=== PATIENT | female | born 1970 | race Caucasian/White ===

== ENCOUNTER 2020-04-02 12:42 | Outpatient (REF) | payer OTHER, SELFPAY ==
[2020-04-02 13:39] LABS: MANUAL DIFF FLAG NO
[2020-04-02 13:41] LABS: Basophils Absolute Auto 0.1 X10*3/uL (0.0-0.2); Basophils Percent Auto 0.6 % (0-2); Eosinophils Absolute Auto 0.1 X10*3/uL (0.0-0.4); Hematocrit 46.5 % (37-47); Hemoglobin 16.2 g/dl (12.0-16.0); Imm Gran Abs Auto 0.03 X10*3/uL (0.00-0.03); Imm Gran Pct Auto 0.3 % (0.0-0.4); Lymphocytes Absolute Auto 2.5 X10*3/uL (1.2-4.9); Lymphocytes Percent Auto 25.1 % (20-40); Mean Corpuscular HGB Conc 34.8 g/dl (31.0-35.0); Mean Corpuscular Hemoglobin 32.1 pg (27.0-33.0); Mean Corpuscular Volume 92.3 fL (80-98); Mean Platelet Volume 9.4 fL (9.4-12.3); Monocytes Absolute Auto 0.7 X10*3/uL (0.1-1.2); Monocytes Percent Auto 7.4 % (2-11); Neutrophils Absolute Auto 6.4 X10*3/uL (2.0-8.3); Neutrophils Percent Auto 65.6 % (45-73); Platelet Count 369 X10*3/uL (160-400); Red Blood Count 5.04 X10*6/uL (4.20-5.50); Red Cell Distribution Width 13.6 % (11.0-16.0); White Blood Count 9.8 X10*3/uL (4.8-10.8)
[2020-04-02 14:10] LABS: Alanine Aminotransferase 18 U/L (0-31); Albumin Level 4.6 g/dL (3.5-5.0); Alkaline Phosphatase 73 U/L (39-117); Anion Gap 14 (12-20); Aspartate Amino Transferase 17 U/L (5-31); Bilirubin Total 0.8 mg/dL (0.0-1.0); Blood Urea Nitrogen 8 mg/dL (9-16); C Reactive Protein 1.83 mg/dL (< or = 0.50); Calcium 9.1 mg/dL (8.4-10.2); Carbon Dioxide 25 mmol/L (22-29); Chloride 105 mmol/L (96-108); Estimated Glomerular Filt Rate > 60; Potassium 4.3 mmol/l (3.3-5.1); Sodium 140 mmol/L (135-145); Total Protein 7.2 g/dL (6.5-8.0)
[2020-04-02 14:22] LABS: Glucose Random 78 mg/dL (60-115)
== END 2020-04-02 12:43 | disposition home or self-care (01) ==
LOC: HO.10HDL 12:42
PROVIDERS: Visit Provider Internal Medicine
DX: M79.10 Myalgia, unspecified site (principal); E55.9 Vitamin D deficiency, unspecified; R53.1 Weakness
CPT/HCPCS: 36415; 80053; 82550; 85025; 86140

== ENCOUNTER 2020-04-18 15:38 | Outpatient (REF) | payer OTHER, SELFPAY ==
[2020-04-18 16:41] LABS: Glucose Urine UA NEG (NEG); Leukocyte Esterase Urine NEG (NEG); Nitrite Urine NEG (NEG); PH 5.5 (5.0-8.0); Specific Gravity - Urine <= 1.005 (1.005-1.025); Urine Blood TRACE (NEG); Urine Ketones NEG (NEG); Urine Protein NEG (NEG-TRACE)
[2020-04-18 16:43] LABS: Appearance Urine CLEAR; Color Urine STRAW
[2020-04-18 16:51] LABS: Bacteria Urine TRACE /LPF; RBC Urine 0 /HPF (0); Squamous Epithelial Cell Urine 1+ /LPF; WBC Urine 0 /HPF (0-4)
== END 2020-04-18 15:39 | disposition home or self-care (01) ==
LOC: HO.LAB 15:38
PROVIDERS: PCP Internal Medicine; Visit Provider Internal Medicine
DX: R30.0 Dysuria (principal)
CPT/HCPCS: 81001; 87086

== ENCOUNTER → 2020-06-28 12:52 | Outpatient (BNV) | payer BC, OTHER, SELFPAY | PROVIDERS: PCP Internal Medicine; Visit Provider Internal Medicine | DX: Z85.3 Personal history of malignant neoplasm of breast (principal); Z92.3 Personal history of irradiation | CPT/HCPCS: 99213 ==

== ENCOUNTER 2020-07-20 09:31 | Outpatient (REF) | payer OTHER, SELFPAY ==
[2020-07-20 10:10] LABS: MANUAL DIFF FLAG NO
[2020-07-20 10:13] LABS: Basophils Absolute Auto 0.1 X10*3/uL (0.0-0.2); Basophils Percent Auto 0.7 % (0-2); Eosinophils Absolute Auto 0.2 X10*3/uL (0.0-0.4); Eosinophils Percent Auto 2.2 % (0-4); Hematocrit 45.3 % (37-47); Hemoglobin 15.8 g/dl (12.0-16.0); Imm Gran Abs Auto 0.02 X10*3/uL (0.00-0.03); Imm Gran Pct Auto 0.3 % (0.0-0.4); Lymphocytes Absolute Auto 1.2 X10*3/uL (1.2-4.9); Lymphocytes Percent Auto 18.1 % (20-40); Mean Corpuscular HGB Conc 34.9 g/dl (31.0-35.0); Mean Corpuscular Hemoglobin 32.4 pg (27.0-33.0); Mean Platelet Volume 9.7 fL (9.4-12.3); Monocytes Absolute Auto 0.9 X10*3/uL (0.1-1.2); Monocytes Percent Auto 12.9 % (2-11); Neutrophils Absolute Auto 4.4 X10*3/uL (2.0-8.3); Neutrophils Percent Auto 65.8 % (45-73); Platelet Count 270 X10*3/uL (160-400); Red Blood Count 4.87 X10*6/uL (4.20-5.50); Red Cell Distribution Width 13.4 % (11.0-16.0); White Blood Count 6.7 X10*3/uL (4.8-10.8)
[2020-07-20 10:42] LABS: Alanine Aminotransferase 15 U/L (0-31); Albumin Level 4.3 g/dL (3.5-5.0); Alkaline Phosphatase 67 U/L (39-117); Anion Gap 15 (12-20); Aspartate Amino Transferase 15 U/L (5-31); Bilirubin Total 0.6 mg/dL (0.0-1.0); Blood Urea Nitrogen 9 mg/dL (9-16); Carbon Dioxide 25 mmol/L (22-29); Chloride 105 mmol/L (96-108); Cholesterol 182 mg/dL; Estimated Glomerular Filt Rate > 60; Glucose Fasting 98 mg/dL (60-99); HDL Cholesterol 56 mg/dL; LDL Cholesterol Calculated 115 mg/dl; Sodium 140 mmol/L (135-145); Total Protein 6.9 g/dL (6.5-8.0); Triglycerides 56 mg/dL
[2020-07-20 10:44] LABS: Glucose Urine UA NEG (NEG); Leukocyte Esterase Urine NEG (NEG); Nitrite Urine NEG (NEG); PH 6.5 (5.0-8.0); Urine Blood 1+ (NEG); Urine Ketones 5 MG/DL (NEG); Urine Protein TRACE MG/DL (NEG-TRACE)
[2020-07-20 10:45] LABS: Appearance Urine HAZY; Color Urine DARK YELLOW
[2020-07-20 10:58] LABS: Squamous Epithelial Cell Urine 2+ /LPF; WBC Urine 0-2 /HPF (0-4)
[2020-07-20 10:59] LABS: Bacteria Urine 1+ /LPF; Mucus Urine TRACE /LPF
[2020-07-20 11:03] LABS: Vitamin D 25-OH Total 29.5 ng/mL (>30)
== END 2020-07-20 09:32 | disposition home or self-care (01) ==
LOC: HO.LAB 09:31
PROVIDERS: PCP Internal Medicine; Visit Provider Internal Medicine
DX: Z00.00 Encounter for general adult medical examination without abnormal findings (principal); E55.9 Vitamin D deficiency, unspecified
CPT/HCPCS: 36415; 80053; 80061; 81001; 82306; 85025

== ENCOUNTER → 2020-08-13 15:32 | Outpatient (BNVA) | payer OTHER, SELFPAY | PROVIDERS: PCP Internal Medicine; Visit Provider Surgery ==

== ENCOUNTER 2020-11-14 11:10 | Outpatient (REF) | payer OTHER, SELFPAY ==
--- NOTE | ~2020-11-14 | MR_ITS ---
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 Bilateral benign biopsies, 2019. High-risk screening. Follow up. COMPARISON: MRI 10/26/2019 TECHNIQUE: Imaging was performed with a dedicated breast coil. Prior to the administration of contrast, bilateral axial T1 and bilateral axial T2 weighted sequences were obtained. After the uneventful administration of?6 mL of Gadavist, dynamic contrast-enhanced VIBRANT series through the breasts in the axial plane were performed. Subtracted images were performed and reviewed. A delayed sagittal sequence through both breasts was acquired. Additionally, CAD post-processing, including maximum intensity projections, 3-D reconstructions and kinetic analysis, were performed an independent workstation and reviewed by the interpreting radiologist is a portion of this exam. FINDINGS: The patient's heterogeneously dense fibroglandular tissue demonstrates moderate background enhancement, right greater than left. LEFT BREAST: There is architectural distortion in the upper outer quadrant posteriorly at the site of previous lumpectomy. No significant residual enhancement. Biopsy clip artifact with some associated enhancement is demonstrated in the 4:00 position, middle depth. Pathology results were benign. Previously described area of enhancement in the 3:00 position of the left breast, middle depth, is much less conspicuous on today's examination. No masslike lesion can be appreciated. Overall, no suspicious nonmasslike or masslike enhancement. Review of the T2-weighted images demonstrates mild hyperintensity within the anterior skin consistent with a history of radiation treatment. Review of the kinetic images demonstrates no additional suspicious findings. RIGHT BREAST: There is relatively diffuse increased enhancement throughout the right breast, asymmetric compared to the contralateral side. Finding is consistent with background parenchymal enhancement. In the 5:30 position of the right breast, 5.1 cm from the nipple, there is prominent area of nonmasslike enhancement measuring 0.8 cm size (image 81, series 105). Finding appears slightly increased enhancement relative to significant background parenchymal enhancement. Finding is considered probably benign. Review of the kinetics demonstrates type II enhancement. Recommend attention on follow-up. Right breast benign biopsies at 6:00, 9:00 and 12:00. Associated magnetic susceptibility artifact. The biopsy areas appear less prominent on the current study. Similarly prominent focus of enhancement is identified at 3:00, 1.8 cm from the nipple measuring 0.57 size (image 61, series 105). This finding is considered probably benign. Attention on follow-up recommended. Finding demonstrates type II central enhancement. No other definite suspicious nonmasslike or masslike enhancement within the right breast. Review of the T2-weighted images demonstrates no additional findings. There is no suspicious internal mammary chain or axillary adenopathy. Limited views of the chest and abdomen are unremarkable. MR/MR breast BI wo/w con IMPRESSION: Somewhat limited right breast evaluation secondary to significant background Enhancement. 1. Probably benign enhancement in the right breast at 5:30 and 3:00. Recommend follow-up MRI in 6 months. 2. Unremarkable benign bilateral biopsy sites. 3. Unremarkable left breast posttreatment changes. No MR specific evidence of new or current disease within the left breast. ASSESSMENT: LEFT BREAST: BI-RADS 2 - Benign Findings. RIGHT BREAST: BI-RADS 3 - Probably benign finding (s). Short interval followup suggested. RECOMMENDATIONS: Recommend follow-up right breast MRI in 6-12 months with attention to the probably benign areas discussed above.
== END 2020-11-14 11:11 | disposition home or self-care (01) ==
LOC: HO.MRI 11:10
PROVIDERS: PCP Internal Medicine; Visit Provider Surgery
DX: D05.10 Intraductal carcinoma in situ of unspecified breast (principal)
CPT/HCPCS: 77049; A9585

== ENCOUNTER 2020-12-11 14:55 | Outpatient (REF) | payer OTHER, SELFPAY ==
--- NOTE | ~2020-12-11 | MM_ITS ---
EXAMINATION: MM DIAGNOSTIC DIGITAL BREAST TOMOSYNTHESIS, BILATERAL CLINICAL INFORMATION: Prior left lumpectomy 2019, DCIS. Subsequent benign left stereotactic biopsy for calcifications and benign left ultrasound-guided left breast biopsy for nodule, both on 11/15/2019. Prior benign right MR biopsy x3 sites 11/28/2019. COMPARISON: Mammography: 11/28/2019, 11/15/2019, 11/08/2019, 09/29/2019, 02/13/2019, 01/23/2019. MRI breasts 11/14/2020, 10/26/2019. TECHNIQUE: Digital breast tomosynthesis is performed in both the craniocaudal and mediolateral oblique views along with computer-aided detection (CAD). Synthesized 2D images are generated from the tomosynthesis. Additional views are obtained: Left MLO, left magnification CC, left magnification ML. FINDINGS: The breasts are heterogeneously dense, which may obscure small masses (ACR BI-RADS breast composition Category c). There are postsurgical changes left breast with mild reduced breast size and stable scarring. Stereotactic biopsy clip marker again seen posterior upper outer quadrant. Right breast has 3 biopsy clip markers. There are shifting fibroglandular densities related to positioning. No significant change in parenchymal pattern. No interval mass or developing density or architectural abnormality. There are scattered coarse calcifications and some stable fine left mid calcifications outer quadrant. Results are provided to the patient at time of visit by the technologist. MM/MM tomosynthesis diagnostic BI IMPRESSION: No mammographic evidence of malignancy. ASSESSMENT: BI-RADS 2: Benign RECOMMENDATION: 1. Annual bilateral mammography. 2. Breast MRI in 6-12 months as follow-up to probable benign right breast findings noted on MR report 11/14/2020. This patient's information was entered into a reminder system with a target due date for their next mammogram.
== END 2020-12-11 14:56 | disposition home or self-care (01) ==
LOC: HO.MAMMO 14:55
PROVIDERS: Visit Provider Surgery
DX: D05.10 Intraductal carcinoma in situ of unspecified breast (principal)
CPT/HCPCS: 77062; 77066

== ENCOUNTER → 2021-03-18 15:24 | Outpatient (BNVA) | payer OTHER, SELFPAY | PROVIDERS: PCP Internal Medicine; Referring Provider Internal Medicine; Visit Provider Surgery ==

== ENCOUNTER 2021-06-17 16:38 | Outpatient (REF) | payer OTHER, SELFPAY ==
--- NOTE | ~2021-06-17 | MR_ITS ---
EXAMINATION: MR BREAST WITHOUT AND WITH CONTRAST, BILATERAL CLINICAL INFORMATION: Left periareolar erythema and mastodynia. Prior left lumpectomy and radiation therapy for breast cancer. Probably benign right breast finding 5:30. Dense breasts. COMPARISON: 11/14/2020. 11/28/2019. 10/26/2019. Mammography from 12/11/2020. TECHNIQUE: Imaging was performed with a dedicated breast coil. Prior to the administration of contrast, bilateral axial T1 and bilateral axial T2 weighted sequences were obtained. After the uneventful administration of?5.5 mL of Gadavist, dynamic contrast-enhanced VIBRANT series through the breasts in the axial plane were performed. Subtracted images were performed and reviewed. A delayed sagittal sequence through both breasts was acquired. Additionally, CAD post-processing, including maximum intensity projections, 3-D reconstructions and kinetic analysis, were performed an independent workstation and reviewed by the interpreting radiologist is a portion of this exam. FINDINGS: The breasts are comprised of heterogeneous, dense fiber glandular parenchyma. The tissue undergoes moderate background enhancement. Asymmetric right greater than left background enhancement again noted consistent with posttreatment change on the left. LEFT BREAST: There is new abnormal dermal enhancement in the medial right breast at 9:00 measuring approximately 5 x 5 cm. This regional skin thickening and enhancement is best appreciated on volume renderings. Enhancement is seen primarily along the basement membrane of the skin. Mammographically, skin thickening has improved, however an MR enhancement in the medial dermal layer is a new finding. Appearance is nonspecific and could represent cellulitis or less likely recurrence (history of high-grade DCIS). Recommend surgical consultation and punch biopsy. The left nipple areolar complex is normal in appearance. No mass or abnormal enhancement. No skin thickening or retraction. A rim-enhancing lesion previously noted in the left lower outer quadrant at 4:00, biopsy site, has resolved. No new left breast mass or dominant nonmass enhancement. RIGHT BREAST: Overall, background enhancement has decreased compared with prior. No suspicious mass or dominant nonmass enhancement. Scattered susceptibility artifacts from prior biopsies without associated enhancement. There is no suspicious internal mammary chain or axillary adenopathy. Limited views of the chest and abdomen are unremarkable. MR/MR breast BI wo/w con IMPRESSION: New abnormal nonmass enhancement within the medial skin of the right breast at 9:00. Recommend surgical consultation and consideration towards punch biopsy. ASSESSMENT: LEFT BREAST: BI-RADS 4, suspicious finding. RIGHT BREAST: BI-RADS 2, benign findings. RECOMMENDATIONS: Recommend surgical consultation for symptomatic left breast erythema, pain and skin enhancement medially. Punch biopsy is suggested.
== END 2021-06-17 16:39 | disposition home or self-care (01) ==
LOC: HO.MRI 16:38
PROVIDERS: Visit Provider Surgery
DX: D05.12 Intraductal carcinoma in situ of left breast (principal); Z91.89 Other specified personal risk factors, not elsewhere classified
CPT/HCPCS: 77049; A9585

== ENCOUNTER 2021-06-24 08:53 | Outpatient (REF) | payer OTHER, SELFPAY | END 2021-06-24 08:54 | disposition home or self-care (01) | LOC: CF 08:53 | PROVIDERS: PCP Internal Medicine; Referring Provider Internal Medicine; Visit Provider Surgery | DX: D05.12 Intraductal carcinoma in situ of left breast (principal); Z79.899 Other long term (current) drug therapy; Z87.891 Personal history of nicotine dependence | CPT/HCPCS: 88305; 88341; 88342 ==

== ENCOUNTER → 2021-07-01 09:07 | Outpatient (BNVA) | payer OTHER, SELFPAY | PROVIDERS: PCP Internal Medicine; Referring Provider Internal Medicine; Visit Provider Surgery ==

== ENCOUNTER → 2021-10-14 15:19 | Outpatient (BNVA) | payer OTHER, SELFPAY | PROVIDERS: PCP Internal Medicine; Referring Provider Internal Medicine; Visit Provider Surgery | DX: D05.10 Intraductal carcinoma in situ of unspecified breast (principal) ==

== ENCOUNTER 2021-10-17 08:25 | Outpatient (REF) | payer OTHER, SELFPAY ==
--- NOTE | ~2021-10-17 | MM_ITS ---
EXAMINATION: MM DIAGNOSTIC DIGITAL BREAST TOMOSYNTHESIS, BILATERAL US DIAGNOSTIC ULTRASOUND BREAST, RIGHT CLINICAL INFORMATION: Palpable concern noted by patient right breast. Prior left lumpectomy 2019, DCIS. Subsequent benign left stereotactic biopsy for calcifications and benign left ultrasound-guided left breast biopsy for nodule, both on 11/15/2019. Prior benign right MR biopsy x3 sites 11/28/2019. MRI 06/07/1821 demonstrated enhancement medial skin left breast, unremarkable right breast. Subsequent and skin biopsy left breast benign, 06/25/2021 (skin with superficial and deep dermal perivascular chronic inflammation and fibrosis no malignancy identified). COMPARISON: Mammography: 12/11/2020, 11/15/2019, 11/08/2019, 09/29/2019, 02/13/2019, 01/27/2019, 01/23/2019; MRI bilateral breasts 06/17/2021. TECHNIQUE: Digital breast tomosynthesis is performed in both the craniocaudal and mediolateral oblique views along with computer-aided detection (CAD). Synthesized 2D images are generated from the tomosynthesis. Additional views are obtained: Magnification left CC, magnification left ML; spot right CC, rolled right CC x2. Ultrasound right breast is targeted to the areas of clinical concern. Grayscale imaging and color Doppler are performed without and with harmonics. FINDINGS: The breasts are heterogeneously dense, which may obscure small masses (ACR BI-RADS breast composition Category c). Parenchymal pattern is similar to prior exam. There is no developing density or interval mass or architectural abnormality. Again, there are postsurgical changes left breast with mild reduced breast size and stable scarring. Biopsy clip marker again seen upper outer posterior left breast. The right breast again shows 3 biopsy clip markers. There are focal oval benign skin changes medial left breast from the punch biopsy. Targeted ultrasound right breast demonstrates no cystic or solid mass or architectural abnormality or focal duct ectasia. Results are discussed with the patient at time of visit. Patient to follow-up with Dr. Lozano. MM/MM tomosynthesis diagnostic BI IMPRESSION: -Mammography shows no changes from prior exams. -Unremarkable targeted right breast ultrasound. ASSESSMENT: BI-RADS 2: Benign RECOMMENDATION: 1. Patient should be managed based on the clinical impression. Decision to proceed with biopsy should be based on clinical grounds and degree of clinical concern. 2. Otherwise, annual bilateral mammography. This patient's information was entered into a reminder system with a target due date for their next mammogram.
== END 2021-10-17 08:26 | disposition home or self-care (01) ==
LOC: HO.MAMMO 08:25
PROVIDERS: PCP Internal Medicine; Visit Provider Surgery
DX: D05.10 Intraductal carcinoma in situ of unspecified breast (principal); Z91.89 Other specified personal risk factors, not elsewhere classified
CPT/HCPCS: 76642; 77062; 77066

== ENCOUNTER 2021-12-05 11:18 | Outpatient (REF) | payer OTHER, SELFPAY ==
--- NOTE | ~2021-12-05 | CT_ITS ---
EXAMINATION: CT ABDOMEN AND PELVIS WITHOUT CONTRAST CLINICAL INFORMATION: Right lower quadrant pain COMPARISON: None TECHNIQUE: Multidetector volumetric imaging was performed from the superior aspect of the liver through the pubic symphysis. Sagittal and coronal reformatted images were obtained on the technologist's workstation. This CT examination was performed using dose optimization techniques as appropriate, variously including the following: *Automated exposure control *Adjustment of mA and/or kV according to patient size (this includes techniques or standardized protocols for targeted exams where dose is matched to indication/reason for exam; i.e. extremities or head) *Use of iterative reconstruction technique DLP: 392 mGy-cm FINDINGS: LUNG BASES: The visualized lung bases are unremarkable. LIVER, GALLBLADDER, AND BILIARY TREE: The liver is normal in size, shape, and attenuation. No focal hepatic lesion or biliary ductal dilatation is present. The gallbladder is unremarkable with no evidence of radiopaque gallstones, gallbladder wall thickening, or obvious pericholecystic inflammatory changes. PANCREAS: Unremarkable. SPLEEN: There are calcifications in the spleen probably from old granulomatous disease. The spleen is otherwise normal. ADRENAL GLANDS: Unremarkable. KIDNEYS AND URETERS: The kidneys are normal in size, shape, and attenuation. No hydronephrosis, hydroureter, or calculi seen. No perinephric stranding. BLADDER: Unremarkable. GASTROINTESTINAL TRACT: There is question of mild wall thickening of the left colon versus changes due to underdistention. Small and large bowel is otherwise unremarkable. The appendix is normal. The stomach is normal. ABDOMINAL WALL: No significant hernia is appreciated. LYMPH NODES: Normal. VASCULAR: Unremarkable. PELVIC VISCERA: The uterus appears to have been removed. No pelvic mass is seen. OSSEOUS STRUCTURES: Unremarkable. CT/CT abdomen pelvis wo con IMPRESSION: Question mild colitis of the left colon versus changes due to underdistention. Otherwise unremarkable exam. The appendix is normal appearing. Fleischner guidelines were followed.
== END 2021-12-05 11:19 | disposition home or self-care (01) ==
LOC: HO.CT 11:18
PROVIDERS: PCP Internal Medicine; Visit Provider Surgery
DX: R10.31 Right lower quadrant pain (principal)
CPT/HCPCS: 74176

== ENCOUNTER → 2022-07-23 15:24 | Outpatient (BNVA) | payer OTHER, SELFPAY | PROVIDERS: PCP Internal Medicine; Visit Provider Surgery | DX: Z91.89 Other specified personal risk factors, not elsewhere classified (principal); D05.10 Intraductal carcinoma in situ of unspecified breast ==

== ENCOUNTER 2022-07-29 14:50 | Outpatient (REF) | payer OTHER, SELFPAY ==
--- NOTE | ~2022-07-29 | MR_ITS ---
EXAMINATION: MR BREAST WITHOUT AND WITH CONTRAST, BILATERAL CLINICAL INFORMATION: High-risk screening. History of left breast cancer treated with lumpectomy and radiation. Recent palpable area of concern, right breast, lower outer quadrant. COMPARISON: 06/17/2021, 12/14/2020. TECHNIQUE: Imaging was performed with a dedicated breast coil. Prior to the administration of contrast, bilateral axial T1 and bilateral axial T2 weighted sequences were obtained. After the uneventful administration of?6 mL of Gadavist, dynamic contrast-enhanced VIBRANT series through the breasts in the axial plane were performed. Subtracted images were performed and reviewed. A delayed sagittal sequence through both breasts was acquired. Additionally, CAD post-processing, including maximum intensity projections, 3-D reconstructions and kinetic analysis, were performed an independent workstation and reviewed by the interpreting radiologist is a portion of this exam. FINDINGS: The patient's fibroglandular tissue demonstrates moderate background enhancement. LEFT BREAST: Postsurgical changes related to previous lumpectomy are redemonstrated. No new suspicious non-mass or mass enhancement. Review of the T2-weighted images demonstrates no additional findings. Review of the kinetic images demonstrates no additional suspicious findings. RIGHT BREAST: In the lower outer quadrant of the right breast, 7 o'clock position, 2.4 cm from the nipple, there is a T1 hypointense mass-like area of enhancement measuring 1.0 x 1.3 cm (image 73, series 100). No T2 correlate. This finding is stable compared to 2020. In the 8 o'clock position, 3.4 cm from the nipple, there is a second mass-like area of enhancement measuring 1.7 x 1.3 cm (image 68, series 100). This finding demonstrates type I and type II enhancement. Finding appears increased in size versus new compared with the 2020 study. Recommend further evaluation with targeted ultrasound. Consider further evaluation with second-look ultrasound. In the 4 o'clock position, 4.8 cm from the nipple, there is a band of linear non-mass enhancement measuring 2.5 cm anterior to posterior (image 66, series 100). This finding is overall decreased in size and degree compared with the 2020 examination, favoring a benign process. No other suspicious non-mass or mass enhancement within the right breast compared to prior studies. Review of the T2-weighted images demonstrates no additional findings. There is no suspicious internal mammary chain or axillary adenopathy. Limited views of the chest and abdomen are unremarkable. MR/MR breast BI wo/w con IMPRESSION: 1. Indeterminate mass-like area of enhancement, right breast, 8 o'clock. Targeted second-look ultrasound is recommended. If this area cannot be further clarified with ultrasound, consider MRI-guided core biopsy. 2. Stable left breast posttreatment changes. ASSESSMENT: LEFT BREAST: BI-RADS 2 - Benign Findings. RIGHT BREAST: BI-RADS 4 - Suspicious abnormality - Biopsy should be considered. RECOMMENDATIONS: Right breast diagnostic ultrasound. Recommendation called to referring office.
== END 2022-07-29 14:51 | disposition home or self-care (01) ==
LOC: HO.MRI 14:50
PROVIDERS: PCP Internal Medicine; Visit Provider Surgery
DX: D05.10 Intraductal carcinoma in situ of unspecified breast (principal); N63.13 Unspecified lump in the right breast, lower outer quadrant; Z91.89 Other specified personal risk factors, not elsewhere classified
CPT/HCPCS: 77049; A9585

== ENCOUNTER 2022-08-14 09:26 | Outpatient (REF) | payer OTHER, SELFPAY ==
--- NOTE | ~2022-08-14 | US_ITS ---
EXAMINATION: US DIAGNOSTIC ULTRASOUND BREAST, RIGHT CLINICAL INFORMATION: Suspicious MRI findings.. COMPARISON: MRI of 07/29/2022 and studies dating back to 01/23/2019. TECHNIQUE: Ultrasound of the breast is performed with real-time jameson scale imaging and color Doppler. FINDINGS: About the 8 o'clock position of the right breast, 4 cm from the nipple, demonstrates an irregularly marginated hypoechoic region measuring 1.5 x 0.6 x 1.3 cm in size without distal sound shadowing and with a question of minimal distal sound enhancement. No internal vascularity was appreciated. This corresponds in size and shape to the MRI finding. Right breast ultrasound-guided core biopsy will be performed. Results are discussed with the patient at time of visit. US/US breast RT limited IMPRESSION: Ultrasound findings right breast 8 o'clock position, 4 cm from the nipple, for which ultrasound-guided core biopsy is recommended. ASSESSMENT: BI-RADS 4: Suspicious RECOMMENDATION: Ultrasound-guided core biopsy right breast.
--- NOTE | ~2022-08-14 | MM_ITS ---
PROCEDURE: US GUIDED BREAST BIOPSY, RIGHT CLINICAL INFORMATION: Hypoechoic lesion corresponding in size and location to MRI finding. COMPARISON: MRI of July 29, 2022 and studies dating back to January 23, 2019 PROCEDURAL DETAILS: The details of the procedure, as well as the risks, benefits, and alternatives to the procedure were explained to the patient in detail and all of her questions were answered, after which written informed consent was obtained. Site and side were confirmed. Prior to the procedure, sonography revealed a hypoechoic poorly circumscribed lesion 8:00 position 4 cm from the nipple. A time-out was performed, the lesion intended for biopsy was targeted, and the skin of the right breast was then prepped and draped in the usual sterile fashion. Using sonographic guidance, sterile technique, and 1% lidocaine without epinephrine for local anesthesia, multiple automated core biopsies were obtained through the targeted area with a 14G spring loaded Achieve core biopsy device. There was real-time confirmation of appropriate needle passage. Sampling was documented. At the completion of tissue sampling, a single butterfly-shaped metallic clip was deposited at the biopsy site. There was no evidence of immediate complication. SPECIMEN: An appropriate sample was obtained. DIGITAL POST-PROCEDURE MAMMOGRAPHY: Breast density: The tissue is heterogeneously dense which may obscure small masses. BI-RADS version 5, category C. There are no new mammographic findings demonstrated. The postprocedure 2-view direct digital mammogram reveals satisfactory positioning of the biopsy clip. The patient tolerated the procedure well and, after assuring adequate hemostasis, was discharged in good condition after reviewing postbiopsy breast care instructions. Final pathology results are pending. MM/MM diagnostic mammo unilat RT IMPRESSION: 1. No immediate complication from ultrasound-guided percutaneous biopsy right breast. 2. Ultrasound was used to localize and guide marker clip placement. 3. The 2-view direct digital postprocedure mammogram reveals satisfactory positioning of the biopsy clip. 4. Final pathology results are pending. A separate report with final recommendations will be issued once these results are made available.
== END 2022-08-14 09:27 | disposition home or self-care (01) ==
LOC: HO.MAMMO 09:26
PROVIDERS: PCP Internal Medicine; Visit Provider Surgery
DX: D05.11 Intraductal carcinoma in situ of right breast (principal); Z91.89 Other specified personal risk factors, not elsewhere classified
CPT/HCPCS: 19083; 76642; 77062; 77065; 88305

== ENCOUNTER 2022-12-29 15:08 | Outpatient (AMB) | payer OTHER, SELFPAY ==
--- NOTE | 2022-12-29 15:09 | A.OFFVIS_ITS ---
Intake Vital Signs 12/29/22 15:15 Height 5 ft 2 in Weight 127 lb BMI 23.2 BP 147/83 H Blood Pressure Location Lt brachial Position Sitting Pulse 78 Intake Visit Reasons: hard lump under nipple rt breast Intake Note: Patient is seen in office for hard lump under nipple in the right breast. 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 She noticed this approximately 3 weeks ago with no signifi cant change since then. 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 She subsequent underwent radiation therapy at [facility] (Dr. Garcia) completed on 05/10/2019. She was evaluated at Dr. Villafana and no further treatment recommended. She continues on high risk protocol with yearly mammogram and breast MRIs. An ultrasound-guided and stereotactic guided core biopsy performed on 11/09/2019 as well as a MR guided biopsy on 11/28/2019 revealed benign breast tissue with no evidence of malignancy. She is due for her annual bilateral screening mammogram. [facility] Medical History Anxiety Depression Partial obstruction of small intestine Surgical History History of colonoscopy (05/2019) History of left breast biopsy (02/02/19) Hx of hysterectomy (2005) Hx of lumpectomy (02/13/19) Family History Father Mesothelioma Emphysema lung Maternal Grandmother Heart attack Paternal Aunt Aneurysm Social History Household Members: Significant Other Housing: House Alcohol intake: former Patient Tobacco Use Status: Current someday Tobacco user Tobacco use type: Cigarette and Cigar Cigarette Packs Per Day: 1 Use of substances other than those prescribed or required for medical reasons: Yes Substance Use Type: Marijuana Have you been hit, kicked, punched, or otherwise hurt by someone within the past year? If so, by whom?: No Do you feel safe in your current relationship?: Yes Is there a partner from a previous relationship who is making you feel unsafe now?: No Do you have thoughts of harming others: None Do you have a plan to hurt others: No Plan Do you have the means to hurt others: No Recently lost weight without trying: No Current occupational status: employed Review of Systems Const All systems reviewed & are unremarkable except as noted in HPI and below Card Reports no additional complaints Resp Reports no additional complaints Denies nipple discharge Skin/Breast Denies breast skin changes, Denies breast pain, Reports breast mass, Denies change in breast shape, Denies change in pigmentation and Denies nipple discharge Neuro Reports no additional complaints Physical Exam Vital Signs: Last Vital Signs Pulse 78 12/29/22 15:15 BP 147/83 H 12/29/22 15:15 BMI result Body Mass Index 23.2 Const General: no acute distress and well developed Nutritional Appearance: well nourished Orientation/consciousness: patient oriented x3 Chest Other: Right breast with no skin change, nipple discharge, nipple retraction, or enlarged lymph nodes. A palpable soft nodule is noted in the 07:00 o'clock location in a subareolar position, no overlying skin changes, mobile within the breast tissue. Left breast revealed postoperative changes and post therapy changes. No new palpable mass, skin change, nipple discharge, or enlarged lymph node is appreciated. Chest/axillae images: 1. Soft mobile mass in the 7 o'clock position subareolar, possible cyst. Resp Effort & Inspection: normal respiratory effort GI Inspection: Yes normal to inspection Skin General skin exam: no rashes or lesions noted Neuro General: patient oriented x3 Extrem General: Yes no clubbing, cyanosis or edema Assessment & Plan Assessment & Plan (1) At high risk for breast cancer: Code(s): Z91.89 - Other specified personal risk factors, not elsewhere classified (2) DCIS (ductal carcinoma in situ) of breast: Code(s): D05.10 - Intraductal carcinoma in situ of unspecified breast (3) Breast mass, right: Comment: 07:00 o'clock subareolar Code(s): N63.10 - Unspecified lump in the right breast, unspecified quadrant Plan 52-year-old female patient with a prior history of left breast DCIS with a new palpable lump noted on self examination in the right breast as noted above. On examination the lesion is soft and mobile, suggestive of a small cyst. I recommended a diagnostic bilateral mammogram and ultrasound of the right breast. I will call her with the results once they are completed. Orders: Orders MM diagnostic mammo BI 12/29/22 D05.10 - Intraductal carcinoma in situ of unspecified breast, N63.10 - Unspecified lump in the right breast, unspecified quadrant, Z91.89 - Other specified personal risk factors, not elsewhere classified US breast needle loc RT 12/29/22 D05.10 - Intraductal carcinoma in situ of unspecified breast, N63.10 - Unspecified lump in the right breast, unspecified quadrant, Z91.89 - Other specified personal risk factors, not elsewhere classified Coding Level of Care Code Est Pt Level 3 (32797) Diagnoses At high risk for breast cancer Z91.89 DCIS (ductal carcinoma in situ) of breast D05.10 Breast mass, right N63.10
[2022-12-29 15:15] VITALS: BP 147/83; PULSE 78; BMI 23.2
== END 2022-12-29 15:22 | disposition home or self-care (01) ==
PROVIDERS: PCP Internal Medicine; Visit Provider Surgery
DX: D05.12 Intraductal carcinoma in situ of left breast (principal); N63.10 Unspecified lump in the right breast, unspecified quadrant; Z91.89 Other specified personal risk factors, not elsewhere classified
CPT/HCPCS: 99213

== ENCOUNTER → 2022-12-29 15:08 | Outpatient (BNVA) | payer OTHER, SELFPAY | PROVIDERS: PCP Internal Medicine; Visit Provider Surgery ==

== ENCOUNTER 2023-01-09 08:11 | Outpatient (REF) | payer OTHER, SELFPAY ==
[2023-01-09 08:30] LABS: MANUAL DIFF FLAG NO
[2023-01-09 09:03] LABS: Basophils Absolute Auto 0.1 X10*3/uL (0.0-0.2); Basophils Percent Auto 0.8 % (0-2); Eosinophils Absolute Auto 0.2 X10*3/uL (0.0-0.4); Eosinophils Percent Auto 2.2 % (0-4); Hematocrit 41.8 % (37.0-47.0); Hemoglobin 14.2 g/dl (12.0-16.0); Imm Gran Abs Auto 0.03 X10*3/uL (0.00-0.03); Imm Gran Pct Auto 0.3 % (0.0-0.4); Lymphocytes Absolute Auto 2.2 X10*3/uL (1.2-4.9); Lymphocytes Percent Auto 21.7 % (20-40); Mean Corpuscular Hemoglobin 31.8 pg (27.0-33.0); Mean Corpuscular Volume 93.7 fL (80.0-98.0); Mean Platelet Volume 9.6 fL (9.4-12.3); Monocytes Absolute Auto 0.7 X10*3/uL (0.1-1.2); Monocytes Percent Auto 6.9 % (2-11); Neutrophils Absolute Auto 6.8 x10*3/uL (2.0-8.3); Neutrophils Percent Auto 68.1 % (45-73); Platelet Count 321 X10*3/uL (160-400); Red Blood Count 4.46 X10*6/uL (4.20-5.50); White Blood Count 9.9 X10*3/uL (4.8-10.8)
[2023-01-09 09:26] LABS: Alanine Aminotransferase 15 U/L (0-31); Albumin Level 4.1 g/dL (3.5-5.0); Alkaline Phosphatase 63 U/L (39-117); Anion Gap 10 (12-20); Aspartate Amino Transferase 13 U/L (5-31); Bilirubin Total 0.2 mg/dL (0.0-1.0); Blood Urea Nitrogen 16 mg/dL (9-16); Calcium 9.1 mg/dL (8.4-10.2); Carbon Dioxide 25 mmol/L (22-29); Chloride 112 mmol/L (96-108); Cholesterol 132 mg/dL; Estimated Glomerular Filt Rate > 60; Glucose Random 93 mg/dL (60-115); HDL Cholesterol 50 mg/dL; LDL Cholesterol Calculated 77 mg/dl; Lipase 27 U/L (8-78); Potassium 4.3 mmol/L (3.3-5.1); Sodium 143 mmol/L (135-145); Total Protein 6.6 g/dL (6.5-8.0); Triglycerides 27 mg/dL
== END 2023-01-09 08:12 | disposition home or self-care (01) ==
LOC: HO.LAB 08:11
PROVIDERS: Absent Provider Internal Medicine; PCP Internal Medicine; Visit Provider Internal Medicine
DX: R10.9 Unspecified abdominal pain (principal); E55.9 Vitamin D deficiency, unspecified; Z72.0 Tobacco use
CPT/HCPCS: 36415; 80053; 80061; 83690; 85025

== ENCOUNTER 2023-01-11 13:49 | Outpatient (REF) | payer OTHER, SELFPAY ==
--- NOTE | ~2023-01-11 | US_ITS ---
EXAMINATION: MM DIAGNOSTIC DIGITAL BREAST TOMOSYNTHESIS, RIGHT US BREAST LIMITED, RIGHT MAMMOGRAPHY: CLINICAL INFORMATION: 52-year-old female presenting because patient's physician felt small palpable abnormality in the right breast 7:00 subareolar region, slightly mobile, possibly a cyst. Patient is high-risk with history of left breast DCIS with lumpectomy in 2019. COMPARISON: Mammography: 08/14/2022, 07/29/2022 MRI breast, 10/17/2021, 12/11/2020, and numerous additional priors. TECHNIQUE: Digital right breast tomosynthesis is performed in both the craniocaudal and mediolateral oblique views along with computer-aided detection (CAD). Synthesized 2D images are generated from the tomosynthesis. In addition, 3-D spot compression small David right MLO and CC views were performed. FINDINGS: The breasts are heterogeneously dense, which may obscure small masses (ACR BI-RADS breast composition Category c). The region of palpable concern in the 7:00 axis of the anterior right breast has been marked by the technologist. There is no underlying mass, area of architectural distortion, or other abnormality to account for the palpable focus. Only normal-appearing heterogeneously dense breast parenchyma is identified. There are 4 separate post benign biopsy clips within the right breast. No suspicious grouped calcifications, masses, or areas of architectural distortion are identified. There are no skin changes. Results were discussed with the patient at time of visit. ULTRASOUND: CLINICAL INFORMATION: Palpable abnormality 7:00 periareolar region. COMPARISON: Right breast ultrasound 08/14/2022. TECHNIQUE: Targeted sonographic evaluation right breast was performed using a high frequency linear transducer, in the region as indicated by the patient. Selected archived documentation. FINDINGS: RIGHT BREAST: There is heterogeneously dense fibroglandular tissue present. No cystic abnormality or solid mass is identified. There is no pathologic acoustic shadowing. No ultrasonographic correlate to the region of palpable concern. US/US breast RT limited mamm only IMPRESSION: There is no mammographic or sonographic correlate to the focus of palpable concern anterior right breast. There are no imaging findings suspicious for malignancy. Recommend clinical management in regard to the focus of palpable concern. OVERALL ASSESSMENT: Mammography: BI-RADS 2 - Benign Findings Ultrasound: BI-RADS 2 - Benign Findings RECOMMENDATION: 1 year F/U Clinical management. This patient's information was entered into a reminder system with a target due date for their next mammogram.
== END 2023-01-11 13:50 | disposition home or self-care (01) ==
LOC: HO.MAMMO 13:49
PROVIDERS: PCP Internal Medicine; Visit Provider Surgery
DX: N63.13 Unspecified lump in the right breast, lower outer quadrant (principal)
CPT/HCPCS: 76642; 77061; 77065

== ENCOUNTER → 2023-01-11 14:00 | Outpatient (BNV) | payer OTHER, SELFPAY | PROVIDERS: PCP Internal Medicine; Visit Provider Radiology Diagnostic Radiology | DX: N63.10 Unspecified lump in the right breast, unspecified quadrant (principal) | CPT/HCPCS: 76642; 77061; 77065 ==

== ENCOUNTER 2023-01-15 10:27 | Outpatient (AMB) | payer OTHER, SELFPAY ==
--- NOTE | 2023-01-15 10:34 | A.OFFVIS_ITS ---
Intake Vital Signs 01/15/23 10:39 Height 5 ft 2 in Weight 128 lb 8 oz BMI 23.5 BP 124/80 Blood Pressure Location Lt brachial Position Sitting Pulse 75 Intake Visit Reasons: breast pain Intake Note: Patient is seen in office for breast pain, discuss possible lumpectomy. 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 She noticed this in mid November with no significant change since then. 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 She subsequent underwent radiation therapy at [facility] (Dr. Garcia) completed on 05/10/2019. She was evaluated at Dr. Villafana and no further treatment recommended. She continues on high risk protocol with yearly mammogram and breast MRIs. An ultrasound-guided and stereotactic guided core biopsy performed on 11/09/2019 as well as a MR guided biopsy on 11/28/2019 revealed benign breast tissue with no evidence of malignancy. Diagnostic mammogram and ultrasound on 01/11/2023 revealed no mammographic or ultrasound evidence of malignancy and no changes to explain the palpable abnormality (BI-RADS 2). The patient continues to feel the palpable nodule with associated pain pain and is requesting excision. COUNT INCLUDES [facility] Medical History Anxiety Depression Partial obstruction of small intestine Surgical History History of colonoscopy (05/2019) History of left breast biopsy (02/02/19) Hx of hysterectomy (2005) Hx of lumpectomy (02/13/19) Family History Father Mesothelioma Emphysema lung Maternal Grandmother Heart attack Paternal Aunt Aneurysm Social History Household Members: Significant Other Housing: House Alcohol intake: former Patient Tobacco Use Status: Current someday Tobacco user Tobacco use type: Cigarette and Cigar Cigarette Packs Per Day: 1 Substance Use Type: Marijuana Current occupational status: employed Review of Systems Const All systems reviewed & are unremarkable except as noted in HPI and below Card Reports no additional complaints Resp Reports no additional complaints Denies nipple discharge Skin/Breast Denies breast skin changes, Denies breast pain, Reports breast mass, Denies change in breast shape, Denies change in pigmentation and Denies nipple discharge Neuro Reports no additional complaints Physical Exam Vital Signs: Last Vital Signs Pulse 75 01/15/23 10:39 BP 124/80 01/15/23 10:39 BMI result Body Mass Index 23.5 Const General: no acute distress and well developed Nutritional Appearance: well nourished Orientation/consciousness: patient oriented x3 Chest Other: Right breast with no skin change, nipple discharge, nipple retraction, or enlarged lymph nodes. A palpable soft nodule is noted in the 07:00 o'clock location in a subareolar position, no overlying skin changes, mobile within the breast tissue. Left breast revealed postoperative changes and post therapy changes. No new palpable mass, skin change, nipple discharge, or enlarged lymph node is appreciated. Chest/axillae images: 1. Site of palpable nodule, subareolar at approximately the 7 o'clock position. Resp Effort & Inspection: normal respiratory effort GI Inspection: Yes normal to inspection Skin General skin exam: no rashes or lesions noted Neuro General: patient oriented x3 Extrem General: Yes no clubbing, cyanosis or edema Assessment & Plan Assessment & Plan (1) Breast mass, right: Comment: 07:00 o'clock subareolar Code(s): N63.10 - Unspecified lump in the right breast, unspecified quadrant (2) DCIS (ductal carcinoma in situ) of breast: Code(s): D05.10 - Intraductal carcinoma in situ of unspecified breast Plan 52-year-old female patient with a prior history of left DCIS now with a new palpable mass in the right breast. Workup with mammogram and ultrasound was negative however the patient continue just to have symptoms at this location. Examination there is a palpable nodule located just below the nipple-areolar complex in the 7 o'clock position. We discussed observation verses excision. Patient wishes to have the lesion removed. After discussion of the procedure, risks, and alternatives, she consents to the right breast lumpectomy. Coding Level of Care Code Global (11939) Diagnoses Breast mass, right N63.10 DCIS (ductal carcinoma in situ) of breast D05.10
[2023-01-15 10:39] VITALS: BP 124/80; PULSE 75; BMI 23.5
== END 2023-01-15 10:47 | disposition home or self-care (01) ==
PROVIDERS: PCP Internal Medicine; Visit Provider Surgery
DX: N63.10 Unspecified lump in the right breast, unspecified quadrant (principal); D05.10 Intraductal carcinoma in situ of unspecified breast
CPT/HCPCS: 99214

== ENCOUNTER → 2023-01-15 10:27 | Outpatient (BNVA) | payer OTHER, SELFPAY | PROVIDERS: PCP Internal Medicine; Visit Provider Surgery ==

== ENCOUNTER 2023-01-25 07:54 | Day surgery (SDC) | payer OTHER, SELFPAY ==
--- NOTE | 2023-01-22 08:31 | HO.ANESPROP2 ---
Documented by User: Beatriz Mtz NP 01/22/23 08:35 HPI - Anesthesia Eval Consult details Narrative: 52yo F for Right Breast Lumpectomy Hx of L breast lumpectomy 2019 for DCIS Imaging of current mass not suggestive of malignancy. [facility] Active Problems Active Problems: All Active Problems (Updated 12/29/22 @ 15:51 by Gisele Villafana MD) Breast mass, right (Acute) Right lower quadrant abdominal pain (Acute) At high risk for breast cancer (Acute) DCIS (ductal carcinoma in situ) of breast (Chronic) Past Medical History Medical History Anxiety Depression Partial obstruction of small intestine Family History Family History Father Mesothelioma Emphysema lung Maternal Grandmother Heart attack Paternal Aunt Aneurysm Surgical History Surgical History History of colonoscopy (05/2019) History of left breast biopsy (02/02/19) Hx of hysterectomy (2005) Hx of lumpectomy (02/13/19) Social History Social History Household Members: Significant Other Housing: House Alcohol intake: former Patient Tobacco Use Status: Current everyday Tobacco user Tobacco use type: Cigarette and Cigar Cigarette Packs Per Day: 1 Use of substances other than those prescribed or required for medical reasons: Yes Substance Use Type: Marijuana Substance Use Frequency: Daily Are you DNR?: No Advance Directives: No Advance Directives Information Provided: Yes Advance Directives on File: No Current occupational status: employed Meds Allergies Allergy/AdvReac Type Severity Reaction Status Date / Time No Known Allergies Allergy Unverified 01/15/23 10:39 Home Medications Medication Instructions Recorded Confirmed Last Taken Type cholecalciferol (vitamin D3) 25 1 cap PO DAILY 06/28/20 01/15/23 Unknown History mcg (1,000 unit) capsule (Vitamin D3) fluvoxamine 50 mg tablet 3 tab PO DAILY 06/28/20 01/15/23 Unknown History Exam Exam Date and Time: January 22, 2023 0831 Pertinent Lab Results Pertinent Lab Results: Laboratory Tests 01/09/23 01/09/23 08:28 08:28 WBC 9.9 Hgb 14.2 Hct 41.8 Plt Count 321 Sodium 143 Potassium 4.3 Chloride 112 H Carbon Dioxide 25 BUN 16 Creatinine 0.73 Assessment and Plan Assessment Anesthesia Assessment: Chart Reviewed Documented by User: More Healy MD 01/25/23 08:16 PMFSH Past Medical History Medical History Anxiety Depression Partial obstruction of small intestine Family History Family History Father Mesothelioma Emphysema lung Maternal Grandmother Heart attack Paternal Aunt Aneurysm Family history of problems with anesthesia: No Surgical History Surgical History History of colonoscopy (05/2019) History of left breast biopsy (02/02/19) Hx of hysterectomy (2005) Hx of lumpectomy (02/13/19) History of Problems with Anesthesia: No Social History Social History Household Members: Significant Other Housing: House Alcohol intake: former Patient Tobacco Use Status: Current everyday Tobacco user Tobacco use type: Cigarette and Cigar Cigarette Packs Per Day: 1 Use of substances other than those prescribed or required for medical reasons: Yes Substance Use Type: Marijuana Substance Use Frequency: Daily Are you DNR?: No Advance Directives: No Advance Directives Information Provided: Yes Advance Directives on File: No Current occupational status: employed Meds Allergies Allergy/AdvReac Type Severity Reaction Status Date / Time No Known Allergies Allergy Unverified 01/15/23 10:39 Home Medications Medication Instructions Recorded Confirmed Last Taken Type cholecalciferol (vitamin D3) 25 1 cap PO DAILY 06/28/20 01/15/23 Unknown History mcg (1,000 unit) capsule (Vitamin D3) fluvoxamine 50 mg tablet 3 tab PO DAILY 06/28/20 01/15/23 Unknown History Exam Airway Mallampati Class: II TM Dist: >3cm Neck ROM: Full Heart: rrr Lungs: cta Assessment and Plan Assessment Anesthesia Assessment: Anesthesia Plan Discussed Final Anesthetic Review Family History of Problems with Anesthesia: No History of Problems with Anesthesia: No NPO: Yes ASA Class: III Final Preanesthetic Review: No Changes in Pt Med Stat, Meds/Allgs Chart Reviewed, Consent Obtained/Reviewed and Anes Risks/Benef Reviewed Patient Risk: Intermediate (smoked cigars and marihuanathis AM ) Procedure Risk: Low Anesthetic Plan Anesthetic Plan: GA Disposition: Standard PACU
[2023-01-25] VITALS (7 sets, daily range): BP systolic 93–123; BP diastolic 61–76; PULSE 43–56; RESP 16–18; TEMP 36.3–36.9; O2SAT 95–97; BMI 23.4
--- NOTE | 2023-01-25 08:47 | MHC.SHP ---
Pre-Procedural Eval Section A Date of Service: 01/25/23 The patient is an INPATIENT: No Changes since office visit: Yes Patient answered all questions; No Cold of Flu in the past 2 weeks, No New Medical Problems and No Changes in Medication The History & Physical has been completed within 30 days and I have reviewed it.: Yes Section B Chief Complaint: Unspecified lump in the right breast, unspecified Allergies: Allergies Allergy/AdvReac Type Severity Reaction Status Date / Time No Known Allergies Allergy Unverified 01/15/23 10:39 Plan Diagnosis/Plan: Unchanged I have reviewed the history and physical and performed a pertinent physical examination on my patient. No changes have occurred unless specified. Time Spent With Patient Time: Total time managing care of this patient today ____ minutes.
--- NOTE | 2023-01-25 09:54 | P.OP_ITS ---
Operative Note Operative Note Date of Service: 01/25/23 Narrative: Preoperative diagnosis: palpable mass right breast subareolar 07:00 o'clock Postoperative diagnosis: same Procedure: right breast lumpectomy Surgeon: Jong Lozano MD Surgical Instrument Technician: Destiny Osuna PA-C, JEOVANNY Guzman Anesthesia: general LMP Indications for procedure: 52-year-old female patient with a previous history of left breast DCIS now presenting with a palpable mass in the right breast as note d above. She presents for a right breast lumpectomy. Operative findings: Firm area the breast at the 7 o'clock position suggestive of a area of fibrocystic change Specimen: right breast lumpectomy Estimated blood loss: 2 mL Complications: none Procedure details: patient was brought the OR placed in a supine position. After administering general anesthesia patient's right breast was prepped with ChloraPrep and draped in a sterile fashion. A surgical time-out was called and consent confirmed. Patient received preoperative antibiotics and Venodyne boots were in place. Local anesthesia was infiltrated in curvilinear fashion at the inferior margin of the areola. Incision was then made in the same location carried out through subcutaneous tissue. Superior inferior skin flaps were then created with electrocautery. The cord tissue to include the palpable mass was then included in the specimen. The specimen was marked with a long suture on the lateral margin, short suture on the superior margin, and loop suture on the inferior margin. Lesion was sent to pathology for further examination. After assuring adequate hemostasis the wounds were irrigated with saline solution and suctioned dry. The breast tissue was then reapproximated using interrupted 3-0 Polysorb sutures. Dermis was reapproximated using interrupted 3-0 Polysorb sutures. Skin was then closed using a running subcuticular 4-0 Polysorb suture. Steri-Strips 2 x 2 gauze and Tegaderm were then applied. The patient tolerated the procedure well. Sponge, instrument, and needle counts reported as correct. The patient was transferred to PACU in stable condition.
== END 2023-01-25 11:26 | disposition home or self-care (01) ==
PROVIDERS: PCP Internal Medicine; Visit Provider Surgery
PROC: (CPT 19301; principal; 2023-01-25 09:40)
DX: N63.41 Unspecified lump in right breast, subareolar (principal); Z85.3 Personal history of malignant neoplasm of breast; N60.41 Mammary duct ectasia of right breast; N60.31 Fibrosclerosis of right breast; F32.A Depression, unspecified; F41.1 Generalized anxiety disorder; F12.90 Cannabis use, unspecified, uncomplicated; Z87.19 Personal history of other diseases of the digestive system; Z79.899 Other long term (current) drug therapy
CPT/HCPCS: 19301; 88307; J0690; J1100; J2250; J2405; J3010

== ENCOUNTER → 2023-01-25 07:54 | Outpatient (BNV) | payer OTHER, SELFPAY | PROVIDERS: PCP Internal Medicine; Visit Provider Surgery | DX: N63.10 Unspecified lump in the right breast, unspecified quadrant (principal) | CPT/HCPCS: 19301 ==

== ENCOUNTER 2023-02-04 09:35 | Outpatient (AMB) | payer OTHER, SELFPAY ==
--- NOTE | 2023-02-04 09:47 | A.OFFVIS_ITS ---
Intake Vital Signs 02/04/23 09:51 Weight 123 lb BP 115/76 Blood Pressure Location Rt brachial Position Sitting Pulse 91 Intake Visit Reasons: S/P Rt breast lumpectomy Intake Note: Patient here s/p Rt breast lumpectomy. Reports site healing well. Denies pain, discomfort, oozing. No longer taking rx pain meds. Taxation Inspector Required: No Accompanied by: Self / Same As Patient Allergies No Known Allergies Allergy (Unverified 02/04/23 09:52) Medication List - Last Reconciled 02/04/23 by Jong Lozano MD cholecalciferol (vitamin D3) (Vitamin D3) 1 cap PO DAILY fluvoxamine 3 tabs PO DAILY HPI HPI Comments History of Present Illness Details 52-year-old female patient with a prior history of DCIS of the left breast presenting today for re-evaluation of a palpable right breast mass noted on self examination. She noticed this in mid November with no significant change since then. 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 She subsequent underwent radiation therapy at [facility] (Dr. Garcia) completed on 05/10/2019. She was evaluated at Dr. Villafana and no further treatment recommended. She continues on high risk protocol with yearly mammogram and breast MRIs. An ultrasound-guided and stereotactic guided core biopsy performed on 11/09/2019 as well as a MR guided biopsy on 11/28/2019 revealed benign breast tissue with no evidence of malignancy. Diagnostic mammogram and ultrasound on 01/11/2023 revealed no mammographic or ultrasound evidence of malignancy and no changes to explain the palpable abnormality (BI-RADS 2). She underwent excision of the palpable right breast nodule located in the lower outer quadrant. This was performed on 01/25/2023. Pathology revealed benign breast tissue suggestive of gynecomastia. No malignancy or atypia was identified. She tolerated the procedure well and her wounds are healing nicely. She does report some itchiness in the skin. [facility]LY [facility] Medical History Partial obstruction of small intestine Depression Anxiety Surgical History Status post right breast lumpectomy (01/25/23) History of colonoscopy (05/2019) History of left breast biopsy (02/02/19) Hx of hysterectomy (2005) Hx of lumpectomy (02/13/19) Family History Father Mesothelioma Emphysema lung Maternal Grandmother Heart attack Paternal Aunt Aneurysm Social History Household Members: Significant Other Housing: House Alcohol intake: former Patient Tobacco Use Status: Current everyday Tobacco user Tobacco use type: Cigarette and Cigar Cigarette Packs Per Day: 1 Substance Use Type: Marijuana Current occupational status: employed Physical Exam Vital Signs: Last Vital Signs Pulse 91 02/04/23 09:51 BP 115/76 02/04/23 09:51 Const General: cooperative and no acute distress Chest Other: Incision in the right breast is clean, dry, and intact without redness or discharge. No palpable masses appreciated. No hematoma or seroma. Skin Other: Warm, dry, no rash Assessment & Plan Assessment & Plan (1) DCIS (ductal carcinoma in situ) of breast: Code(s): D05.10 - Intraductal carcinoma in situ of unspecified breast (2) Breast mass, right: Comment: 07:00 o'clock subareolar Code(s): N63.10 - Unspecified lump in the right breast, unspecified quadrant Plan Patient returns 1 week following right breast lumpectomy. She tolerated the procedure well and the pathology revealed benign breast tissue. She Was provide d a copy of the report. Six-month follow-up examination is recommended. Coding Level of Care Code Global (35671) Diagnoses DCIS (ductal carcinoma in situ) of breast D05.10 Breast mass, right N63.10
[2023-02-04 09:51] VITALS: BP 115/76; PULSE 91
== END 2023-02-04 10:17 | disposition home or self-care (01) ==
PROVIDERS: PCP Internal Medicine; Visit Provider Surgery
DX: D05.10 Intraductal carcinoma in situ of unspecified breast (principal); N63.10 Unspecified lump in the right breast, unspecified quadrant
CPT/HCPCS: 99024

== ENCOUNTER → 2023-02-04 09:35 | Outpatient (BNVA) | payer OTHER, SELFPAY | PROVIDERS: PCP Internal Medicine; Visit Provider Surgery ==

== ENCOUNTER 2023-03-04 15:30 | Outpatient (AMB) | payer OTHER, SELFPAY ==
--- NOTE | 2023-03-04 15:32 | A.OFFVIS_ITS ---
Intake Vital Signs 03/04/23 15:40 Height 5 ft 2 in Weight 121 lb BMI 22.1 BP 127/83 Blood Pressure Location Lt brachial Position Sitting Pulse 79 Intake Visit Reasons: 1 mth follow up Rt breast lumpectomy Intake Note: Patient is seen in office for one month follow up visit, post breast lumpecotmy. Patient c/o: denies any concerns at the time of visit Emanations Analysis Technician Required: No Accompanied by: Self / Same As Patient Allergies No Known Allergies Allergy (Unverified 03/04/23 15:39) Medication List - Last Reconciled 03/05/23 by Jong Lozano MD cholecalciferol (vitamin D3) (Vitamin D3) 1 cap PO DAILY fluvoxamine 3 tabs PO DAILY HPI HPI Comments History of Present Illness Details 53-year-old female patient returning 1 m ont following right breast lumpectomy for follow-up examination. She denies any ongoing breast symptoms. 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 Pathology confirmed DCIS with microinvasion, negative sentinel nodes, ER/KS negative. She underwent radiation therapy at [facility] which completed on 05/10/2019. No further medical treatment was recommended by Dr. Villafana. She continued on high risk protocol with yearly mammograms and breast MRIs. Ultrasound-guided stereotactic guided core biopsies performed on 11/09/2019 as well as an MR guided core biopsy on 11/28/2019 revealed benign breast tissue with no evidence of malignancy. Diagnostic mammogram and ultrasound on 01/11/2023 revealed no mammographic evidence of malignancy and no change to explain the palpable abnormality (BI-RADS 2). She subsequently underwent a right breast lumpectomy on 01/25/2023. Pathology revealed benign breast tissue suggestive of gynecomastia. No malignancy or atypia was identified. She does report continued episodes of abdominal pain with associated nausea and vomiting. She has limited which she is eating and feels she is losing weight. The pain is episodic with the nausea has been persistent. CT abdomen pelvis performed on 12/05/2021 revealed a question of mild colitis of left colon verses changes due to under distension. She has never been evaluated by Gastroenterology. [facility] Medical History Partial obstruction of small intestine Depression Anxiety Surgical History Status post right breast lumpectomy (01/25/23) History of colonoscopy (05/2019) History of left breast biopsy (02/02/19) Hx of hysterectomy (2005) Hx of lumpectomy (02/13/19) Family History Father Mesothelioma Emphysema lung Maternal Grandmother Heart attack Paternal Aunt Aneurysm Social History Household Members: Significant Other Housing: House Alcohol intake: former Patient Tobacco Use Status: Current everyday Tobacco user Tobacco use type: Cigarette and Cigar Cigarette Packs Per Day: 1 Substance Use Type: Marijuana Current occupational status: employed Review of Systems Const All systems reviewed & are unremarkable except as noted in HPI and below Card Reports no additional complaints Resp Reports no additional complaints GI Reports as per HPI Denies nipple discharge Skin/Breast Denies breast skin changes, Denies breast pain, Reports breast mass, Denies change in breast shape, Denies change in pigmentation and Denies nipple discharge Neuro Reports no additional complaints Physical Exam Vital Signs: Last Vital Signs Pulse 79 03/04/23 15:40 BP 127/83 03/04/23 15:40 BMI result Body Mass Index 22.1 Const General: cooperative and no acute distress Chest Other: Right breast: Well-healed incision with no redness or discharge. No new palpable mass, skin change, nipple discharge or enlarged lymph nodes. Left breast with no new palpable mass, skin change, nipple discharge, or enlarged lymph nodes. 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 ER/KS negative. She subsequently underwent radiation therapy. A recent palpable mass in the right breast revealed benign breast tissue. Examination today revealed no new suspicious findings in either breast. She is now due for her annual screening mammogram and this will be ordered in approximately 2 months. I suggested gastroenterology consultation for the persistent abdominal pain and nausea/vomiting. She will return in 6 months.. Orders: Orders MM diagnostic mammo BI 2 Months D05.10 - Intraductal carcinoma in situ of unspecified breast, Z91.89 - Other specified personal risk factors, not elsewhere classified Referrals Gastroenterology Referral R11.0 - Nausea Coding Level of Care Code Global (53214) Diagnoses Ductal carcinoma in situ (DCIS) of left breast D05.12 Laterality: left At high risk for breast cancer Z91.89
[2023-03-04 15:40] VITALS: BP 127/83; PULSE 79; BMI 22.1
== END 2023-03-04 15:47 | disposition home or self-care (01) ==
PROVIDERS: PCP Internal Medicine; Visit Provider Surgery
DX: D05.12 Intraductal carcinoma in situ of left breast (principal); Z91.89 Other specified personal risk factors, not elsewhere classified
CPT/HCPCS: 99024

== ENCOUNTER → 2023-03-04 15:30 | Outpatient (BNVA) | payer OTHER, SELFPAY | PROVIDERS: PCP Internal Medicine; Visit Provider Surgery ==

== ENCOUNTER 2023-03-24 15:29 | Outpatient (REF) | payer OTHER, SELFPAY ==
--- NOTE | ~2023-03-24 | MM_ITS ---
EXAMINATION: MM SCREENING DIGITAL BREAST TOMOSYNTHESIS, RIGHT CLINICAL INFORMATION: Screening. Asymptomatic. History of treated DCIS in 2019. COMPARISON: Mammography: This study is compared with prior exams dating back to 2019. TECHNIQUE: Digital breast tomosynthesis is performed in both the craniocaudal and mediolateral oblique views along with computer-aided detection (CAD). Synthesized 2D images are generated from the tomosynthesis. FINDINGS: There are scattered areas of fibroglandular density (ACR BI-RADS breast composition Category b). There are no significant masses, abnormal calcifications, or other abnormalities. Postsurgical, posttreatment and postbiopsy changes are present in the upper outer quadrant of the left breast. MM/MM tomosynthesis screening LT IMPRESSION: No mammographic evidence of malignancy. ASSESSMENT: BI-RADS BI-RADS 2 - Benign Findings RECOMMENDATION: Routine annual mammography screening. 1 year F/U This examination should not preclude the clinical evaluation of a suspicious palpable abnormality. This patient's information was entered into a reminder system with a target due date for their next mammogram.
== END 2023-03-24 15:30 | disposition home or self-care (01) ==
LOC: HO.MAMMO 15:29
PROVIDERS: Visit Provider Internal Medicine
DX: Z12.31 Encounter for screening mammogram for malignant neoplasm of breast (principal)
CPT/HCPCS: 77063; 77067

== ENCOUNTER → 2023-03-24 15:30 | Outpatient (BNV) | payer OTHER, SELFPAY | PROVIDERS: Visit Provider Radiology Diagnostic Radiology | DX: Z12.31 Encounter for screening mammogram for malignant neoplasm of breast (principal) | CPT/HCPCS: 77063; 77067 ==

== ENCOUNTER 2023-03-30 14:57 | Outpatient (AMB) | payer OTHER, SELFPAY ==
--- NOTE | 2023-03-30 12:04 | MHC.OFFVIS ---
Intake Vital Signs 03/30/23 15:02 Height 5 ft 2 in Weight 120 lb BMI 21.9 BP 105/71 Pulse 68 Intake Visit Reasons: Abdominal pain/nausea Intake Note: Yisel presents in the office as a new patient for abdominal pains and nausea. CC: Allergies No Known Allergies Allergy (Unverified 03/04/23 15:39) HPI HPI Comments History of Present Illness Details A 53 y/o female - partial blockage small intestine-for several years- nausea and vomiting- intermittently- - every couple weeks- last a couple days-resolves itself- Smokes marijuana daily Admitted to [facility] just over a year ago which time had a CT.-details unclear Appetite fluctuating BM- normal no issues No fever, chills, hematemesis, hematochezia Admitted 09/2021-[facility]- Dr. Lozano note-CT abdomen pelvis performed on 12/05/2021 revealed a question of mild colitis of left colon verses changes due to under distension. She has never been evaluated by Gastroenterology. [facility] Medical History (Updated 04/01/23 @ 14:30 by Mey Lara PA-C) Partial obstruction of small intestine Depression Anxiety Surgical History Status post right breast lumpectomy (01/25/23) History of colonoscopy (05/2019) History of left breast biopsy (02/02/19) Hx of hysterectomy (2005) Hx of lumpectomy (02/13/19) Family History Father Mesothelioma Emphysema lung Maternal Grandmother Heart attack Paternal Aunt Aneurysm Social History Household Members: Significant Other Housing: House Alcohol intake: former Patient Tobacco Use Status: Current everyday Tobacco user Tobacco use type: Cigarette and Cigar Cigarette Packs Per Day: 1 Substance Use Type: Marijuana Current occupational status: employed Review of Systems Const All systems reviewed & are unremarkable except as noted in HPI and below Card Denies chest pain and Denies dyspnea Resp Denies dyspnea GI Reports abdominal pain (epigastric - vague), Denies bloating, Denies hematochezia, Reports change in bowel habits, Denies dyspepsia, Denies heartburn, Reports nausea and Reports vomiting Psych Reports anxiety, Reports depression, Denies homicidal ideation and Denies suicidal ideation Physical Exam Vital Signs: Last Vital Signs Pulse 68 03/30/23 15:02 BP 105/71 03/30/23 15:02 BMI result Body Mass Index 21.9 Const General: comfortable, no acute distress, intoxicated appearing (?) and tired appearing Orientation/consciousness: patient oriented x3 Eyes Sclerae: sclerae normal Resp Effort & Inspection: normal respiratory effort and able to speak in complete sentences Auscultation: clear to auscultation bilaterally, no rales, no rhonchi and no wheezes Cardio Rate: regular rate Rhythm: regular rhythm Heart sounds: S1 normal heart sound present and S2 normal heart sound present GI Palpation (GI): Soft to palpation and nontender Auscultation: normal bowel sounds Skin General skin exam: no rashes or lesions noted Neuro General: patient oriented x3 Extrem General: Yes full ROM Psych Speech and movement: Clear speech present Affect: Labile affect present Attitude: cooperative Thought content: Normal thought content present Results Reviewed Results Reviewed: CT/CT abdomen pelvis wo con IMPRESSION: Question mild colitis of the left colon versus changes due to underdistention. Otherwise unremarkable exam. The appendix is normal appearing. Fleischner guidelines were followed. 05/2019- Hernandez- colon- hyperplastic Assessment & Plan Assessment & Plan (1) Nausea: Comment: Intermittent Code(s): R11.0 - Nausea (2) Hx of small bowel obstruction: Comment: Reviewed CT from 2021 Lab rates on history, not focus Code(s): Z87.19 - Personal history of other diseases of the digestive system Plan: Asymptomatic today Medications: New pantoprazole 20 mg PO QAM 30 tabs 6RF Patient Instructions: 53-year-old female referred for 2nd opinion for his history of SBO intermittent nausea vomiting abdominal pain Somewhat difficult to assess symptoms/overlap x 2 years= hold off on labs Will begin pantoprazole 20 mg Will follow-up with MD available for consult She agrees with the plan Major barriers to understanding identify Encouraged to call questions or concerns Coding Level of Care Code Est Pt Level 4 (96525) Diagnoses Nausea R11.0 Hx of small bowel obstruction Z87.19 Time Spent (min) 30
[2023-03-30 15:02] VITALS: BP 105/71; PULSE 68; BMI 21.9
== END 2023-03-30 15:37 | disposition home or self-care (01) ==
PROVIDERS: PCP Internal Medicine; Visit Provider Physician Assistant
DX: R11.0 Nausea (principal); Z87.19 Personal history of other diseases of the digestive system
CPT/HCPCS: 99214

== ENCOUNTER → 2023-03-30 14:57 | Outpatient (BNVA) | payer OTHER, SELFPAY | PROVIDERS: PCP Internal Medicine; Visit Provider Physician Assistant ==

== ENCOUNTER 2023-05-07 08:49 | Outpatient (AMB) | payer OTHER, SELFPAY ==
--- NOTE | 2023-05-07 08:54 | A.OFFVIS_ITS ---
Intake Vital Signs 05/07/23 08:55 Height 5 ft 2 in Weight 125 lb BMI 22.9 BP 124/77 Blood Pressure Location Lt brachial Position Sitting Pulse 82 Intake Visit Reasons: reanna pt, r/s from 04/19 Intake Note: Yisel presents in the office today as a second opinion from Reanna. CC: She states that today she is okay but she is still having ongoing N/V with diarrhea. Data Integration Analyst Required: No Allergies No Known Allergies Allergy (Unverified 05/07/23 08:55) HPI reanna pt, r/s from 04/19 HPI Details 53 yr old f ex alcoholic with hx of SBO who I am seeing for symptoms She has issues with nausea, vomiting pain like a band upper abdomen episodes can last 2-4 days and going on for 10 years or so she waits it out, doesn;t take any meds when gets these attacks no worsening or obvious exacerbating factors no bloating or distention wants to make her stay still she has been alcohol free for 11 yrs now smokes THC daily, few hits daily, using for 7 years or so denies palpitations has been taking PPI unsure if works CT: --no acute findings, ?lef tsided colitis last colo 2019-- tortuous colon, hyperplastic polyp EXAM: GENERAL: The patient is well developed and nontoxic. VITAL SIGNS:see workflow HEENT: Nonicteric sclerae, PERRLA, EOMI. Oropharynx clear. Moist mucous membranes. Conjunctivae appear well perfused. No thyroid mass. CHEST: Chest wall is nontender. HEART: Regular rate and rhythm without murmurs. LUNGS: Clear to auscultation bilaterally. ABDOMEN: Soft, positive bowel sounds, tender epigastrium, no organomegaly.no flank tenderness SKIN: No rash, no excessive bruising, petechiae, or purpura. NEUROLOGIC: Cranial nerves II-XII intact without motor/sensory deficit. a/P: 1/ Nausea, vomiting, episodic pain ddx: cannabis Hyperemsis vomiting syndrome, CVS, gastroparesis, hormonal e.g phaeo, IBD, enteropathy, food allergies, PLAN: 1/ EGD for assessment, maybe GES if neg 2/ see if can stop THC for [address] [facility] 3/ trial of levsin for pain prn 4/ might consider rast testing, phaeo w/ u pending above [facility] Medical History Partial obstruction of small intestine Depression Anxiety Surgical History Status post right breast lumpectomy (01/25/23) History of colonoscopy (05/2019) History of left breast biopsy (02/02/19) Hx of hysterectomy (2005) Hx of lumpectomy (02/13/19) Family History Father Mesothelioma Emphysema lung Maternal Grandmother Heart attack Paternal Aunt Aneurysm Social History Household Members: Significant Other Housing: House Alcohol intake: former Patient Tobacco Use Status: Current everyday Tobacco user Tobacco use type: Cigarette and Cigar Cigarette Packs Per Day: 1 Substance Use Type: Marijuana Current occupational status: employed Physical Exam Vital Signs: Last Vital Signs Pulse 82 05/07/23 08:55 BP 124/77 05/07/23 08:55 BMI result Body Mass Index 22.9 Assessment & Plan Assessment & Plan (1) Epigastric abdominal pain: Code(s): R10.13 - Epigastric pain Plan: PLAN: 1/ EGD for assessment, maybe GES if neg 2/ see if can stop THC for 3 months at least 3/ trial of levsin for pain prn 4/ might consider rast testing, phaeo w/u pending above Medications: New hyoscyamine sulfate 0.125 mg PO QID 30 tabs 0RF Coding Level of Care Code Est Pt Level 4 (92033) Diagnoses Epigastric abdominal pain R10.13
[2023-05-07 08:55] VITALS: BP 124/77; PULSE 82; BMI 22.9
== END 2023-05-07 09:31 | disposition home or self-care (01) ==
PROVIDERS: PCP Internal Medicine; Visit Provider Internal Medicine Gastroenterology
DX: R10.13 Epigastric pain (principal)
CPT/HCPCS: 99214

== ENCOUNTER → 2023-05-07 08:49 | Outpatient (BNVA) | payer OTHER, SELFPAY | PROVIDERS: PCP Internal Medicine; Visit Provider Internal Medicine Gastroenterology ==

== ENCOUNTER 2023-08-12 10:37 | Day surgery (SDC) | payer BC, SELFPAY ==
--- NOTE | 2023-08-12 10:17 | MHC.SHP ---
Pre-Procedural Eval Section A - 24 Hr Update-Section A only Date of Service: 08/12/23 Section B - Complete if H&P > 30 days Chief Complaint: Epigastric pain Relevant Family History (Specify if Yes): No Relevant Social History: Tobacco Use Present Medications: see Short Stay Collaborative assessment Medical History: Significant History ( Partial obstruction of small intestine Depression Anxiety) History of Previous Operations: Relevant previous surgery/procedure and date(s) (Status post right breast lumpectomy (01/25/23) History of colonoscopy (05/2019) History of left breast biopsy (02/02/19) Hx of hysterectomy (2005) Hx of lumpectomy (02/13/19)) Allergies: Allergies Allergy/AdvReac Type Severity Reaction Status Date / Time No Known Allergies Allergy Unverified 05/07/23 08:55 Review of Systems Sugical H&P ROS: Negative: Constitution, Cardiovascular, Respiratory, Neurological, Psychiatric, Hem-Onc, Allergic/Immunologic, Gastrointestinal, Genitourinary, Musculoskeletal, Integumentary, Endocrine and Eyes/Ears/Nose/Throat Exam Surgical H&P Exam: Normal: HEENT, Normal: Heart, Normal: Lungs, Normal: Extremities, Normal: Abdomen, Normal: Skin and Normal: Neurological Plan Diagnosis/Plan: Unchanged I have reviewed the history and physical and performed a pertinent physical examination on my patient. No changes have occurred unless specified. Time Spent With Patient Time: Total time managing care of this patient today ____ minutes.
--- NOTE | 2023-08-12 10:46 | HO.ANESPROP2 ---
HPI - Anesthesia Eval Consult details Narrative: 53 yo female patient for EGD PMFSH Active Problems Active Problems: All Active Problems (Updated 08/12/23 @ 11:03 by Estephania Pagan MD) Epigastric abdominal pain (Acute) Hx of small bowel obstruction (Acute) Nausea (Acute) Breast mass, right (Acute) Right lower quadrant abdominal pain (Acute) At high risk for breast cancer (Acute) DCIS (ductal carcinoma in situ) of breast (Chronic) Marijuana use- alst yesterday Smoker-cigars. Last this morning Past Medical History Medical History Partial obstruction of small intestine Depression Anxiety Family History Family History Father Mesothelioma Emphysema lung Maternal Grandmother Heart attack Paternal Aunt Aneurysm Family history of problems with anesthesia: No Surgical History Surgical History Status post right breast lumpectomy (01/25/23) History of colonoscopy (05/2019) History of left breast biopsy (02/02/19) Hx of hysterectomy (2005) Hx of lumpectomy (02/13/19) History of Problems with Anesthesia: No Social History Social History Household Members: Significant Other Housing: House Alcohol intake: former Patient Tobacco Use Status: Current everyday Tobacco user Tobacco use type: Cigar Cigarette Packs Per Day: 1 Cigarettes Per Day: 2 Substance Use Type: Marijuana Current occupational status: employed Meds Allergies Allergy/AdvReac Type Severity Reaction Status Date / Time No Known Allergies Allergy Unverified 05/07/23 08:55 Home Medications Medication Instructions Recorded Confirmed Last Taken Type cholecalciferol (vitamin D3) 25 1 cap PO DAILY 06/28/20 08/12/23 Unknown History mcg (1,000 unit) capsule (Vitamin D3) fluvoxamine 50 mg tablet 3 tab PO DAILY 06/28/20 08/12/23 Unknown History Exam Height,Weight and Vital Signs: Height 5 ft 2 in Weight 57.969 kg Vital Signs Temp Pulse Resp BP Pulse Ox O2 Del Method 08/12/23 10:58 98.6 F 86 18 109/78 95 Room Air Airway Mallampati Class: III (Small mouth. Protruding top tooth) TM Dist: >3cm Neck ROM: Full Partial: Upper Loose/Missing/Broken Teeth: Yes (Partial top. Some missing teeth bottom. Denies loose teeth) Heart: RRR Lungs: CTAB. Diminished Assessment and Plan Assessment Anesthesia Assessment: Anesthesia Plan Discussed and Chart Reviewed Final Anesthetic Review Family History of Problems with Anesthesia: No History of Problems with Anesthesia: No NPO: Yes ASA Class: II Final Preanesthetic Review: No Changes in Pt Med Stat, Meds/Allgs Chart Reviewed, Consent Obtained/Reviewed and Anes Risks/Benef Reviewed Patient Risk: Low Procedure Risk: Low Assessment/Block/Sedation in SS: Assess/Block/Sedation-SS Anesthetic Plan Anesthetic Plan: MAC: and TIVA Disposition: Standard PACU
[2023-08-12 10:58] VITALS: BP 109/78; PULSE 86; RESP 18; TEMP 37; O2SAT 95; BMI 23.4
[2023-08-12] MEDS: Lactated Ringers 1,000 ML 100 ML IVCONT (11:18)
--- NOTE | 2023-08-12 11:38 | W.PM.OPN ---
Operative Note Operative Note Date of Service: 08/12/23 Narrative: Procedure Description: EGD Indication: epigastric pain Anesthesia: MAC FLEXIBLE TRANSORAL UPPER GASTROINTESTINAL ENDOSCOPY UPPER ENDOSCOPY Consent: Indications for the procedure and potential complications of bleeding, perforation, reaction to medications and missed diagnosis were discussed with the patient and informed consent was obtained. Instrument: Olympus GIF H 190 J mid size upper endoscope Monitoring: Vital signs and clinical assessment, continuous EKG monitoring, Pulse oximetry, Carbon Dioxide monitoring and blood pressure monitoring were done throughout the procedure. Procedure: The patient was placed in the left lateral decubitis position and pre-procedure medications were administered and a bite block was placed. The endoscope was inserted into the mouth and advanced under direct vision to the third part of duodenum. A careful inspection was made as the upper endoscope was withdrawn including a retroflexed examination of the proximal stomach; Findings and interventions are described below. Findings: Larynx:normal Esophagus: GE junction at 36 cm, diaphragm hiatus at 38 cm, consistent with 2 cm sliding hiatal hernia, schatzki ring noted with esophagitis, bx taken from GEJ, distal and proximal esophagus Stomach: patchy erythema and granular mucosa . Biopsies were obtained. Grade 3 flap valve on retroflexed examination of the cardia with patulous LES Duodenum: bulbar duodenitis Intervention: Biopsies as noted above, Impression/Findings: gastritis duodenitis esophagitis patulous GEJ schatzki ring hiatal hernia PLAN: GERD precautions smoking cessation PPI if H pylori pos then treat
[2023-08-12 12:27] VITALS: BP 102/71; PULSE 68; RESP 16; TEMP 36.3; O2SAT 94
[2023-08-12 12:42] VITALS: BP 109/69; PULSE 63; RESP 16; O2SAT 96
[2023-08-12 12:57] VITALS: BP 111/72; PULSE 64; RESP 16; TEMP 36.3; O2SAT 97
== END 2023-08-12 13:45 | disposition home or self-care (01) ==
PROVIDERS: PCP Internal Medicine; Visit Provider Internal Medicine Gastroenterology
PROC: 0DJ08ZZ Inspection of Upper Intestinal Tract, Via Natural or Artificial Opening Endoscopic (ICD-10-PCS; CPT 43235; principal; 2023-08-12 13:10)
DX: K29.50 Unspecified chronic gastritis without bleeding (principal); K29.80 Duodenitis without bleeding; K20.80 Other esophagitis without bleeding; K22.2 Esophageal obstruction; K22.4 Dyskinesia of esophagus; K44.9 Diaphragmatic hernia without obstruction or gangrene; F17.290 Nicotine dependence, other tobacco product, uncomplicated; F17.210 Nicotine dependence, cigarettes, uncomplicated; F32.A Depression, unspecified; F41.9 Anxiety disorder, unspecified; Z98.890 Other specified postprocedural states
CPT/HCPCS: 43239; 88305; 88313; 88342; J1596; J2250; J2704

== ENCOUNTER → 2023-08-12 10:37 | Outpatient (BNV) | payer BC, SELFPAY | PROVIDERS: PCP Internal Medicine; Visit Provider Internal Medicine Gastroenterology | DX: K22.2 Esophageal obstruction (principal); K20.90 Esophagitis, unspecified without bleeding; K29.80 Duodenitis without bleeding; K22.89 Other specified disease of esophagus | CPT/HCPCS: 43239 ==

== ENCOUNTER 2023-09-10 09:15 | Outpatient (AMB) | payer BC, SELFPAY ==
--- NOTE | 2023-09-10 09:22 | A.OFFVIS_ITS ---
Intake Vital Signs 09/10/23 09:26 Weight 128 lb 11.999 oz BP 112/66 Blood Pressure Location Rt brachial Position Sitting Pulse 62 Intake Visit Reasons: 4 month follow up Intake Note: Patient here s/p endoscopy with Dr. Herrera on 08-12-23. Patient c/o: on and off abd pain, nausea. 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 HERRERA 05/07/2023 PLAN: 1/ EGD for assessment, maybe GES if neg 2/ see if can stop THC for 3 months at [facility] 3/ trial of levsin for pain prn 4/ might consider rast testing, phaeo w/ u pending above UPPER ENDOSCOPY 08/12/2023 Dr. Herrera Findings: Larynx:normal Esophagus: GE junction at 36 cm, diaphragm hiatus at 38 cm, consistent with 2 cm sliding hiatal hernia, schatzki ring noted with esophagitis, bx taken from GEJ, distal and proximal esophagus Stomach: patchy erythema and granular mucosa . Biopsies were obtained. Grade 3 flap valve on retroflexed examination of the cardia with patulous LES Duodenum: bulbar duodenitis Intervention: Biopsies as noted above, Impression/Findings: gastritis duodenitis esophagitis patulous GEJ schatzki ring hiatal hernia PLAN: GERD precautions smoking cessation PPI if H pylori pos then treat PATHOLOGY RESULTS Diagnosis A. Duodenum, biopsy: Chronic inactive duodenitis. B. Stomach, biopsy: Antral-type and oxyntic mucosa with mild chronic inactive inflammation; no Helicobacter organisms seen. C. 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 - No dysplasia seen. - Squamous epithelium within normal limi ts. D. Esophagus, distal, biopsy: - Active esophagitis (few neutrophils an d eosinophils). - Detached fragments of intestinalized e pithelium, consistent with Bales esophagus. E. Esophagus, proximal, biopsy: Squamous epithelium within normal limits; no inflammation seen TODAY'S VISIT Patient is here today for follow-up. Patient reports that she has been feeling better. Started taking pantoprazole every morning and her symptoms of epigastric pain and discomfort have subsided. Patient continues to smoke cig arettes. Currently is on pantoprazole 40 mg daily. Patient denies any abdominal pain or discomfort. Reports to have good appetite. No longer has symptoms of trouble swallowing. As mentioned above patient had upper endoscopy, Schatzki ring with esophagitis found. Biopsy show Barretts and crack neck inflammation as well as esophagitis. Patient denies any nausea or vomiting. 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 Patient reports that she is trying to eat better. Avoiding dietary triggers. Patient reports that she has not experienced pain like that for few weeks. Patient denies eating late at night. Denies melena, hematochezia, unintentional weight loss or ribbon like stools. [facility] Medical History (Updated 09/10/23 @ 19:31 by Sara Person [facility]) Duodenitis Hiatal hernia Schatzki's ring Gastritis Partial obstruction of small intestine Depression Anxiety Surgical History Status post right breast lumpectomy (01/25/23) History of colonoscopy (05/2019) History of left breast biopsy (02/02/19) Hx of hysterectomy (2005) Hx of lumpectomy (02/13/19) Family History Father Mesothelioma Emphysema lung Maternal Grandmother Heart attack Paternal Aunt Aneurysm Social History Household Members: Significant Other Housing: House Alcohol intake: former Patient Tobacco Use Status: Current everyday Tobacco user Tobacco use type: Cigar Cigarette Packs Per Day: 1 Cigarettes Per Day: 2 Substance Use Type: Marijuana Current occupational status: employed Review of Systems Const Denies weight gain and Denies weight loss ENT Reports no additional complaints, Denies dysphagia and Denies odynophagia Card Reports no additional complaints Resp Reports no additional complaints GI Denies abdominal pain, Denies belching, Denies melena, Denies bloating, Denies change in bowel habits, Denies dysphagia, Denies excessive flatus, Denies dyspepsia, Denies heartburn, Denies diarrhea, Denies loose stools, Denies nausea, Denies odynophagia and Denies vomiting Musc Reports no additional complaints Neuro Reports no additional complaints Psych Reports no additional complaints Endo Reports no additional complaints Physical Exam Vital Signs: Last Vital Signs Pulse 62 09/10/23 09:26 BP 112/66 09/10/23 09:26 Const General: healthy appearing, no acute distress and well developed Nutritional Appearance: well nourished Orientation/consciousness: patient oriented x3 Resp Effort & Inspection: normal respiratory effort, able to speak in complete sentences, no tracheal deviation and symmetric chest movement Auscultation: clear to auscultation bilaterally Cardio Rate: regular rate GI Inspection: Yes normal to inspection and No distended Palpation (GI): Soft to palpation, not firm, nontender and No hepatosplenomegaly present Auscultation: normal bowel sounds General: Yes no CVA tenderness Back/Spine/Pelvis Back: no CVA tenderness Skin General skin exam: elasticity normal, turgor normal and dry skin Neuro General: patient oriented x3 Psych Appearance: grossly normal Mental Status: mental status grossly normal Assessment & Plan Assessment & Plan (1) Hx of small bowel obstruction: Comment: Reviewed CT from 2021 Lab rates on history, not focus Code(s): Z87.19 - Personal history of other diseases of the digestive system (2) Epigastric abdominal pain: Code(s): R10.13 - Epigastric pain (3) Gastritis: Code(s): K29.70 - Gastritis, unspecified, without bleeding Qualifiers: Gastritis type: superficial Chronicity: chronic Gastritis bleeding: without bleeding Qualified Code(s): K29.30 - Chronic superficial gastritis without bleeding (4) Schatzki's ring: Code(s): K22.2 - Esophageal obstruction (5) Hiatal hernia: Code(s): K44.9 - Diaphragmatic hernia without obstruction or gangrene (6) Duodenitis: Code(s): K29.80 - Duodenitis without bleeding (7) Esophagitis: Code(s): K20.90 - Esophagitis, unspecified without bleeding Plan Patient will continue pantoprazole. Avoid dietary triggers and late night snacking. Avoid smoking. Patient can take famotidine on as needed basis at bedtime. Patient was encouraged to avoid dietary triggers and late night snacking. Staying upright for minimum 3 hours after meals discussed with patient. Patient will be sent for enterography. History of colitis in 2021, patient had small-bowel obstruction most likely related to adhesions. Patient has history of hysterectomy in the past. Patient reports that she is moving her bowels without any issues. Increase fluid intake and activity to promote better bowel motility. I will see her in 8 months, sooner on as needed basis. She is agreeable to this plan and verbalizes understanding of instructions. She was given the opportunity to ask questions and all questions answered. Thank you for allowing me to participate in her care Orders: Orders Creatinine Today R10.11 - Right upper quadrant pain CT enterography Today R10.13 - Epigastric pain, Z87.19 - Personal history of other diseases of the digestive system Blood Urea Nitrogen Today R10.11 - Right upper quadrant pain Medications: New famotidine (Pepcid) 20 mg PO BEDTIME 30 tabs 3RF K21.9 - Gastro-esophageal reflux disease without esophagitis Coding Level of Care Code Est Pt Level 4 (42362) Diagnoses Hx of small bowel obstruction Z87.19 Epigastric abdominal pain R10.13 Chronic superficial gastritis without bleeding K29.30 Gastritis type: superficial Chronicity: chronic Gastritis bleeding: without bleeding Schatzki's ring K22.2 Hiatal hernia K44.9 Duodenitis K29.80 Esophagitis K20.90 Time Spent (min) 40 Comment 25 minutes spent with patient and additional 15 minutes spent reviewing her records
[2023-09-10 09:26] VITALS: BP 112/66; PULSE 62
== END 2023-09-10 09:59 | disposition home or self-care (01) ==
PROVIDERS: PCP Internal Medicine; Visit Provider Nurse Practitioner Family
DX: Z87.19 Personal history of other diseases of the digestive system (principal); R10.13 Epigastric pain; K29.30 Chronic superficial gastritis without bleeding; K22.2 Esophageal obstruction; K44.9 Diaphragmatic hernia without obstruction or gangrene; K29.80 Duodenitis without bleeding; K20.90 Esophagitis, unspecified without bleeding
CPT/HCPCS: 99214

== ENCOUNTER → 2023-09-10 09:15 | Outpatient (BNVA) | payer BC, SELFPAY | PROVIDERS: PCP Internal Medicine; Visit Provider Nurse Practitioner Family ==

== ENCOUNTER 2023-10-07 15:03 | Outpatient (AMB) | payer BC, SELFPAY ==
--- NOTE | 2023-10-07 15:28 | A.OFFVIS_ITS ---
Vital Signs 10/07/23 15:33 Weight 123 lb BP 103/69 Blood Pressure Location Rt brachial Position Sitting Pulse 73 Intake Visit Reasons: 6 month breast exam Intake Note: Patient is seen in office for 6 month follow up visit, breast exam. Patient c/o: reports no breast complaints at this time. 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 She denies any ongoing breast symptoms. 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 Path ology confirmed DCIS with microinvasion, negative sentinel nodes, ER/NJ negative. She underwent radiation therapy at [facility] which completed on 05/10/2019. No further medical treatment was recommended by Dr. Villafana. She continued on high risk protocol with yearly mammograms and breast MRIs. Ultrasound-guided stereotactic guided core biopsies performed on 11/09/2019 as well as an MR guided core biopsy on 11/28/2019 revealed benign breast tissue with no evidence of malignancy. Diagnostic mammogram and ultrasound on 01/11/2023 revealed no mammographic evidence of malignancy and no change to explain the palpable abnormality (BI-RADS 2). She subsequently underwent a right breast lumpectomy on 01/25/2023. Pathology revealed benign breast tissue suggestive of gynecomastia. No malignancy or atypia was identified. [facility] Medical History Duodenitis Hiatal hernia Schatzki's ring Gastritis Partial obstruction of small intestine Depression Anxiety Surgical History Status post right breast lumpectomy (01/25/23) History of colonoscopy (05/2019) History of left breast biopsy (02/02/19) Hx of hysterectomy (2005) Hx of lumpectomy (02/13/19) Family History Father Mesothelioma Emphysema lung Maternal Grandmother Heart attack Paternal Aunt Aneurysm Social History Household Members: Significant Other Housing: House Alcohol intake: former Patient Tobacco Use Status: Current everyday Tobacco user Tobacco use type: Cigar Cigarette Packs Per Day: 1 Cigarettes Per Day: 2 Substance Use Type: Marijuana Current occupational status: employed Review of Systems Const All systems reviewed & are unremarkable except as noted in HPI and below Physical Exam Vital Signs: Last Vital Signs Pulse 73 10/07/23 15:33 BP 103/69 10/07/23 15:33 Const General: cooperative and no acute distress Chest Other: Right breast: Well-healed incision with no redness or discharge. No new palpable mass, skin change, nipple discharge or enlarged lymph nodes. Left breast with no new palpable mass, skin change, nipple discharge, or enlarged lymph nodes. GI Inspection: Yes normal to inspection Palpation (GI): Soft to palpation, nontender, no guarding and not rigid Skin Other: Warm, dry, no rash Assessment & Plan Assessment & Plan (1) DCIS (ductal carcinoma in situ) of breast: Code(s): D05.10 - Intraductal carcinoma in situ of unspecified breast Category: Medical Qualifiers: Laterality: left Qualified Code(s): D05.12 - Intraductal carcinoma in situ of left breast (2) At high risk for breast cancer: Code(s): Z91.89 - Other specified personal risk factors, not elsewhere classified Category: Medical Plan 53-year-old female patient with a prior history of ductal carcinoma in-situ with microinvasion status post lumpectomy and sentinel node biopsy. ER/NJ negative. She subsequently underwent radiation therapy. A recent palpable mass in the right breast revealed benign breast tissue. Examination today revealed no new suspicious findings in either breast. She has orders for follow-up mammogram and MRI and should follow up in 6 months for routine breast examination. She is welcome to call sooner for any new concerns. Coding Level of Care Code Est Pt Level 3 (43030) Diagnoses Ductal carcinoma in situ (DCIS) of left breast D05.12 Laterality: left At high risk for breast cancer Z91.89
[2023-10-07 15:33] VITALS: BP 103/69; PULSE 73
== END 2023-10-07 15:53 | disposition home or self-care (01) ==
PROVIDERS: PCP Internal Medicine; Visit Provider Surgery
DX: D05.12 Intraductal carcinoma in situ of left breast (principal); Z91.89 Other specified personal risk factors, not elsewhere classified
CPT/HCPCS: 99213

== ENCOUNTER → 2023-10-07 15:03 | Outpatient (BNVA) | payer BC, SELFPAY | PROVIDERS: PCP Internal Medicine; Visit Provider Surgery ==

== ENCOUNTER 2023-11-02 06:35 | Outpatient (REF) | payer BC, SELFPAY ==
[2023-11-02 08:42] LABS: Blood Urea Nitrogen 10 mg/dL (9-16); Estimated Glomerular Filt Rate > 60
== END 2023-11-02 06:36 | disposition home or self-care (01) ==
LOC: HO.LAB 06:35
PROVIDERS: PCP Internal Medicine; Visit Provider Nurse Practitioner Family
DX: R10.11 Right upper quadrant pain (principal)
CPT/HCPCS: 36415; 82565; 84520

== ENCOUNTER 2023-11-04 15:01 | Outpatient (REF) | payer BC, SELFPAY ==
--- NOTE | ~2023-11-04 | CT_ITS ---
EXAMINATION: CT ENTEROGRAPHY ABDOMEN AND PELVIS WITH CONTRAST CLINICAL INFORMATION: Epigastric pain COMPARISON: 12/05/2021 TECHNIQUE: Study performed with oral VoLumen (1350 mL) and 480 mL of water to distend the abdomen. The patient was injected with 85 mL Omnipaque 350 intravenous contrast which was administered without adverse effect. Coronal and sagittal reformatted images were obtained at the technologist's workstation. This CT examination was performed using dose optimization techniques as appropriate, variously including the following: *Automated exposure control *Adjustment of mA and/or kV according to patient size (this includes techniques or standardized protocols for targeted exams where dose is matched to indication/reason for exam; i.e. extremities or head) *Use of iterative reconstruction technique DLP: 286 mGy-cm FINDINGS: GASTROINTESTINAL FINDINGS: Stomach: Well-distended and normal in appearance. Small intestine: Satisfactorily distended and normal in appearance. Large intestine: Well-distended and normal in appearance. No perirectal changes demonstrated. The appendix is normal. Additional findings: No abnormal enhancement of the vasa recta or significant mesenteric or retroperitoneal lymphadenopathy is seen. No abdominal abscess or fistulous tract demonstrated. ABDOMINAL AND PELVIC CT FINDINGS: Liver, gallbladder, biliary tract: The liver is homogeneous without masses or ductal. The gallbladder is well distended without stones. Pancreas: Unremarkable Spleen: Not enlarged Adrenal glands and kidneys: Both adrenal glands are unremarkable without nodularity. Kidneys demonstrate symmetrical attenuation in no hydroureteronephrosis, nephrolithiasis, cysts or masses. Ureters and bladder: Ureters are normal. Urinary bladder well distended without stones or masses. Lymphovascular structures: There is no aortic aneurysmal dilatation. No lymphadenopathy is seen. Bones: Unremarkable Lung bases: Normal CT/CT enterography IMPRESSION: Unremarkable examination.
[2023-11-04] MEDS: iohexoL 350 MG/ML 100 ML INFUS..BTL 85 ML IV (16:29)
== END 2023-11-04 15:02 | disposition home or self-care (01) ==
LOC: HO.CT 15:01
PROVIDERS: PCP Internal Medicine; Visit Provider Nurse Practitioner Family
DX: R10.13 Epigastric pain (principal); Z87.19 Personal history of other diseases of the digestive system
CPT/HCPCS: 74177; Q9967

== ENCOUNTER 2024-04-06 15:27 | Outpatient (AMB) | payer BC, SELFPAY ==
--- NOTE | 2024-04-06 15:28 | A.OFFVIS_ITS ---
Vital Signs 04/06/24 15:35 Height 5 ft 2 in Weight 119 lb 8 oz BMI 21.9 BP 120/68 Blood Pressure Location Lt brachial Position Sitting Pulse 78 Intake Visit Reasons: 6 month breast exam Intake Note: Patient is seen in office for 6 month follow up visit, breast exam. 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 She noted a lump in the left breast in 01/17/2019 and mild mammography revealed suspicious coarse calcifications in the upper outer quadrant an ultrasound revealed a suspicious density measuring 1.8 x 1.3 cm corresponding to the palpable mass. Subsequent ultrasound-guided core biopsy on 02/02/2019 revealed DCIS, high nuclear grade solid type with comedonecrosis and microcalcifications. One area was suspicious for microinvasion, ER/CO negative. She subsequently underwent a left breast lumpectomy with sentinel node biopsy on 02/13/2019. Margins were negative for DCIS. Three sentinel nodes were negative for metastatic disease. (pT1 [place], pN0). HER2 was positive. She underwent radiation therapy at [facility] which was completed in 05/19/2019. She underwent several biopsies in the both the left and right breast all of which were benign. Her last mammogram of 03/24/2023 revealed no mammographic evidence of malignancy (BI-RADS 2). [facility], [facility] Medical History Duodenitis Hiatal hernia Schatzki's ring Gastritis Partial obstruction of small intestine Depression Anxiety Surgical History Status post right breast lumpectomy (01/25/23) History of colonoscopy (05/2019) History of left breast biopsy (02/02/19) Hx of hysterectomy (2005) Hx of lumpectomy (02/13/19) Family History Father Mesothelioma Emphysema lung Maternal Grandmother Heart attack Paternal Aunt Aneurysm Social History Household Members: Significant Other Housing: House Alcohol intake: former Patient Tobacco Use Status: Current everyday Tobacco user Tobacco use type: Cigar Cigarette Packs Per Day: 1 Substance Use Type: Marijuana Current occupational status: employed Review of Systems Const All systems reviewed & are unremarkable except as noted in HPI and below Physical Exam Vital Signs: Last Vital Signs Pulse 78 04/06/24 15:35 BP 120/68 04/06/24 15:35 BMI result Body Mass Index 21.9 Const General: cooperative and no acute distress Chest Other: Right breast: Well-healed incision with no redness or discharge. No new palpable mass, skin change, nipple discharge or enlarged lymph nodes. Left breast with no new palpable mass, skin change, nipple discharge, or enlarged lymph nodes. GI Inspection: Yes normal to inspection Palpation (GI): Soft to palpation, nontender, no guarding and not rigid Skin Other: Warm, dry, no rash Assessment & Plan Assessment & Plan (1) DCIS (ductal carcinoma in situ) of breast: Code(s): D05.10 - Intraductal carcinoma in situ of unspecified breast Category: Medical Qualifiers: Laterality: left Qualified Code(s): D05.12 - Intraductal carcinoma in situ of left breast (2) At high risk for breast cancer: Code(s): Z91.89 - Other specified personal risk factors, not elsewhere classified Category: Medical Plan 54-year-old female patient with a prior history of ductal carcinoma in-situ with microinvasion status post lumpectomy and sentinel node biopsy. ER/CO negative. She subsequently underwent radiation therapy. Exam today reveals no suspicious findings in either breast. There is some scar tissue in the upper outer quadrant of the left breast but no other suspicious findings. She is due for her annual mammogram which will be ordered today. I recommended follow-up examination in 6 months. Orders: Orders MM diagnostic mammo BI Today D05.12 - Intraductal carcinoma in situ of left breast Coding Level of Care Code Est Pt Level 3 (87862) Complex EM visit Add On G2211 Diagnoses Ductal carcinoma in situ (DCIS) of left breast D05.12 Laterality: left At high risk for breast cancer Z91.89
[2024-04-06 15:35] VITALS: BP 120/68; PULSE 78; BMI 21.9
== END 2024-04-06 15:46 | disposition home or self-care (01) ==
LOC: HO.HGS 15:28
PROVIDERS: PCP Internal Medicine; Visit Provider Surgery
DX: D05.12 Intraductal carcinoma in situ of left breast (principal); Z91.89 Other specified personal risk factors, not elsewhere classified
CPT/HCPCS: 99213

== ENCOUNTER → 2024-04-06 15:27 | Outpatient (BNVA) | payer BC, SELFPAY | PROVIDERS: PCP Internal Medicine; Visit Provider Surgery ==

== ENCOUNTER 2024-05-05 15:31 | Outpatient (AMB) | payer BC, SELFPAY ==
[2024-05-05 15:40] VITALS: BP 142/80; PULSE 74; O2SAT 100; BMI 22.3
--- NOTE | 2024-05-05 15:40 | MHC.OFFVIS ---
Vital Signs 05/05/24 15:40 Height 5 ft 2 in Weight 121 lb 11.123 oz BMI 22.3 BP 142/80 H Blood Pressure Location Rt brachial Position Sitting Pulse 74 Pulse Source Pulse Oximeter Pulse Oximetry (%) 100 Oxygen Delivery Method Room Air Intake Visit Reasons: 8 month follow up Intake Note: Yisel presents in office today for a scheduled 8 mos FUV. CC; Any changes or new sx since last visit? No significant changes or new concerns. Still following FODMAP. Any labs or diagnostics since last visit? ?Imaging done as of October, Labs done as of December. Pharmacy; [facility] Rossana CAAL Allergies No Known Allergies Allergy (Verified 05/05/24 15:41) HPI HPI 8 month follow up: Details: LAST VISIT Hx of small bowel obstruction Epigastric abdominal pain Gastritis Schatzki's ring Hiatal hernia Duodenitis Esophagitis Plan Patient will continue pantoprazole. Avoid dietary triggers and late night snacking. Avoid smoking. Patient can take famotidine on as needed basis at bedtime. Patient was encouraged to avoid dietary triggers and late night snacking. Staying upright for minimum 3 hours after meals discussed with patient. Patient will be sent for enterography. History of colitis in 2021, patient had small-bowel obstruction most likely related to adhesions. Patient has history of hysterectomy in the past. Patient reports that she is moving her bowels without any issues. Increase fluid intake and activity to promote better bowel motility. I will see her in 8 months, sooner on as needed basis. She is agreeable to this plan and verbalizes understanding of instructions. She was given the opportunity to ask questions and all questions answered. ? Thank you for allowing me to participate in her care Orders Orders Creatinine Today R10.11 CT enterography Today R10.13, Z87.19 Blood Urea Nitrogen Today R10.11 Medications New famotidine (Pepcid) 20 mg PO BEDTIME 30 tabs 3RF K21.9 TODAY'S VISIT Patient is here today for follow-up and to discuss CT enterography results. Patient had normal study. Reports to be doing better. Taking pantoprazole every morning and famotidine at bedtime as needed. Patient reports that her symptoms have been suppressed. She is trying to eat better. Drinking plenty fluids. As mentioned above she had if history of colitis in 2021. Patient does report occasional loose stools then occasional constipation. Denies melena, hematochezia, unintentional weight loss or ribbon like stools. Will discuss going for colonoscopy and bowel prep today. [facility] Medical History (Updated 05/29/24 @ 20:49 by Sara Person, [facility]) History of colitis Duodenitis Hiatal hernia Schatzki's ring Gastritis Partial obstruction of small intestine Depression Anxiety Surgical History Status post right breast lumpectomy (01/25/23) History of colonoscopy (05/2019) History of left breast biopsy (02/02/19) Hx of hysterectomy (2005) Hx of lumpectomy (02/13/19) Family History Father Mesothelioma Emphysema lung Maternal Grandmother Heart attack Paternal Aunt Aneurysm Social History Household Members: Significant Other Housing: House Alcohol intake: former Patient Tobacco Use Status: Current everyday Tobacco user Tobacco use type: Cigar Cigarette Packs Per Day: 1 Substance Use Type: Marijuana Current occupational status: employed Review of Systems Const Denies weight gain and Denies weight loss ENT Reports no additional complaints, Denies dysphagia and Denies odynophagia Card Reports no additional complaints Resp Reports no additional complaints GI Denies abdominal pain, Denies belching, Denies melena, Denies bloating, Denies change in bowel habits, Denies dysphagia, Denies excessive flatus, Denies dyspepsia, Denies heartburn, Denies diarrhea, Denies loose stools, Denies nausea, Denies odynophagia and Denies vomiting Reports no additional complaints Musc Reports no additional complaints Neuro Reports no additional complaints Psych Reports no additional complaints Endo Reports no additional complaints Physical Exam Vital Signs: Last Vital Signs Pulse 74 05/05/24 15:40 BP 142/80 H 05/05/24 15:40 Pulse Ox 100 05/05/24 15:40 Oxygen Delivery Method Room Air 05/05/24 15:40 BMI result Body Mass Index 22.3 Const General: healthy appearing, no acute distress and well developed Nutritional Appearance: well nourished Orientation/consciousness: patient oriented x3 Resp Effort & Inspection: normal respiratory effort, able to speak in complete sentences, no tracheal deviation and symmetric chest movement Auscultation: clear to auscultation bilaterally Cardio Rate: regular rate GI Inspection: Yes normal to inspection and No distended Palpation (GI): Soft to palpation, not firm, nontender and No hepatosplenomegaly present Auscultation: normal bowel sounds General: Yes no CVA tenderness Back/Spine/Pelvis Back: no CVA tenderness Skin General skin exam: elasticity normal, turgor normal and dry skin Neuro General: patient oriented x3 Psych Appearance: grossly normal Mental Status: mental status grossly normal Results Reviewed Results Reviewed: CT ENTEROGRAPHY FINDINGS: GASTROINTESTINAL FINDINGS: Stomach: Well-distended and normal in appearance. Small intestine: Satisfactorily distended and normal in appearance. Large intestine: Well-distended and normal in appearance. No perirectal changes demonstrated. The appendix is normal. Additional findings: No abnormal enhancement of the vasa recta or significant mesenteric or retroperitoneal lymphadenopathy is seen. No abdominal abscess or fistulous tract demonstrated. ABDOMINAL AND PELVIC CT FINDINGS: Liver, gallbladder, biliary tract: The liver is homogeneous without masses or ductal. The gallbladder is well distended without stones. Pancreas: Unremarkable Spleen: Not enlarged Adrenal glands and kidneys: Both adrenal glands are unremarkable without nodularity. Kidneys demonstrate symmetrical attenuation in no hydroureteronephrosis, nephrolithiasis, cysts or masses. Ureters and bladder: Ureters are normal. Urinary bladder well distended without stones or masses. Lymphovascular structures: There is no aortic aneurysmal dilatation. No lymphadenopathy is seen. Bones: Unremarkable Lung bases: Normal CT/CT enterography IMPRESSION: Unremarkable examination. Assessment & Plan Assessment & Plan (1) Duodenitis: Code(s): K29.80 - Duodenitis without bleeding Category: Medical (2) Hx of small bowel obstruction: Code(s): Z87.19 - Personal history of other diseases of the digestive system Category: Medical (3) History of colitis: Code(s): Z87.19 - Personal history of other diseases of the digestive system Category: Medical Plan Patient will go for colonoscopy. What to expect before during and after procedure discussed with patient. Split MiraLax prep and Dulcolax prep sent to pharmacy. Continue avoiding dietary triggers. Increase fluid intake and activity to promote better bowel motility. Patient may take fiber supplements to help her bulk stools. May take [id number] probiotics. Continue taking pantoprazole in the morning and famotidine as needed at bedtime. Avoid dietary triggers and late night snacking. Staying upright for minimum 3 hours after meals discussed with patient. Message sent to surgical schedulers to book procedure for patient. Patient denies any cardiac or respiratory symptoms. No issues with anesthesia in the past. No history of sleep apnea. Not on any anticoagulation medication. Patient is agreeable to current plan of care and verbalizes understanding of instructions. She was given the opportunity to ask questions and all questions answered. Thank you for allowing me to participate in her care Medications: New polyethylene glycol 3350 (Miralax) As directed by gastroenterology department at [facility] 238 grams PO ONCE 238 grams 0RF Z12.11 - Encounter for screening for malignant neoplasm of colon bisacodyl (Dulcolax (bisacodyl)) take 4 tabs at noon the day before your colonoscopy 20 mg (4 x 5 mg) PO ONCE 4 tabs 0RF 1 day Z12.11 - Encounter for screening for malignant neoplasm of colon Coding Level of Care Code Est Pt Level 3 (29506) Diagnoses Duodenitis K29.80 Hx of small bowel obstruction Z87.19 History of colitis Z87.19 Time Spent (min) 30 Comment 20 minutes spent with patient and additional 15 minutes spent reviewing her records
--- OUTSIDE RECORDS SUMMARY | 2024-05-10 10:51 | XMS_ITS ---
Author Organization [facility] abilio [place] Address [address] [place] [address] Care Team Providers Care Child Daycare Worker Name Role Phone Samuel Patel MD Primary Care Provider Jerry Yan Unavailable [phone] REASON FOR VISIT Wart(s) Medications Medication SIG (Take, Route, Frequency, Duration) Notes Start Date End Date Status Vitamin D3 Active fluvoxaMINE Maleate 100 MG 1 tablet at b edtime Orally Once a day for 30 day(s) Active Social History Tobacco Use: Social History Observation Description Date Details (start date - stop date) Current Smoker NA - NA Tobacco Use/Smoking Question Answer Notes Are you a: current smoker How often do you smoke cigarettes? every day Alcohol Screen Question Answer Notes Did you have a drink containing alcohol in the p ast year? No Points 0 Interpretation Negative Tobacco use other than smoking: Question Answer Notes Are you an other tobacco user? No Vital Signs Height 5ft 2 in in 03/27/2024 Weight 120 lbs 03/27/2024 BMI 21.95 kg/m2 03/27/2024 Procedures Procedure Date Ordered Date Performed Result Body Sit e 97980-Dxtn Destruction, 1-14 03/27/2024 N/A Encounters Encounter Location Date Provider Diagnosis [facility] [address] [facility] [address] [place] [address] 03/27/2024 Jerry Terrazas Right foot pain M79.671 ; Plantar wart B07.0 and Left foot pain M79.672 Assessments Encounter Date Diagnosis (ICD Code) Assessment Notes Treatment Notes Treatment Clinical Notes Section Notes 03/27/2024 Right foot pain (ICD-10 - M79.671) 03/27/2024 Plantar wart (ICD-10 - B07.0) Chronic 03/27/2024 Left foot pain (ICD-10 - M79.672) Plan Of Treatment Pending Test Test Name Order Date 89801-Birl Destruction, 1-14 03/27/2024 Next Appt Details Follow Up: prn, Reason: Provider Name:Jerry Terrazas , 05/29/2024 03:30:00 PM, [address] [facility], [address], [place], [address], Procedure Notes * Category Sub-Category Detail Notes Wart Treatment Procedure Verrucae were de brided to pin-point bleeding margins with sterile 15 surgical blade, silver nitrate chemocautery applied, recomm. immune-boosting meds such as zinc, recomm. follow up with topical chemosurgical agents, recomm. CONT, Wartstick 40 percent Salicylic acid application under occlusion as directed, Pt defers any other forms of tx - 83158 Progress Notes * Yisel RUSSELLDOB:[birth year] (54 yo F)Acc No.[id number]:03/27/2024 Progress Notes Patient:?Yisel Russell Provider:?Jerry Terrazas DPM :1970???Age:54 Y???Sex:Female D ate:03/27/2024 Address:[address] [place], [place] [id number] Pcp:Samuel Patel MD Subjective: * Chief Complaints: * ???Wart(s) * HPI: ???Skin problems:?Pt States PCP Visit: ?DATE?11/08/2023 * ROS:?General/Constitutional:?Nausea?denies.?Vomiting?denies.?Hunger Thirst?denies.?Loss appetite?denies.?Chills?denies.?Fatigue?denies.?Fever?denies.?Night Sweats?denies.?Unexplained weight loss?denies.?Unexplained weight gain?denies.?HEENTM:?Dentures?denies.?Dizziness?denies.?Glasses/contacts?admits.?Retinopathy?de nies.?Blurred/double vision?denies.?TMJ?denies.?Discharge/drainage?denies.?Implants?denies.?Sore throat?denies.?Dental implants?denies.?Hard of hearing ?denies.?Difficulty chewing/swallowing/speaking?denies.?Nose bleeds?denies.?Sore mouth?denies.?Respiratory:?On Oxygen?denies.?Pneumonia/pleurisy?denies.?Bronchitis?denies.?Emphysema?denies.?C oughing?denies.?Cough blood?denies.?Shortness of breath?denies.?Wheezing?denies.?Cardiovascular:?Pacemaker?denies.?MVP?denies.?WPW?denies.?CHF?denies.?Heart attack?denies.?Septal defect?denies.?Rapid beat?denies.?Chest pain ?denies.?Atrial Fib.?denies.?Murmur/Palpitations?denies.?Gastrointestinal:?Hemorrhoids?denies.?Stomach/Abdominal pain?denies.?Dark blood stool?denies.?Irritable bowel ?denies.?Constipation?denies.?Diarrhea?denies.?Hematology:?Swelling?denies.?Clots?denies.?Varicose Veins?denies.?Bruising?denies.?Bleeding problem?denies.?Genitourinary:?Blood urine?denies.?Frequent/Painfu/urination/bladder control?denies.?Kidney stones?denies.?Infection (UTI)?denies.?Nephropathy?denies.?sex trans dis (STD)?denies.?Prostate?denies.?Musculoskeletal:?Hammertoes?denies.?Bunions?admits.?Back Pain?denies.?Muscle Cramps/ Resting?denies.?Muscle cramps / walking?denies.?Generalized aches and pains?denies.?Weakness?denies.?Integ.:?Guerrier?denies.?Scars?denies.?Corns/calluses?denies.?Ingrown nails?denies.?Painful nails?admits.?Open Sores?denies.?Rashes?denies.?Neurologic:?Difficulty sleeping?denies.?Brain disorder?denies.?Numbness?denies.?Balance trouble?denies.?Confusion?denies.?Fainting/blackouts?denies.?Tingling?denies.?Tr emors?denies.? * Medical History:? * Surgical History:?hysterecto my 2005lumpectomy 2019lumpectomy 12/2022 * Hospitalization/Major Diagno stic Procedure:?[facility]- bowel obstruction 08/2021[facility]- small bowel obstruction 10/04-10/06/2021[facility] Endoscopy 08/12/2023 * Family History:?Mother: hodan peters.?Father: , cancer.? * Social History:?Tobacco Use:?Tobacco Use/Smoking?Are you a:?current smoker ?How often do you smoke cigarettes??every day ?Tobacco use other than smoking?Are you an other tobacco user??No ???Drugs/Alcohol:?Drugs?Have you used drugs other than those for medical reasons in the past 12 months??Yes ?Marijuana??Yes ?Alcohol Screen?Did you have a drink containing alcohol in the past year??No ?Points?0 ?Interpretation?Negative ???Miscellaneous:?Caffeine: yes, frequency:, 3-5 cups per day. ?Children: yes, 1. ?Exercise: work. ?Marital status: . ?Occupation: [employer] at [employer]. * Medications:?TakingfluvoxaMI NE Maleate 100 MG Tablet 1 tablet at bedtime Orally Once a dayVitamin D3 Medication List reviewed and reconciled with the patientTaking fluvoxaMINE Maleate 100 MG Tablet 1 tablet at bedtime Orally Once a dayTaking Vitamin D3 Medication List reviewed and reconciled with the patient * Allergies:?yes[Allergies Ruth ified] Objective: * Vitals:?Ht:5ft 2 in, Wt:120, BMI:21.95, Shoe size:7, Ht-cm: 157.48 cm, Wt-k.43 kg. * Examination: ???Dermatologic: ?VERRUCA:?STILL, Reveals Multiple ( 4), multi-loculated , mosaic, round, raised, flat-topped, petechial bleeding papulae(s), with cauliflower appearance and interrruption of skin lines, with pain to lateral compression, and size estimated at 3-7mm diameter, plantar Forefoot, plantar Heel, B/L.? Assessment: * Assessment: 1.?Plantar wart - B07.0 (Jennifer sofiya), B/L, Chronic?2.?Right foot pain - M79.671?3.?Left foot pain - M79.672? Plan: * Treatment: * Procedures:?Wart Treatment:?Procedure?Verrucae were debrided to pin-point bleeding margins with sterile 15 surgical blade, silver nitrate chemocautery applied, recomm. immune-boosting meds such as zinc, recomm. follow up with topical chemosurgical agents, recomm. CONT, Wartstick 40 percent Salicylic acid application under occlusion as directed, Pt defers any other forms of tx - 67539.? * Procedure Codes:?74295 Wart Destruction, 1-14 * Follow Up:?prn * Images: * Sign off status: Completed true * Provider:?Jerry Terrazas DPM Date:?2023 Generated for Nneka west/Swetha/Alondra on:?05/10/2024 10:50 AM EST History and Physical Notes * HPI (History of Present Illness) Category Sub-Category Detail Notes Category Not es Skin problems Pt States PCP Visit: DATE: 11/08/2023 Examination Category Sub-Category Detail Notes Category Not es Dermatologic VERRUCA: STILL, Reveals M ultiple ( 4), multi-loculated , mosaic, round, raised, flat-topped, petechial bleeding papulae(s), with cauliflower appearance and interrruption of skin lines, with pain to lateral compression, and size estimated at 3-7mm diameter, plantar Forefoot, plantar Heel, B/L
--- OUTSIDE RECORDS SUMMARY | 2024-05-10 10:51 | XMS_ITS ---
Author Organization [facility] abilio [place] Address [address] [place] [address] Care Team Providers Care Machine Brusher Name Role Phone Samuel Patel MD Primary Care Provider Jerry Yan Unavailable [phone] REASON FOR VISIT Wart(s) Medications Medication SIG [...] tobacco user? No Vital Signs Height 5ft 2in in 04/24/2024 Weight 118 lbs 04/24/2024 BMI 21.58 kg/m2 04/24/2024 Procedures Procedure Date Ordered Date Performed Result Body Sit e 02944-Nywo Destruction, 1-14 04/24/2024 N/A Encounters Encounter Location Date Provider [facility] [address] [facility] [address] [place] [address] 04/24/2024 Jerry Terrazas Right foot pain M79.671 ; Plantar wart B07.0 and Left foot pain M79.672 Assessments Encounter Date Diagnosis (ICD Code) Assessment Notes Treatment Notes Treatment Clinical Notes Section Notes 04/24/2024 Right foot pain (ICD-10 - M79.671) 04/24/2024 Plantar wart (ICD-10 - B07.0) Chronic 04/24/2024 Left foot pain (ICD-10 - M79.672) Plan Of Treatment Pending Test Test Name Order Date 61012-Upmf Destruction, 1-14 04/24/2024 Next Appt Details Follow Up: prn, Reason: Provider Name:Jerry Terrazas , 05/29/2024 03:30:00 PM, [address] [facility], [address], [place], [address], Procedure Notes * Category Sub-Category Detail Notes Wart Treatment Procedure Verruca, as desc ribed in exam, were debrided to pin- point bleeding margins with sterile 15 surgical blade, silver nitrate chemocautery applied, recomm. immune-boosting meds such as zinc, recomm. follow up with topical chemosurgical agents, Pt defers any other forms of tx - 12244 Progress Notes * Yisel RUSSLELDOB:[birth year] (54 yo F)Acc No.[id number]:04/24/2024 Progress Notes Patient:?CHIVOANATSydni KIDDissa Provider:?Jerry Terrazas DPM :1970???Age:54 Y???Sex:Female D ate:04/24/2024 Address:[address] [place], [place] [id number] Pcp:Samuel Patel MD Subjective: * Chief Complaints: [...] Procedure:?[facility]- bowel obstruction 08/2021[facility]- small bowel obstruction 10/04-10/06/2021[facility]oscopy 08/12/2023 * Family History:?Mother: hodan monroy?Father: , cancer.? * Social History:?Tobacco Use:?Tobacco Use/Smoking?Are [...] 1. ?Exercise: work. ?Marital status: . ?Occupation: [employer] at [employer]. * Medications:?TakingfluvoxaMI NE Maleate 100 MG Tablet 1 tablet at bedtime Orally Once a day Vitamin D3 Medication List reviewed and reconciled with the patientTaking fluvoxaMINE Maleate 100 MG Tablet 1 tablet at bedtime Orally Once a day Taking Vitamin D3 Medication List reviewed and reconciled with the patient * Allergies:?yes[Allergies Ruth ified] Objective: * Vitals:?Ht:5ft 2in, Wt:118, BMI:21.58, Shoe size:7, Ht-cm: 157.48 cm, Wt-k.52 kg. * Examination: ???Dermatologic: ?VERRUCA:?STILL, Reveals Multiple ( 4), multi-loculated , mosaic, round, raised, flat-topped, petechial bleeding papule(s), with cauliflower appearance and interruption of skin lines, with pain to lateral compression, and size estimated at 3-7mm diameter, plantar Forefoot, plantar Heel, B/L.? Assessment: * Assessment: 1.?Plantar wart - B07.0 (Jennifer arriaza)???Specify :B/L???Notes :Chronic???2.?Right foot pain - M79.671???3.?Left foot pain - M79.672??? Plan: * Treatment: * Procedures:?Wart Treatment:?Procedure?Verruca, as described in exam, were debrided to pin-point bleeding margins with sterile 15 surgical blade, silver nitrate chemocautery applied, recomm. immune-boosting meds such as zinc, recomm. follow up with topical chemosurgical agents, Pt defers any other forms of tx - 15796.? * Procedure Codes:?28066 Wart Destruction, 1-14 * Follow Up:?prn * Images: * Sign off status: Completed true * Provider:?Jerry Terrazas DPM Date:?2023 Generated for Nneka west/Swetha/Bryitting on:?05/10/2024 10:50 AM EST History and Physical Notes * HPI (History of Present Illness) Category Sub-Category Detail Notes Category Not es Skin problems Pt States PCP Visit: DATE: 11/08/2023 Examination Category Sub-Category Detail Notes Category Not es Dermatologic VERRUCA: STILL, Reveals M ultiple ( 4), multi-loculated , mosaic, round, raised, flat-topped, petechial bleeding papule(s), with cauliflower appearance and interruption of skin lines, with pain to lateral compression, and size estimated at 3-7mm diameter, plantar Forefoot, plantar Heel, B/L
--- OUTSIDE RECORDS SUMMARY | 2024-05-10 10:51 | XMS_ITS ---
Author Organization [facility] abilio [place] Address [address] [place] [address] Care Team Providers Care Operating Manager Name Role Phone Samuel Patel MD Primary Care Provider Jerry Yan Unavailable [phone] REASON FOR VISIT Wart(s) Medications Medication SIG (Take, Route, Frequency, Duration) Notes Start Date End Date Status fluvoxaMINE Maleate 100 MG 1 tablet at b edtime Orally Once a day for 30 day(s) Active Vitamin D3 Active Social History Tobacco Use: Social History [...] other tobacco user? No Vital Signs Height 5ft2in in 02/24/2024 Weight 120 lbs 02/24/2024 BMI 21.95 kg/m2 02/24/2024 Procedures Procedure Date Ordered Date Performed Result Body Sit e 56823-Qfle Destruction, 1-14 02/24/2024 N/A Encounters Encounter Location Date Provider Diagnosis [facility] [address] [facility] [address] [place] [address] 02/24/2024 Jerry Terrazas Right foot pain M79.671 ; Plantar wart B07.0 and Left foot pain M79.672 Assessments Encounter Date Diagnosis (ICD Code) Assessment Notes Treatment Notes Treatment Clinical Notes Section Notes 02/24/2024 Right foot pain (ICD-10 - M79.671) 02/24/2024 Plantar wart (ICD-10 - B07.0) Chronic 02/24/2024 Left foot pain (ICD-10 - M79.672) Plan Of Treatment Pending Test Test Name Order Date 73376-Bemc Destruction, 1-14 02/24/2024 Next Appt Details Follow Up: prn, Reason: Provider Name:Jerry Terrazas , 05/29/2024 03:30:00 PM, [address] [facility], [address], [place], [address], Procedure Notes * Category Sub-Category Detail Notes Wart Treatment Procedure Verrucae were de brided to pin-point bleeding margins with sterile 15 surgical blade, silver nitrate chemocautery applied, recomm. immune-boosting meds such as zinc, recomm. follow up with topical chemosurgical agents, recomm. CONT, Wartstick 40 percent Salicylic acid application under occlusion as directed, Pt defers any other forms of tx - 03854 Progress Notes * Yisel RUSSELLDOB:[birth year] (53 yo F)Acc No.[id number]:02/24/2024 Progress Notes Patient:?Yisel Russell Provider:?Jerry Terrazas DPM :1970???Age:53 Y???Sex:Female D ate:02/24/2024 Address:[address] [place], [place] [phone] Pcp:Samuel Patel MD Subjective: * Chief Complaints: [...] 1. ?Exercise: work. ?Marital status: . ?Occupation: [employer]. * Medications:?TakingfluvoxaMI NE Maleate 100 MG Tablet 1 tablet at bedtime Orally Once a dayVitamin D3 Medication List reviewed and reconciled with the patientTaking fluvoxaMINE Maleate 100 MG Tablet 1 tablet at bedtime Orally Once a dayTaking Vitamin D3 Medication List reviewed and reconciled with the patient * Allergies:?yes[Allergies Ruth ified] Objective: * Vitals:?Ht:5ft2in, Wt:120, B FL:21.95, Shoe size:7, Ht-cm: 157.48 cm, Wt-k.43 kg. [...] defers any other forms of tx - 79514.? * Procedure Codes:?47911 Wart Destruction, 1-14 * Follow Up:?prn * Images: * Sign off status: Completed true * Provider:?Jerry Terrazas DPM Date:?2023 Generated for Nneka west/Swetha/Alondra on:?05/10/2024 10:51 AM EST History and Physical Notes * [...]
--- OUTSIDE RECORDS SUMMARY | 2024-05-10 10:51 | XMS_ITS | Patient Health Record ---
[facility] Organization [facility] Address [address] [place] [address] Care Team Providers Care Guest Advisor Name Role Phone Samuel Patel MD Primary Care Provider Jerry Yan Unavailable [phone] Allergies No Known Allergies Reason For Referral No Information Medications Medication SIG (Take, Route, Frequency, Duration) Notes Start Date End Date Status Vitamin D3 Active fluvoxaMINE Maleate 100 MG 1 tablet at b edtime Orally Once a day for 30 day(s) Active Immunizations Vaccine Route Administration Date Status Comme nts COVID-19 Moderna Vaccine Unknown 06/20/2020 Administered COVID-19 Moderna Vaccine Unknown 05/21/2021 Administered 1st 06/20/20 2nd 07/18/20 Social History Tobacco Use: Social History Observation [...] Are you an other tobacco user? No Problems Problem Type SNOMED Code ICD Code Onset Dates Problem Status W/U Status Risk Notes Problem Plantar wart (35834001) Plantar wart (B07.0) Active confirmed Chronic Problem 210501570 Tinea unguium (B35.1) Active confirmed Vital Signs Height 5ft 2in in 04/24/2024 Weight 118 lbs 04/24/2024 BMI 21.58 kg/m2 04/24/2024 Procedures Procedure Date Ordered Date Performed Result Body Sit e 74844-Bvvp Destruction, 1-06/03/2023 N/A 82801-Pbfj Destruction, -07/05/2023 N/A 75936-IOGVOGX NAIL, 6 OR MORE 08/05/2023 N/A 24970-Egvw Destruction, -08/05/2023 N/A 85784-Jksm Destruction, -09/09/2023 N/A 15830-Ibwu Destruction, 06-1311/03/2023 N/A 59641-Yuqa Destruction, 06-1312/01/2023 N/A 77204-Rwfd Destruction, 06-1312/27/2023 N/A 63006-Hgou Destruction, 06-1301/26/2024 N/A 75753-Zgng Destruction, 06-1302/24/2024 N/A 93039-Cnri Destruction, 06-1303/27/2024 N/A 58363-Ymmv Destruction, 06-1304/24/2024 N/A Encounters Encounter Location Date Provider Diagnosis [address] [address] 06/03/2023 Jerry Mk Right foot pain M79.671 ; Plantar wart B07.0 and Left foot pain M79.[address] [address] 07/05/2023 Jerry Mk Right foot pain M79.671 ; Plantar wart B07.0 and Left foot pain M79.[address] [address] 08/05/2023 Jerry Mk Right foot pain M79.671 ; Plantar wart B07.0 ; Left foot pain M79.672 ; Tinea unguium B35.1 ; Pain in right toe(s) M79.674 and Pain in left toe(s) M79.[address] [address] 09/09/2023 Jerry Mk Right foot pain M79.671 ; Plantar wart B07.0 and Left foot pain M79.672 [place] [address] [address] 11/03/2023 Jerry Mk Right foot pain M79.671 ; Plantar wart B07.0 and Left foot pain M79.672 [facility] [address] [place] [address] 12/01/2023 Jerry Mk Right foot pain M79.671 ; Plantar wart B07.0 ; Left foot pain M79.672 ; Pain in left foot M79.672 ; Pain in left ankle and joints of left foot M25.572 ; Bursitis of left foot M77.52 ; Hallux valgus (acquired), left foot M20.12 and Hallux limitus of left foot M20.5X2 [address] [address] 12/27/2023 Jerry Mk Right foot pain M79.671 ; Plantar wart B07.0 and Left foot pain M79.[address] [address] 01/26/2024 Jerry Mk Right foot pain M79.671 ; Plantar wart B07.0 and Left foot pain M79.[address] [address] 02/24/2024 Jerry Mk Right foot pain M79.671 ; Plantar wart B07.0 and Left foot pain M79.[address] [address] 03/27/2024 Jerry Mk Right foot pain M79.671 ; Plantar wart B07.0 and Left foot pain M79.[address] [address] 04/24/2024 Jerry Mk Right foot pain M79.671 ; Plantar wart B07.0 and Left foot pain M79.[address] [address] 09/09/2023 Jerry Mk [address] [place] [address] 12/06/2023 Jerry Terrazas Assessments Encounter Date Diagnosis (ICD Code) Assessment Notes Treatment Notes Treatment Clinical Notes Section Notes 06/03/2023 Plantar wart (ICD-10 - B07.0) Chronic 06/03/2023 Right foot pain (ICD-10 - M79.671) 07/05/2023 Plantar wart (ICD-10 - B07.0) Chronic 07/05/2023 Right foot pain (ICD-10 - M79.671) 08/05/2023 Plantar wart (ICD-10 - B07.0) Chronic 08/05/2023 Right foot pain (ICD-10 - M79.671) 09/09/2023 Plantar wart (ICD-10 - B07.0) Chronic 09/09/2023 Right foot pain (ICD-10 - M79.671) 11/03/2023 Plantar wart (ICD-10 - B07.0) Chronic 11/03/2023 Right foot pain (ICD-10 - M79.671) 12/01/2023 Plantar wart (ICD-10 - B07.0) Chronic 12/01/2023 Right foot pain (ICD-10 - M79.671) 12/27/2023 Plantar wart (ICD-10 - B07.0) Chronic 12/27/2023 Right foot pain (ICD-10 - M79.671) 01/26/2024 Plantar wart (ICD-10 - B07.0) Chronic 01/26/2024 Right foot pain (ICD-10 - M79.671) 02/24/2024 Plantar wart (ICD-10 - B07.0) Chronic 02/24/2024 Right foot pain (ICD-10 - M79.671) 03/27/2024 Plantar wart (ICD-10 - B07.0) Chronic 03/27/2024 Right foot pain (ICD-10 - M79.671) 04/24/2024 Plantar wart (ICD-10 - B07.0) Chronic 04/24/2024 Right foot pain (ICD-10 - M79.671) 04/24/2024 Left foot pain (ICD-10 - M79.672) 03/27/2024 Left foot pain (ICD-10 - M79.672) 02/24/2024 Left foot pain (ICD-10 - M79.672) 01/26/2024 Left foot pain (ICD-10 - M79.672) 12/27/2023 Left foot pain (ICD-10 - M79.672) 12/01/2023 Left foot pain (ICD-10 - M79.672) 11/03/2023 Left foot pain (ICD-10 - M79.672) 09/09/2023 Left foot pain (ICD-10 - M79.672) 08/05/2023 Left foot pain (ICD-10 - M79.672) 07/05/2023 Left foot pain (ICD-10 - M79.672) 06/03/2023 Left foot pain (ICD-10 - M79.672) 08/05/2023 Tinea unguium (ICD-10 - B35.1) 12/01/2023 Pain in left foot (ICD-10 - M79.672) 12/01/2023 Pain in left ankle and joints of left foot (ICD-10 - M25.572) 08/05/2023 Pain in right toe(s) (ICD-10 - M79.674) 08/05/2023 Pain in left toe(s) (ICD-10 - M79.675) 12/01/2023 Bursitis of left foot (ICD-10 - M77.52) 12/01/2023 Hallux valgus (acquired), left foot (ICD-10 - M20.12) 12/01/2023 Hallux limitus of left foot (ICD-10 - M20.5X2) Plan Of Treatment Pending Test Test Name Order Date X ray : Foot, left 3V 12/01/2023 34019-VMUGNGY NAIL, 6 OR MORE 08/05/2023 49347-XPSAJUW NAIL, 6 OR MORE 04/03/2021 81556-ZUIQAUR NAIL, 6 OR MORE 07/25/2020 39263-JWNPSVY NAIL, 6 OR MORE 09/11/2021 85877-GLVXKWJ NAIL, 6 OR MORE 07/01/2022 17614-DJCQRHJ NAIL, 6 OR MORE 06/18/2021 17244-YSUBSKX NAIL, 6 OR MORE 04/01/2023 59905-Jprs Destruction, -05/03/2023 16381-Tvhg Destruction, 06-1306/03/2023 69568-Pfpk Destruction, 06-1307/05/2023 82607-Bfje Destruction, 06-1308/05/2023 91897-Ddcq Destruction, 06-1306/18/2021 98020-Tfam Destruction, 06-1308/07/2021 62148-Xoch Destruction, 06-1309/11/2021 94489-Ggqy Destruction, 06-1307/30/2022 38844-Iwtn Destruction, 06-1308/31/2022 51684-Nbwy Destruction, 06-1310/12/2022 02274-Fuwt Destruction, 06-1311/16/2022 45405-Yzfh Destruction, 06-1312/14/2022 60586-Chnk Destruction, 06-1301/21/2023 56040-Inxy Destruction, 06-1302/24/2023 80179-Vocj Destruction, 06-1304/01/2023 39828-Wkka Destruction, 06-1310/16/2021 99380-Kadc Destruction, 06-1312/17/2021 88124-Edim Destruction, 06-1301/29/2022 07100-Vnah Destruction, 06-1303/04/2022 72854-Rzig Destruction, 06-1304/09/2022 73723-Cygg Destruction, 06-1305/20/2022 83613-Xcvu Destruction, 06-1307/01/2022 22411-Usdx Destruction, 06-1307/25/2020 27683-Wcdt Destruction, 06-1308/21/2020 24938-Rdfc Destruction, 06-1309/12/2020 19248-Gmbt Destruction, 06-1310/03/2020 31098-Mbwe Destruction, 06-1310/24/2020 02519-Regp Destruction, 06-1311/25/2020 85405-Ivpg Destruction, 06-1312/19/2020 28987-Ywim Destruction, 06-1301/13/2021 91741-Tboi Destruction, 06-1302/19/2021 56267-Jekk Destruction, 06-1304/03/2021 30248-Fjaa Destruction, 06-1304/28/2021 05628-Mkng Destruction, 06-1306/27/2020 89155-Amvf Destruction, 06-1309/09/2023 03512-Kwwb Destruction, 06-1311/03/2023 41091-Zggp Destruction, 06-1312/01/2023 67465-Zxva Destruction, 06-1312/27/2023 28252-Xmqs Destruction, 06-1301/26/2024 15344-Kwtk Destruction, 06-1302/24/2024 42637-Jokw Destruction, 06-1303/27/2024 80742-Ttip Destruction, 06-1304/24/2024 Next Appt Details Provider Name:Jerry Terrazas , 05/29/2024 03:30:00 PM, [address] [facility], [facility] [address], [place], [address], Insurance Providers Payer Name Payer Address Payer Phone Subscriber Number Group Number Insured Name Patient Relationship to Insured Coverage Start Date Coverage End Date [facility] [address] [place] [address] [id number] Yisel Mejias Self - patient is the insured Medical (General) History Medical History History ICD Code Anxiety Back,Hip,and Knee pain Broken bones Chicken pox Depression Headaches Warts Surgical History Surgery Date(Month/Year) hysterectomy 2005 lumpectomy 2019 lumpectomy 12/2022 Hospitalization History Reason Date(Month/Year) [facility] Endoscopy 08/12/2023 Espitia- small bowel obstruction 10/04- 022 Espitia- bowel obstruction 08/2021
== END 2024-05-05 16:15 | disposition home or self-care (01) ==
PROVIDERS: PCP Internal Medicine; Visit Provider Nurse Practitioner Family
DX: K29.80 Duodenitis without bleeding (principal); Z87.19 Personal history of other diseases of the digestive system
CPT/HCPCS: 99213

== ENCOUNTER → 2024-05-05 15:31 | Outpatient (BNVA) | payer BC, SELFPAY | PROVIDERS: PCP Internal Medicine; Visit Provider Nurse Practitioner Family ==

== ENCOUNTER → 2024-05-22 16:00 | Outpatient (BNV) | payer BC, SELFPAY | PROVIDERS: PCP Internal Medicine; Visit Provider Internal Medicine | DX: Z12.31 Encounter for screening mammogram for malignant neoplasm of breast (principal) | CPT/HCPCS: 77063; 77067 ==

== ENCOUNTER 2024-05-22 16:02 | Outpatient (REF) | payer BC, SELFPAY ==
--- OUTSIDE RECORDS SUMMARY | 2024-05-22 16:04 | XMS_ITS ---
Author Organization [facility] Address [address] [place] [address] Care Team Providers Care Director Of Student Life Name Role Phone Samuel Patel MD Primary Care Provider Jerry Yan Unavailable [phone] REASON FOR VISIT Wart(s) Medications Medication SIG [...] Ordered Date Performed Result Body Sit e 47546-Isae Destruction, 1-14 04/24/2024 N/A Encounters Encounter Location Date Provider [facility] [address] [facility] [address] [place] [address] 04/24/2024 Jerry Terrazas Right foot pain M79.671 ; Plantar wart B07.0 and Left foot pain M79.672 Assessments Encounter Date Diagnosis (ICD Code) Assessment Notes Treatment Notes Treatment Clinical Notes Section Notes 04/24/2024 Right foot pain (ICD-10 - M79.671) 04/24/2024 Plantar wart (ICD-10 - B07.0) Chronic 04/24/2024 Left foot pain (ICD-10 - M79.672) Plan Of Treatment Pending Test Test Name Order Date 70516-Gcfe Destruction, 1-14 04/24/2024 Next Appt Details Follow Up: prn, Reason: Provider Name:Jerry Terrazas , 05/29/2024 03:30:00 PM, [address] [facility], [address], [place], [address], Procedure Notes * Category Sub-Category Detail Notes Wart Treatment Procedure Verruca, as desc ribed in exam, were debrided to pin- point bleeding margins with sterile 15 surgical blade, silver nitrate chemocautery applied, recomm. immune-boosting meds such as zinc, recomm. follow up with topical chemosurgical agents, Pt defers any other forms of tx - 09120 Progress Notes * Yisel RUSSELLDOB:[birth year] (54 yo F)Acc No.[id number]:04/24/2024 Progress Notes Patient:?CHIVOANATSydni KIDDissa Provider:?Jerry Terrazas DPM :1970???Age:54 Y???Sex:Female D ate:04/24/2024 Address:[address] [place], [place] [address] Pcp:Samuel Patel MD Subjective: * Chief Complaints: [...] 1. ?Exercise: work. ?Marital status: . 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 * Medications:?TakingfluvoxaMI NE Maleate 100 MG Tablet [...] defers any other forms of tx - 19805.? * Procedure Codes:?61709 Wart Destruction, 1-14 * Follow Up:?prn * Images: * Sign off status: Completed true * Provider:?Jerry Terrazas DPM Date:?2023 Generated for Nneka west/Swetha/Alondra on:?05/22/2024 04:04 PM EST History and Physical Notes * HPI [...]
--- OUTSIDE RECORDS SUMMARY | 2024-05-22 16:04 | XMS_ITS ---
Author Organization [facility] [place] Address [address] [place] [address] Care Team Providers Care Aeronautical Research Engineer Name Role Phone Samuel Patel MD Primary Care Provider Jerry Yan Unavailable [phone] REASON FOR VISIT Wart(s) Medications Medication SIG [...] Ordered Date Performed Result Body Sit e 26518-Azrh Destruction, 1-14 03/27/2024 N/A Encounters Encounter Location Date Provider Diagnosis [facility] [place] [address] [facility] [address] [place] [address] 03/27/2024 Jerry Terrazas Right foot pain M79.671 ; Plantar wart B07.0 and Left foot pain M79.672 Assessments Encounter Date Diagnosis (ICD Code) Assessment Notes Treatment Notes Treatment Clinical Notes Section Notes 03/27/2024 Right foot pain (ICD-10 - M79.671) 03/27/2024 Plantar wart (ICD-10 - B07.0) Chronic 03/27/2024 Left foot pain (ICD-10 - M79.672) Plan Of Treatment Pending Test Test Name Order Date 27391-Whnw Destruction, 1-14 03/27/2024 Next Appt Details Follow Up: prn, Reason: Provider Name:Jerry Terrazas , 05/29/2024 03:30:00 PM, [address] [facility], [address], [place], [address], Procedure Notes * Category Sub-Category Detail Notes Wart Treatment Procedure Verrucae were de brided to pin-point bleeding margins with sterile 15 surgical blade, silver nitrate chemocautery applied, recomm. immune-boosting meds such as zinc, recomm. follow up with topical chemosurgical agents, recomm. CONT, Wartstick 40 percent Salicylic acid application under occlusion as directed, Pt defers any other forms of tx - 79813 Progress Notes * Yisel RUSSELLDOB:[birth year] (54 yo F)Acc No.[id number]:03/27/2024 Progress Notes Patient:?Yisel Russell Provider:?Jerry Terrazas DPM :1970???Age:54 Y???Sex:Female D ate:03/27/2024 Address:[address] [place], [place] [address] Pcp:Samuel Patel MD Subjective: * Chief Complaints: [...] 1. ?Exercise: work. ?Marital status: . ?Occupation: [employer] at [employer]. * Medications:?TakingfluvoxaMI NE Maleate 100 MG Tablet [...] defers any other forms of tx - 71933.? * Procedure Codes:?15925 Wart Destruction, 1-14 * Follow Up:?prn * [...]
--- OUTSIDE RECORDS SUMMARY | 2024-05-22 16:04 | XMS_ITS ---
Author Organization [facility] ab[facility] [place] Address [address] [place] [address] Care Team Providers Care Entry Level Chemist Name Role Phone Samuel Patel MD Primary Care Provider Jerry Yan Unavailable [phone] REASON FOR VISIT Wart(s) Medications Medication SIG [...] Ordered Date Performed Result Body Sit e 71990-Zzub Destruction, 1-14 02/24/2024 N/A Encounters Encounter Location Date Provider Diagnosis [facility] [place] [address] [facility] [address] [place] [address] 02/24/2024 Jerry Terrazas Right foot pain M79.671 ; Plantar wart B07.0 and Left foot pain M79.672 Assessments Encounter Date Diagnosis (ICD Code) Assessment Notes Treatment Notes Treatment Clinical Notes Section Notes 02/24/2024 Right foot pain (ICD-10 - M79.671) 02/24/2024 Plantar wart (ICD-10 - B07.0) Chronic 02/24/2024 Left foot pain (ICD-10 - M79.672) Plan Of Treatment Pending Test Test Name Order Date 97007-Gwie Destruction, 1-14 02/24/2024 Next Appt Details Follow Up: prn, Reason: Provider Name:Jerry Terrazas , 05/29/2024 03:30:00 PM, [address] [facility], [address], [place], [address], Procedure Notes * Category Sub-Category Detail Notes Wart Treatment Procedure Verrucae were de brided to pin-point bleeding margins with sterile 15 surgical blade, silver nitrate chemocautery applied, recomm. immune-boosting meds such as zinc, recomm. follow up with topical chemosurgical agents, recomm. CONT, Wartstick 40 percent Salicylic acid application under occlusion as directed, Pt defers any other forms of tx - 55083 Progress Notes * Yisel RUSSELLDOB:[birth year] (53 yo F)Acc No.[id number]:02/24/2024 Progress Notes Patient:?Yisel Russell Provider:?Jerry Terrazas DPM :1970???Age:53 Y???Sex:Female D ate:02/24/2024 Address:[address] [place], [place] [phone] Pcp:Samuel Patel MD Subjective: * Chief Complaints: [...] 1. ?Exercise: work. ?Marital status: . 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 * Medications:?TakingfluvoxaMI NE Maleate 100 MG Tablet 1 tablet at bedtime Orally Once a dayVitamin D3 Medication List reviewed and reconciled with the patientTaking fluvoxaMINE Maleate 100 MG Tablet 1 tablet at bedtime Orally Once a dayTaking Vitamin D3 Medication List reviewed and reconciled with the patient * Allergies:?yes[Allergies Ruth ified] Objective: * Vitals:?Ht:5ft2in, Wt:120, B WI:21.95, Shoe size:7, Ht-cm: 157.48 cm, Wt-k.43 kg. [...] defers any other forms of tx - 00302.? * Procedure Codes:?32554 Wart Destruction, 1-14 * Follow Up:?prn * [...]
--- OUTSIDE RECORDS SUMMARY | 2024-05-22 16:05 | XMS_ITS | Patient Health Record ---
Author Organization [facility] Address [address] [place] [address] Care Team Providers Care Manager Data Name Role Phone Samuel Patel MD Primary Care Provider Jerry Yan Unavailable [phone] Allergies No Known Allergies Reason For Referral [...] W/U Status Risk Notes Problem Plantar wart (81577542) Plantar wart (B07.0) Active confirmed Chronic Problem 784618027 Tinea unguium (B35.1) Active confirmed Vital Signs Height 5ft 2in in 04/24/2024 Weight 118 lbs 04/24/2024 BMI 21.58 kg/m2 04/24/2024 Procedures Procedure Date Ordered Date Performed Result Body Sit e 90864-Chfb Destruction, 1-06/03/2023 N/A 78823-Qrpu Destruction, -07/05/2023 N/A 58680-NAWAZOE NAIL, 6 OR MORE 08/05/2023 N/A 87922-Gcto Destruction, -08/05/2023 N/A 18858-Quji Destruction, -09/09/2023 N/A 08608-Lptc Destruction, 06-1311/03/2023 N/A 53806-Kjir Destruction, 06-1312/01/2023 N/A 01457-Jlpf Destruction, 06-1312/27/2023 N/A 92328-Thyk Destruction, 06-1301/26/2024 N/A 13816-Kouw Destruction, 06-1302/24/2024 N/A 20965-Jtzl Destruction, 06-1303/27/2024 N/A 91048-Qwqg Destruction, 06-1304/24/2024 N/A Encounters Encounter Location Date Provider Diagnosis [address] [address] 06/03/2023 Jerry Mk Right foot pain M79.671 ; Plantar wart B07.0 and Left foot pain M79.[address] [address] 07/05/2023 Jerry Mk Right foot pain M79.671 ; Plantar wart B07.0 and Left foot pain M79.[address] [address] 08/05/2023 Jerry Mk Right foot pain M79.671 ; Plantar wart B07.0 ; Left foot pain M79.672 ; Tinea unguium B35.1 ; Pain in right toe(s) M79.674 and Pain in left toe(s) M79.[address] [address] 09/09/2023 Jerry Mk Right foot pain M79.671 ; Plantar wart B07.0 and Left foot pain M79.672 [place] [address] [address] 11/03/2023 Jerry Mk Right foot pain M79.671 ; Plantar wart B07.0 and Left foot pain M79.672 [facility] [address] [place] [address] 12/01/2023 Jerry Mk Right foot pain M79.671 ; Plantar wart B07.0 ; Left foot pain M79.672 ; Pain in left foot M79.672 ; Pain in left ankle and joints of left foot M25.572 ; Bursitis of left foot M77.52 ; Hallux valgus (acquired), left foot M20.12 and Hallux limitus of left foot M20.5X2 [address] [address] 12/27/2023 Jerry Mk Right foot pain M79.671 ; Plantar wart B07.0 and Left foot pain M79.[address] [address] 01/26/2024 Jerry Mk Right foot pain M79.671 ; Plantar wart B07.0 and Left foot pain M79.[address] [address] 02/24/2024 Jerry Mk Right foot pain M79.671 ; Plantar wart B07.0 and Left foot pain M79.[address] [address] 03/27/2024 Jerry Mk Right foot pain M79.671 ; Plantar wart B07.0 and Left foot pain M79.[address] [address] 04/24/2024 Jerry Mk Right foot pain M79.671 ; Plantar wart B07.0 and Left foot pain M79.[address] [address] 09/09/2023 Jerry Mk [address] [place] [address] 12/06/2023 Jerry Terrazas Assessments Encounter Date Diagnosis [...] X ray : Foot, left 3V 12/01/2023 82734-EIQUOUP NAIL, 6 OR MORE 08/05/2023 06203-XPFYLIB NAIL, 6 OR MORE 04/03/2021 48672-DFIOHNR NAIL, 6 OR MORE 07/25/2020 22062-XHWDDBB NAIL, 6 OR MORE 09/11/2021 59168-MILCFOB NAIL, 6 OR MORE 07/01/2022 25792-KROAZBZ NAIL, 6 OR MORE 06/18/2021 42312-LOOQZGO NAIL, 6 OR MORE 04/01/2023 75058-Zrwj Destruction, -05/03/2023 85917-Jcxt Destruction, 06-1306/03/2023 23276-Xead Destruction, 06-1307/05/2023 57977-Olrc Destruction, 06-1308/05/2023 70744-Ifil Destruction, 06-1306/18/2021 89246-Gomm Destruction, 06-1308/07/2021 73154-Zohk Destruction, 06-1309/11/2021 90989-Aduj Destruction, 06-1307/30/2022 92184-Etmb Destruction, 06-1308/31/2022 15116-Ykwn Destruction, 06-1310/12/2022 07543-Yvcy Destruction, 06-1311/16/2022 07030-Gpkh Destruction, 06-1312/14/2022 12342-Wasq Destruction, 06-1301/21/2023 96994-Acqd Destruction, 06-1302/24/2023 60436-Innn Destruction, 06-1304/01/2023 16401-Clgg Destruction, 06-1310/16/2021 30343-Krpp Destruction, 06-1312/17/2021 49650-Rtdc Destruction, 06-1301/29/2022 47957-Vuem Destruction, 06-1303/04/2022 52641-Wmru Destruction, 06-1304/09/2022 09562-Mlas Destruction, 06-1305/20/2022 00740-Xahb Destruction, 06-1307/01/2022 80194-Ideq Destruction, 06-1307/25/2020 04381-Itwz Destruction, 06-1308/21/2020 88995-Tghl Destruction, 06-1309/12/2020 90357-Uyhl Destruction, 06-1310/03/2020 53159-Nwjq Destruction, 06-1310/24/2020 04493-Mgbe Destruction, 06-1311/25/2020 88148-Zykv Destruction, 06-1312/19/2020 44239-Sjzj Destruction, 06-1301/13/2021 73068-Azgs Destruction, 06-1302/19/2021 28212-Taqv Destruction, 06-1304/03/2021 86902-Cxpt Destruction, 06-1304/28/2021 41817-Haul Destruction, 06-1306/27/2020 62021-Zdrz Destruction, 06-1309/09/2023 21329-Said Destruction, 06-1311/03/2023 88243-Zbws Destruction, 06-1312/01/2023 50563-Cyir Destruction, 06-1312/27/2023 11863-Ucau Destruction, 06-1301/26/2024 77432-Vwjk Destruction, 06-1302/24/2024 99423-Hlnn Destruction, 06-1303/27/2024 35445-Geeh Destruction, 06-1304/24/2024 Next Appt Details Provider Name:Jerry Terrazas , 05/29/2024 03:30:00 PM, [address] [facility], [facility] [address], [place], [address], Insurance Providers Payer Name Payer Address Payer Phone Subscriber Number Group Number Insured Name Patient Relationship to Insured Coverage Start Date Coverage End Date [facility] [address] [place] [address] [id number] Yisel Mejias Self - patient is the insured Medical (General) History Medical History History ICD Code Anxiety Back,Hip,and Knee pain Broken bones Chicken pox Depression Headaches Warts Surgical History Surgery Date(Month/Year) hysterectomy 2005 lumpectomy 2019 lumpectomy 12/2022 Hospitalization History Reason Date(Month/Year) [facility] [place] 08/12/2023 Espitia- small bowel obstruction 10/04- 022 Espitia- bowel obstruction 08/2021
== END 2024-05-22 16:03 | disposition home or self-care (01) ==
LOC: HO.MAMMO 16:02
PROVIDERS: PCP Internal Medicine; Visit Provider Surgery
DX: Z12.31 Encounter for screening mammogram for malignant neoplasm of breast (principal)
CPT/HCPCS: 77063; 77067

== ENCOUNTER 2024-08-23 09:47 | Day surgery (SDC) | payer BC, SELFPAY ==
--- OUTSIDE RECORDS SUMMARY | 2024-08-03 08:34 | XMS_ITS ---
Author Organization [facility] Address [address] [facility] [place] [address] Care Team Providers Care Armature Balancer Name Role Phone Samuel Patel MD Primary Care Provider Jerry Yan Unavailable [phone] Allergies No Known Allergies REASON FOR VISIT Wart(s), Skin Problem Medications Medication SIG (Take, Route, Frequency, Duration) Notes Start Date End Date Status Ciclopirox Olamine 0.77 % 1 application Externally Twice a day to skin of feet including between the toes for 30 days Active fluvoxaMINE Maleate 100 MG 1 tablet at b edtime Orally Once a day for 30 day(s) Active Vitamin D3 Active Social History Tobacco Use: Social History Observation Description Date Details (start date - stop date) Current Smoker 06/01/1989 - NA Alcohol Screen Question Answer Notes Did you have a drink containing alcohol in the p ast year? No Points 0 Interpretation Negative Tobacco use other than smoking: Question Answer Notes Are you an other tobacco user? No Tobacco Control (Standard) Question Answer Notes Tobacco use: Current smoker When did you start smoking? 06/01/1989 How often do you smoke cigarettes? Some days, bu t not every day How many cigarettes a day do you smoke? 5 or les s How soon after you wake up d o you smoke your first cigarette? 31-60 minutes Are you interested in quitting? Not ready to yared t Vital Signs Blood pressure systolic 120 mm Hg 06/28/19 25 Blood pressure diastolic 63 mm Hg 025 Height 5ft 2in in 06/28/2024 Weight 123 lbs 06/28/2024 BMI 22.49 kg/m2 06/28/2024 Procedures Procedure Date Ordered Date Performed Result Body Sit e 44269-Ljln Destruction, 1-14 06/28/2024 N/A Encounters Encounter Location Date Provider Diagnosis [facility] [place] [address] [place] [id number] 06/28/2024 Jerry Terrazas Right foot pain M79.671 ; Plantar wart B07.0 ; Left foot pain M79.672 and Tinea pedis of both feet B35.3 Assessments Encounter Date Diagnosis (ICD Code) Assessment Notes Treatment Notes Treatment Clinical Notes Section Notes 06/28/2024 Right foot pain (ICD-10 - M79.671) 06/28/2024 Plantar wart (ICD-10 - B07.0) Chronic 06/28/2024 Left foot pain (ICD-10 - M79.672) 06/28/2024 Tinea pedis of both feet (ICD-10 - B35.3) Plan Of Treatment Medication Medication Name Sig Start Date Stop Date Notes Ciclopirox Olamine 0.77 % 1 application Externally Twice a day to skin of feet including between the toes for 30 days Pending Test Test Name Order Date [id number]-Gyfs Destruction, 1-14 06/28/2024 Next Appt Details Follow Up: prn, Reason: Provider Name:Jerry Terrazas , 08/31/2024 03:30:00 PM, [facility] [address], [place], [address], Procedure Notes * Category Sub-Category Detail Notes Wart Treatment Procedure Verruca, as desc ribed in exam, were debrided to pin- point bleeding margins with sterile 15 surgical blade, silver nitrate chemocautery applied, recomm. immune-boosting meds such as zinc, recomm. follow up with topical chemosurgical agents, recomm. Wartstick 40 percent Salicylic acid application under occlusion as directed, Pt defers any other forms of tx - 61840 Progress Notes * Yisel RUSSELLDOB:[birth year] (54 yo F)Acc No.[id number]:06/28/2024 Progress Notes Patient:?Yisel RUSSELL Provider:?Jerry Terrazas DPM :1970???Age:54 Y???Sex:Female D ate:06/28/2024 Address:[address] [place] [address] [facility] [id number] Pcp:Samuel Patel MD Subjective: * Chief Complaints: * ???Wart(s)Skin Problem * HPI: ???Skin problems:?Pt States PCP Visit: ?DATE?11/08/2023 ?Nature:?scaling , redness.?Location:?B/L .?Duration:?several days.?Course:?worse.? * ROS:?General/Constitutional:?Nausea?denies.?Vomiting?denies.?Hunger Thirst?denies.?Loss appetite?denies.?Chills?denies.?Fatigue?denies.?Fever?denies.?Night Sweats?denies.?Unexplained weight loss?denies.?Unexplained [...] * Hospitalization/Major Diagno stic Procedure:?[facility]- bowel obstruction 4/2022[facility]- small bowel obstruction 10/04-10/06/2021[facility] Endoscopy 08/12/2023 * Family History:?Mother: hodan monroy?Father: , cancer.? * Social History:?Tobacco Use:?Tobacco use other than smoking?Are you an other tobacco user??No ?Tobacco Control (Standard)?Tobacco use:?Current smoker ?When did you start smoking??06/01/1989 ?How often do you smoke cigarettes??Some days, but not every day ?How many cigarettes a day do you smoke??5 or less ?How soon after you wake up do you smoke your first cigarette??31-60 minutes ?Are you interested in quitting??Not ready to quit ???Drugs/Alcohol:?Drugs?Have you used drugs other than those for medical reasons in the past 12 months??Yes ?Marijuana??Yes ?Alcohol Screen?Did you have a drink containing alcohol in the past year??No ?Points?0 ?Interpretation?Negative ???Miscellaneous:?Caffeine: yes, frequency:, 3-5 cups per day. ?Children: yes, 1. ?Exercise: work. ?Marital status: . ?Occupation: [employer] at [employer] * Medications:?TakingfluvoxaMI NE Maleate 100 MG Tablet 1 tablet at bedtime Orally Once a day Vitamin D3 Medication List reviewed and reconciled with the patientTaking fluvoxaMINE Maleate 100 MG Tablet 1 tablet at bedtime Orally Once a day Taking Vitamin D3 Medication List reviewed and reconciled with the patient * Allergies:?N.K.D.A.yes[Aller gies Verified] Objective: * Vitals:?Ht: 5ft 2in, Wt:123, BMI:22.49, Shoe size: 7, BP:120/63mm Hg, Ht-cm: 157.48 cm, Wt-k.79 kg. * Examination: ???Dermatologic: ?SKIN FINDINGS:?Skin shows sign(s) of, inflammation, interdigital maceration, vesicles, pruritus, B/L.?VERRUCA:?STILL, Reveals Multiple ( 4), multi-loculated , mosaic, round, raised, flat-topped, petechial bleeding papule(s), with cauliflower appearance and interruption of skin lines, with pain to lateral compression, and size estimated at 3-7mm diameter, plantar Forefoot, B/L.? Assessment: * Assessment: 1.?Plantar wart - B07.0 ([facility])???Specify :B/L???Notes :Chronic???2.?Right foot pain - M79.671???3.?Left foot pain - M79.672???4.?Tinea pedis of both feet - B35.3???Specify :Acute problem, Uncomplicated (3),Rx drug management (4)??? Plan: * Treatment: 2.?Tinea pedis of both feet? Start Ciclopirox Olamine Cream, 0.77 %, 1 application, Externally, Twice a day to skin of feet including between the toes, 30 days, 120, Refills 3.?? * Procedures:?Wart Treatment:?Procedure?Verruca, as described in exam, were debrided to pin-point bleeding margins with sterile 15 surgical blade, silver nitrate chemocautery applied, recomm. immune-boosting meds such as zinc, recomm. follow up with topical chemosurgical agents, recomm. Wartstick 40 percent Salicylic acid application under occlusion as directed, Pt defers any other forms of tx - 04260.? * Procedure Codes:?63967 Wart Destruction, 1-14 * Preventive Medicine:? ??Counseling:?Tobacco use:?Patient counseled on the dangers of smoking and urged to quit:?06/28/2024 ?Discussion:?-13: Office or other outpatient visit for the evaluation and management of an established patient, which required a medically appropriate history and/or examination and LOW level of DECISION MAKING for: 1 STABLE ACUTE UNCOMPLICATED PROBLEM, 2 OR MORE MINOR PROBLEMS, OR 1 STABLE CHRONIC PROBLEM, THAT POSE(S) A LOW RISK FOR MORBIDITY/MORTALITY. The visit on the day of the encounter encompassed interpreting the data and educating the patient as to the nature of their condition, treatment options available according to their individual PMH, meds, allergies, and overall health/living conditions, as well as any potential risks or complications that may occur from a failure to adhere to, and participate in, the recommended course of therapy. The discussion included a complete verbal, and/or written explanation of the examination results, any x-rays taken, the proposed diagnosis, and outline of the treatment plan. A schedule for future care needs was also explained. The patient verbalized an understanding of the instructions at this time and agreed to be an active participant in their treatment. If the patient should think of any questions or concerns after the visit, I have encouraged the patient to call the office.?Tinea Pedis:?The patient was counseled on the diagnosis, potential etiologies, and treatment options for their skin condition. We discussed the risks and benefits of each option from performing no treatment, to utilizing OTC topical skin creams, prescription topical creams, customized compounded topical medications, and, if necessary, to utilize oral antifungal therapy. We discussed the advantages and disadvantages of each possible treatment and importance for adherence to all the recommended therapies for optimum success and avoid potential complications such as open sore/infection/possible hospitalization. We discussed the potential effectiveness of each topical preparation as well as each ones possible side effects and/or patient medication interactions if oral therapy is selected. Patient questions re: the advantages and disadvantages of each treatment choice, medication use/dosage, successful outcomes, and application consistency were reviewed and the patient verbalized that all answers were clearly understood. The patient was told they can help alleviate symptoms by utilizing moisture absorbant innersoles with activated charcoal and baking soda, applying antifungal sprays daily, aerating toe web spaces at night by putting cotton or lambs wool between the toes, alternating shoe gear daily if possible so they can dry out, changing socks at least once during the day, wearing well-ventilated shoes or sandals. The patient has decided to apply antifungal skin creams to their feet as directed. Rx was sent to their pharmacy at the time of visit.? ??Screening/Special Tests:?Fall Risk?Screening:?No falls in the past year ?FALLS: Screening for Future Fall Risk?Have you had any falls with injury in the past year??No * Follow Up:?prn * Images: * Sign off status: Completed true * Provider:?Jerry Terrazas DPM Date:?2024 Generated for Nneka west/Swetha/Alondra on:?08/03/2024 08:34 AM EST History and Physical Notes * HPI (History of Present Illness) Category Sub-Category Detail Notes Category Not es Skin problems Nature: scaling , redness Location: B/L Duration: several days Course: worse Pt States PCP Visit: DATE: 11/08/2023 Examination Category Sub-Category Detail Notes Category Not es Dermatologic SKIN FINDINGS: Skin shows sign( s) of, inflammation, interdigital maceration, vesicles, pruritus, B/L VERRUCA: STILL, Reveals Multi ple ( 4), multi-loculated , mosaic, round, raised, flat-topped, petechial bleeding papule(s), with cauliflower appearance and interruption of skin lines, with pain to lateral compression, and size estimated at 3-7mm diameter, plantar Forefoot, B/L
--- OUTSIDE RECORDS SUMMARY | 2024-08-03 08:34 | XMS_ITS ---
Author Organization [facility] Address [address] [place] [address] Care Team Providers Care Tank Filler Name Role Phone Samuel Patel MD Primary Care Provider Jerry Yan Unavailable [phone] Allergies No Known Allergies REASON FOR VISIT Wart(s), Skin Problem Medications Medication SIG (Take, Route, Frequency, Duration) Notes Start Date End Date Status fluvoxaMINE Maleate 100 MG 1 tablet at b edtime Orally Once a day for 30 day(s) Active Vitamin D3 Active Ciclopirox Olamine 0.77 % 1 application Externally Twice a day to skin of feet including between the toes for 30 days Active Social History Tobacco Use: Social History [...] yared t Vital Signs Blood pressure systolic 122 mm Hg 08/01/19 25 Blood pressure diastolic 75 mm Hg 025 Height 5ft 2in in 07/31/2024 Weight 123 lbs 07/31/2024 BMI 22.49 kg/m2 07/31/2024 Procedures Procedure Date Ordered Date Performed Result Body Sit e 82509-Fvaz Destruction, 1-14 07/31/2024 N/A Encounters Encounter Location Date Provider Diagnosis [facility] [place] [address] [place] [phone] 07/31/2024 Jerry Terrazas Right foot pain M79.671 ; Plantar wart B07.0 ; Left foot pain M79.672 and Tinea pedis of both feet B35.3 Assessments Encounter Date Diagnosis (ICD Code) Assessment Notes Treatment Notes Treatment Clinical Notes Section Notes 07/31/2024 Right foot pain (ICD-10 - M79.671) 07/31/2024 Plantar wart (ICD-10 - B07.0) Chronic 07/31/2024 Left foot pain (ICD-10 - M79.672) 07/31/2024 Tinea pedis of both feet (ICD-10 - B35.3) Plan Of Treatment Pending Test Test Name Order Date 56961-Bokt Destruction, -07/31/2024 Next Appt Details Follow Up: prn, Reason: Provider Name:Jerry Terrazas , 08/31/2024 03:30:00 PM, [address] [facility], [address] [facility], [place], [address], Procedure Notes * Category Sub-Category Detail Notes [...] defers any other forms of tx - 76114 Progress Notes * Yisel RUSSELLDOB:[birth year] (54 yo F)Acc No.[id number]:07/31/2024 Progress Notes Patient:Yisel FARFAN Provider:?Jerry Terrazas DPM :1970???Age:54 Y???Sex:Female D ate:07/31/2024 Address:[address] [place] [address] Pcp:Samuel Patel MD Subjective: * Chief Complaints: * ???Wart(s)Skin Problem * HPI: ???Skin problems:?Pt States PCP Visit: ?DATE?11/08/2023 ?Treatments:?Medication (Ciclopirox Olamine 0.77 Cream), states adherence to recommended treatment application.? * ROS:?General/Constitutional:?Nausea?denies.?Vomiting?denies.?Hunger Thirst?denies.?Loss appetite?denies.?Chills?denies.?Fatigue?denies.?Fever?denies.?Night Sweats?denies.?Unexplained weight loss?denies.?Unexplained [...] Procedure:?[facility]- bowel obstruction 08/2021[facility]- small bowel obstruction 10/04-10/06/2021[facility] Endoscopy 08/12/2023 * Family History:?Mother: hodan peters.?Father: , cancer.? * Social History:?Tobacco Use:?Tobacco use [...] 1. ?Exercise: work. ?Marital status: . ?Occupation: [employer] at [employer] * Medications:?TakingfluvoxaMI NE Maleate 100 MG Tablet 1 tablet at bedtime Orally Once a day Vitamin D3 Ciclopirox Olamine 0.77 % Cream 1 application Externally Twice a day to skin of feet including between the toes Medication List reviewed and reconciled with the patientTaking fluvoxaMINE Maleate 100 MG Tablet 1 tablet at bedtime Orally Once a day Taking Vitamin D3 Taking Ciclopirox Olamine 0.77 % Cream 1 application Externally Twice a day to skin of feet including between the toes Medication List reviewed and reconciled with the patient * Allergies:?N.K.D.A.yes[Aller gies Verified] Objective: * Vitals:?Ht: 5ft 2in, Wt:123, BMI:22.49, Shoe size: 7, BP:122/75mm Hg, Ht-cm: 157.48 cm, Wt-k.79 kg. * Examination: ???Dermatologic: ?SKIN FINDINGS:?Skin shows approximately 80-85 percent LESS, sign(s) of, inflammation, interdigital maceration, vesicles, pruritus, B/L.?VERRUCA:?STILL, Reveals Multiple ( 4), multi-loculated , mosaic, round, raised, flat-topped, petechial bleeding papule(s), with cauliflower appearance and interruption of skin lines, with pain to lateral compression, and size estimated at 3-7mm diameter, plantar Forefoot, B/L.? Assessment: * Assessment: 1.?Plantar wart - B07.0 ([facility])???Specify :B/L???Notes :Chronic???2.?Right foot pain - M79.671???3.?Left foot pain - M79.672???4.?Tinea pedis of both feet - B35.3???Specify :Acute problem, Stable Response to treatment - Improvement??? Plan: * Treatment: * Procedures:?Wart Treatment:?Procedure?Verruca, as described in exam, were debrided to pin-point bleeding margins with sterile 15 surgical blade, silver nitrate chemocautery applied, recomm. immune-boosting meds such as zinc, recomm. follow up with topical chemosurgical agents, recomm. Wartstick 40 percent Salicylic acid application under occlusion as directed, Pt defers any other forms of tx - 49443.? * Procedure Codes:?70205 Wart Destruction, 1-14 * Preventive Medicine:? ??Counseling:?Tobacco use:?Patient counseled on the dangers of smoking and urged to quit:?06/28/2024 ?Discussion:?-12: Office or other outpatient visit for the evaluation and management of an established patient, which required a medically appropriate history and/or examination and STRAIGHTFORWARD level of MEDICAL DECISION MAKING, 1 SELF-LIMITED OR MINOR PROBLEM, MINIMAL- NO AMOUNT/COMPLEXITY OF DATA TO BE REVIEWED/ANALYZED, AND MINIMAL RISK OF COMPLICATION/MORBIDITY. The visit on the day of the [...] encouraged the patient to call the office.?Tinea Pedis:?Given recent successful results to treatment, The patient is to cont the rx cream as directed.? ??Screening/Special Tests:?Fall Risk?Screening:?No falls in the past [...] Detail Notes Category Not es Skin problems Treatments: Medication (Cicl opirox Olamine 0.77 Cream), states adherence to recommended treatment application Pt States PCP Visit: DATE: 11/08/2023 Examination Category Sub-Category Detail Notes Category Not es Dermatologic SKIN FINDINGS: Skin shows appro ximately 80-85 percent LESS, sign(s) of, inflammation, interdigital maceration, vesicles, pruritus, B/L VERRUCA: STILL, Reveals Multi ple ( 4), multi-loculated , mosaic, round, raised, flat-topped, petechial bleeding papule(s), with cauliflower appearance and interruption of skin lines, with pain to lateral compression, and size estimated at 3-7mm diameter, plantar Forefoot, B/L
--- OUTSIDE RECORDS SUMMARY | 2024-08-03 08:35 | XMS_ITS | Patient Health Record ---
Author Organization [place] [facility] Address [address] [place] [address] Care Team Providers Care Budget Manager Name Role Phone Samuel Patel MD Primary Care Provider Jerry Yan Unavailable [phone] Allergies No Known Allergies Reason For Referral [...] between the toes for 30 days Active Immunizations Vaccine Route Administration Date Status [...] in quitting? Not ready to yared t Problems Problem Type SNOMED Code ICD Code Onset Dates Problem Status W/U Status Risk Notes Problem Plantar wart (49103543) Plantar wart (B07.0) Active confirmed Chronic Problem 783356554 Tinea unguium (B35.1) Active confirmed Vital Signs Blood pressure diastolic 75 mm Hg 07/31/2024 Height 5ft 2in in 07/31/2024 Blood pressure systolic 122 mm Hg 07/31/2024 Weight 123 lbs 07/31/2024 BMI 22.49 kg/m2 07/31/2024 Procedures Procedure Date Ordered Date Performed Result Body Sit e 50997-EMVCMZY NAIL, 6 OR MORE 08/05/2023 N/A 33676-Jfhy Destruction, -14 08/05/2023 N/A 07839-Mkjd Destruction, -14 09/09/2023 N/A 79418-Yvbr Destruction, -14 11/03/2023 N/A 37316-Rejl Destruction, -14 12/01/2023 N/A 95664-Bpwy Destruction, -14 12/27/2023 N/A 62578-Sgmj Destruction, -14 01/26/2024 N/A 10013-Dtql Destruction, -14 02/24/2024 N/A 56463-Vfxs Destruction, -14 03/27/2024 N/A 09069-Dned Destruction, -14 04/24/2024 N/A 50660-Uqko Destruction, -14 05/29/2024 N/A 31971-Lzvs Destruction, -14 06/28/2024 N/A 30014-Vkfy Destruction, -14 07/31/2024 N/A Encounters Encounter Location Date Provider Diagnosis [facility] [address] 08/05/2023 Jerry Mk Right foot pain M79.671 ; Plantar wart B07.0 ; Left foot pain M79.672 ; Tinea unguium B35.1 ; Pain in right toe(s) M79.674 and Pain in left toe(s) M79.675 [facility] [address] 09/09/2023 Jerry Mk Right foot pain M79.671 ; Plantar wart B07.0 and Left foot pain M79.672 [facility] [address] [address] 11/03/2023 Jerry Mk Right foot pain M79.671 ; Plantar wart B07.0 and Left foot pain M79.672 [facility] [address] [address] 12/01/2023 Jerry Mk Right foot pain M79.671 ; Plantar wart B07.0 ; Left foot pain M79.672 ; Pain in left foot M79.672 ; Pain in left ankle and joints of left foot M25.572 ; Bursitis of left foot M77.52 ; Hallux valgus (acquired), left foot M20.12 and Hallux limitus of left foot M20.5X2 [address] [address] 12/27/2023 Jerry Mk Right foot pain M79.671 ; Plantar wart B07.0 and Left foot pain M79.672 [facility] [address] [place] [address] 01/26/2024 Jerry Mk Right foot pain M79.671 ; Plantar wart B07.0 and Left foot pain M79.[address] [address] 02/24/2024 Jerry Mk Right foot pain M79.671 ; Plantar wart B07.0 and Left foot pain M79.672 [facility] [address] [address] 03/27/2024 Jerry Mk Right foot pain M79.671 ; Plantar wart B07.0 and Left foot pain M79.[address] [address] 04/24/2024 Jerry Mk Right foot pain M79.671 ; Plantar wart B07.0 and Left foot pain M79.[address] [address] 05/29/2024 Jerry Terrazas Right foot pain M79.671 ; Plantar wart B07.0 and Left foot pain M79.672 [facility] [address] [place] [address] 06/28/2024 Jerryrosalind MauricioMk Right foot pain M79.671 ; Plantar wart B07.0 ; Left foot pain M79.672 and Tinea pedis of both feet B35.3 [place] [facility] [address] [place] [address] 07/31/2024 Jerry Terrazas Right foot pain M79.671 ; Plantar wart B07.0 ; Left foot pain M79.672 and Tinea pedis of both feet B35.[address] [address] 09/09/2023 Jerry Terrazas [address] [address] 12/06/2023 Jerry Mk [address] [address] 05/29/2024 Jerry Mk [address] [address] 05/30/2024 Jerry Mk Assessments Encounter Date Diagnosis (ICD Code) Assessment Notes Treatment Notes Treatment Clinical Notes Section Notes 08/05/2023 Plantar wart (ICD-10 - B07.0) Chronic [...] 04/24/2024 Right foot pain (ICD-10 - M79.671) 05/29/2024 Plantar wart (ICD-10 - B07.0) Chronic 05/29/2024 Right foot pain (ICD-10 - M79.671) 06/28/2024 Plantar wart (ICD-10 - B07.0) Chronic 06/28/2024 Right foot pain (ICD-10 - M79.671) 07/31/2024 Plantar wart (ICD-10 - B07.0) Chronic 07/31/2024 Right foot pain (ICD-10 - M79.671) 07/31/2024 Left foot pain (ICD-10 - M79.672) 06/28/2024 Left foot pain (ICD-10 - M79.672) 05/29/2024 Left foot pain (ICD-10 - M79.672) 04/24/2024 Left foot pain (ICD-10 - M79.672) 03/27/2024 Left foot pain (ICD-10 - M79.672) 02/24/2024 Left foot pain (ICD-10 - M79.672) 01/26/2024 Left foot pain (ICD-10 - M79.672) 12/27/2023 Left foot pain (ICD-10 - M79.672) 12/01/2023 Left foot pain (ICD-10 - M79.672) 11/03/2023 Left foot pain (ICD-10 - M79.672) 09/09/2023 Left foot pain (ICD-10 - M79.672) 08/05/2023 Left foot pain (ICD-10 - M79.672) 08/05/2023 Tinea unguium (ICD-10 - B35.1) 12/01/2023 Pain in left foot (ICD-10 - M79.672) 07/31/2024 Tinea pedis of both feet (ICD-10 - B35.3) 06/28/2024 Tinea pedis of both feet (ICD-10 - B35.3) 12/01/2023 Pain in left ankle and joints [...] X ray : Foot, left 3V 12/01/2023 06402-DRGURYP NAIL, 6 OR MORE 08/05/2023 65463-EBPQISP NAIL, 6 OR MORE 04/03/2021 52556-JWYTVXP NAIL, 6 OR MORE 07/25/2020 59794-HDBTUZK NAIL, 6 OR MORE 09/11/2021 63039-FDDFMSB NAIL, 6 OR MORE 07/01/2022 52245-UVDQXKV NAIL, 6 OR MORE 06/18/2021 22251-DSBQQET NAIL, 6 OR MORE 04/01/2023 59476-Jdax Destruction, 1-14 05/03/2023 41995-Rxlm Destruction, 1-14 06/03/2023 10861-Hawc Destruction, 1-14 07/05/2023 19830-Qjga Destruction, 1-14 08/05/2023 72516-Efzb Destruction, 1-14 06/18/2021 31311-Vmzt Destruction, 1-14 08/07/2021 59084-Fyyr Destruction, 06-1309/11/2021 06486-Lrin Destruction, 06-1307/30/2022 53078-Jobc Destruction, 06-1308/31/2022 38149-Egnc Destruction, 06-1310/12/2022 10402-Shfa Destruction, 06-1311/16/2022 76515-Jrcg Destruction, 06-1312/14/2022 32247-Enat Destruction, 06-1301/21/2023 65961-Sxle Destruction, 06-1302/24/2023 11312-Kyyu Destruction, 06-1304/01/2023 42687-Nqog Destruction, 06-1310/16/2021 48521-Rqav Destruction, 06-1312/17/2021 31969-Gnbz Destruction, 06-1301/29/2022 27263-Unyh Destruction, 06-1303/04/2022 79292-Mwli Destruction, 06-1304/09/2022 24335-Zcyj Destruction, 06-1305/20/2022 21842-Msdc Destruction, 06-1307/01/2022 92821-Ynhf Destruction, 06-1307/25/2020 28149-Hiee Destruction, 06-1308/21/2020 24545-Odhf Destruction, 06-1309/12/2020 61461-Lsvm Destruction, 06-1310/03/2020 07916-Rukm Destruction, 06-1310/24/2020 66254-Hqdr Destruction, 06-1311/25/2020 75243-Acpw Destruction, 06-1312/19/2020 95989-Tyaq Destruction, 06-1301/13/2021 53932-Dfhw Destruction, 06-1302/19/2021 62608-Cipn Destruction, 06-1304/03/2021 84900-Sbjq Destruction, 06-1304/28/2021 07408-Kpcu Destruction, 06-1306/27/2020 03907-Syxj Destruction, 06-1309/09/2023 34979-Wxay Destruction, 06-1311/03/2023 19101-Fzkf Destruction, 06-1312/01/2023 62351-Mgjj Destruction, 06-1312/27/2023 34503-Sbvq Destruction, 06-1301/26/2024 79608-Ycxf Destruction, 06-1302/24/2024 44776-Ubdf Destruction, 14 03/27/2024 33167-Yppv Destruction, 14 04/24/2024 86733-Prfn Destruction, 14 05/29/2024 70364-Ynzi Destruction, 14 06/28/2024 50106-Tgof Destruction, 14 07/31/2024 Next Appt Details Provider Name:Jerry Hoffier , 08/31/2024 03:30:00 PM, [address] [facility], [facility] [address], [place], [address], Insurance Providers Payer Name Payer Address Payer Phone Subscriber Number Group Number Insured Name Patient Relationship to Insured Coverage Start Date Coverage End Date [facility] [address] [place] [address] [id number] Yisel Mejias Self - patient is the insured Medical (General) History Medical History History ICD Code Anxiety Back,Hip,and Knee pain Broken bones Chicken pox Depression Headaches Warts Surgical History Surgery Date(Month/Year) hysterectomy 2005 lumpectomy 2019 lumpectomy 12/2022 Hospitalization History Reason Date(Month/Year) [facility] [place] Endoscopy 08/12/2023 Espitia- small bowel obstruction 10/04- 022 Espitia- bowel obstruction 08/2021
--- OUTSIDE RECORDS SUMMARY | 2024-08-03 08:35 | XMS_ITS ---
Author Organization [facility] Address [address] [place] [address] Care Team Providers Care Electronics Technology Department Chair Name Role Phone Samuel Patel MD Primary Care Provider Jerry Yan [phone] REASON FOR VISIT Wart stick Encounters En[facility] [address] [facility]/30/2024 Jerry Terrazas Plan Of Treatment Next Appt Details Provider Name:Jerry Terrazas , 08/31/2024 03:30:00 PM, [address] [place] [address], [phone], Progress Notes * Yisel RUSSELLDOB:[birth year] (54 yo F)Acc No.[id number]:05/30/2024 Patient:?Yisel RUSSELL :1970???Age:54 Y???Sex:Female Address:[address] [place] [address], [address] * true * Date:? Generated for Nneka west/Swetha/Demetriussmitting on:?08/03/2024 08:34 AM EST
[2024-08-21 14:43] VITALS: BMI 22.3
[2024-08-23 11:21] VITALS: BMI 21.5
[2024-08-23 11:26] VITALS: BP 107/72; PULSE 68; RESP 18; TEMP 36.7; O2SAT 97
[2024-08-23] MEDS: Lactated Ringers 1,000 ML 100 ML IVCONT (11:38)
--- NOTE | 2024-08-23 12:44 | P.HPSUR_ITS ---
Pre-Procedural Eval Section A - 24 Hr Update-Section A only Date of Service: 08/23/24 Section B - Complete if H&P > 30 days Chief Complaint: Personal history of other diseases of the digestiv Relevant Family History (Specify if Yes): No Relevant Social History: Tobacco Use Present Medications: see Short Stay Collaborative assessment Medical History: Significant History (Partial obstruction of small intestine Depression Anxiety) History of Previous Operations: Relevant previous surgery/procedure and date(s) (Status post right breast lumpectomy (01/25/23) History of colonoscopy (05/2019) History of left breast biopsy (02/02/19) Hx of hysterectomy (2005) Hx of lumpectomy (02/13/19)) Allergies: Allergies Allergy/AdvReac Type Severity Reaction Status Date / Time No Known Allergies Allergy Verified 05/05/24 15:41 Review of Systems Sugical H&P ROS: Negative: Constitution, Cardiovascular, Respiratory, Neurological, Psychiatric, Hem-Onc, Allergic/Immunologic, Gastrointestinal, Genitourinary, Musculoskeletal, Integumentary, Endocrine and Eyes/Ears/N ose/Throat Exam Surgical H&P Exam: Normal: HEENT, Normal: Heart, Normal: Lungs, Normal: Extremities, Normal: Abdomen, Normal: Skin and Normal: Neurological Plan Diagnosis/Plan: Unchanged I have reviewed the history and physical and performed a pertinent physical examination on my patient. No changes have occurred unless specified. Time Spent With Patient Time: Total time managing care of this patient today ____ minutes.
--- NOTE | 2024-08-23 12:53 | P.CONAN_ITS ---
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) History of colitis (Acute) Duodenitis (Acute) Hiatal hernia (Acute) Schatzki's ring (Acute) Gastritis (Acute) Marijuana use- Last this morning Smoker- cigarillos- Last this morning Past Medical History Medical History History of colitis Duodenitis Hiatal hernia Schatzki's ring Gastritis Partial obstruction of small intestine Depression Anxiety Family History Family History Father Mesothelioma Emphysema lung Maternal Grandmother Heart attack Paternal Aunt Aneurysm Family history of problems with anesthesia: No Surgical History Surgical History History of esophagogastroduodenoscopy (EGD) Status post right breast lumpectomy (01/25/23) History of colonoscopy (05/2019) History of left breast biopsy (02/02/19) Hx of hysterectomy (2005) Hx of lumpectomy (02/13/19) History of Problems with Anesthesia: No Social History Social History Household Members: Significant Other Housing: House Are you a primary care administrative tech to a significant other at home: No Do you presently have visiting nurse or other home services: No Alcohol intake: former Patient Tobacco Use Status: Current everyday Tobacco user Tobacco use type: Cigar Cigarette Packs Per Day: 1 Cigarettes Per Day: 2 Use of substances other than those prescribed or required for medical reasons: Yes Substance Use Type: Marijuana Substance Use Frequency: Daily Have you been hit, kicked, punched, or otherwise hurt by someone within the past year? If so, by whom?: No Are you DNR?: No Advance Directives: No Advance Directives Information Provided: Yes Advance Directives on File: No Recently lost weight without trying: No Nutrition Risks: No Nutritional Risk Patient : No Current occupational status: employed Meds Allergies Allergy/AdvReac Type Severity Reaction Status Date / Time No Known Allergies Allergy Verified 05/05/24 15:41 Active Medications: Current Medications Lactated Ringer's (Lr) 1,000 mls @ 100 mls/hr IVCONT .Q10H ISSA Last Admin: 08/23/24 11:38 Dose: 100 mls/hr Home Medications ?Medication ?Instructions ?Recorded ?Confirmed ?Last Taken ?Type cholecalciferol (vitamin D3) 25 1 cap PO DAILY 06/28/20 01/04/24 Unknown History mcg (1,000 unit) capsule (Vitamin D3) fluvoxamine 50 mg tablet 3 tab PO DAILY 06/28/20 08/21/24 Unknown History Exam Height,Weight and Vital Signs: Height 5 ft 2 in Weight 53.3 kg Last Vital Signs Temp 98.0 F 08/23/24 11:26 Pulse 68 08/23/24 11:26 Resp 18 08/23/24 11:26 BP 107/72 08/23/24 11:26 Pulse Ox 97 08/23/24 11:26 O2 Del Method Room Air 08/23/24 11:26 Airway Mallampati Class: II TM Dist: >3cm Neck ROM: Full Partial: Upper Loose/Missing/Broken Teeth: Yes (Partial dentures top. Denies broken or loose teeth) Heart: RRR Lungs: CTAB Assessment and Plan Assessment Anesthesia Assessment: Anesthesia Plan Discussed and Chart Reviewed Final Anesthetic Review Family History of Problems with Anesthesia: No History of Problems with Anesthesia: No NPO: Yes ASA Class: III Final Preanesthetic Review: No Changes in Pt Med Stat, Meds/Allgs Chart Reviewed, Consent Obtained/Reviewed and Anes Risks/Benef Reviewed Patient Risk: Intermediate Procedure Risk: Low Assessment/Block/Sedation in SS: Assess/Block/Sedation-SS Anesthetic Plan Anesthetic Plan: TIVA Disposition: Standard PACU
--- NOTE | 2024-08-23 13:56 | P.OPN-COLO_ITS ---
Colonoscopy Operative Note Operative Note Date of Service: 08/23/24 Narrative: Operative Information Procedure Description: Colonoscopy Indication: hx of non specific colitis Anesthesia: MAC COLONOSCOPY Instrument: Olympus variable stiffness pediatric scope 190L Colonoscopy Monitoring: Vital signs and clinical assessment, continuous EKG monitoring, Pulse oximetry, Carbon Dioxide monitoring and blood pressure monitoring were done throughout the procedure. Colon withdrawal time was 11 minutes. Procedure: The patient was placed in the left lateral decubitis position and pre-procedure medications were administered. After a digital rectal examination of the ano-rectum, the video colonoscope was inserted into the rectum and advanced through the colon to the cecum/TI. The colonoscope was slowly withdrawn in a retrograde panoramic fashion and the colon mucosa was carefully examined including a retroflexed view of the rectum. Findings and interventions are described below. Procedure Difficulty: easy Findings: Terminal Ileum-normal, bx taken random bx taken from right left and rectum Cecum:normal Ascending Colon: normal Transverse Colon -normal Descending Colon:normal Sigmoid Colon: normal Rectum: Retroflexion with small internal hemorrhoids seen, grade I Anorectum - normal Intervention: cold forceps Colon preparation: Halliday Bowel Preparation Scale Right colon; 2 Transverse colon: 2 Left colon; 2 (0 = Unprepared colon segment with mucosa not seen due to solid stool that cannot be cleared. 1 = Portion of mucosa of the colon segment seen, but other areas of the colon segment not well seen due to staining, residual stool and/or opaque liquid. 2 = Minor amount of residual staining, small fragments of stool and/or opaque liquid, but mucosa of colon segment seen well. 3 = Entire mucosa of colon segment seen well with no residual staining, small fragments of stool or opaque liquid) Impression and Post Procedure Diagnosis: internal hemorrhoids Plan: High fiber diet leaflet Avoid straining at stool, epsom salts and sitz bath, anusol supps or cream Repeat Colonoscopy in 10 years or earlier if clinically indicated Above findings were reviewed with the patient and relevant handouts were provided if indicated.
[2024-08-23 14:03] VITALS: BP 80/51; PULSE 75; RESP 18; TEMP 36.1; O2SAT 94
[2024-08-23 14:18] VITALS: BP 108/75; PULSE 97; RESP 18; TEMP 36.1; O2SAT 97
== END 2024-08-23 14:39 | disposition home or self-care (01) ==
PROVIDERS: PCP Internal Medicine; Visit Provider Internal Medicine Gastroenterology
PROC: 0DJD8ZZ Inspection of Lower Intestinal Tract, Via Natural or Artificial Opening Endoscopic (ICD-10-PCS; CPT 45378; principal; 2024-08-23 13:00)
DX: Z12.11 Encounter for screening for malignant neoplasm of colon (principal); Z87.19 Personal history of other diseases of the digestive system; K64.0 First degree hemorrhoids; F32.A Depression, unspecified; F41.9 Anxiety disorder, unspecified; K29.80 Duodenitis without bleeding; K44.9 Diaphragmatic hernia without obstruction or gangrene; K29.70 Gastritis, unspecified, without bleeding; K22.2 Esophageal obstruction; Z79.899 Other long term (current) drug therapy; Z98.890 Other specified postprocedural states; Z90.710 Acquired absence of both cervix and uterus; F17.290 Nicotine dependence, other tobacco product, uncomplicated
CPT/HCPCS: 45380; 88305; J2003; J2704

== ENCOUNTER → 2024-08-23 09:47 | Outpatient (BNV) | payer BC, SELFPAY | PROVIDERS: PCP Internal Medicine; Visit Provider Internal Medicine Gastroenterology | DX: Z87.19 Personal history of other diseases of the digestive system (principal); K64.8 Other hemorrhoids | CPT/HCPCS: 45380 ==

== ENCOUNTER 2024-10-12 15:25 | Outpatient (AMB) | payer BC, SELFPAY ==
--- NOTE | 2024-10-12 15:28 | MHC.OFFVIS ---
Vital Signs 10/12/24 15:38 Height 5 ft 2 in Weight 119 lb 0.794 oz BMI 21.8 BP 110/70 Blood Pressure Location Lt brachial Position Sitting Intake Visit Reasons: 6 month breast exam Intake Note: Patient is seen in office for 6 month follow up visit, breast exam. Pt c/o: feels a lump in the left breast towards the chest mm:05/22/24 Director Of Media Required: No Airbrush Artist Photography: Airbrush Artist Photography Present Accompanied by: Self / Same As Patient Allergies No Known Allergies Allergy (Verified 10/12/24 15:37) HPI Comments Details: 54-year-old female patient returning for routine breast examination following diagnosis of left breast DCIS with microinvasion diagnosed in 03/19/2019. She noted a lump in the left breast in 01/17/2019 and mild mammography revealed suspicious coarse calcifications in the upper outer quadrant an ultrasound revealed a suspicious density measuring 1.8 x 1.3 cm corresponding to the palpable mass. Subsequent ultrasound-guided core biopsy on 02/02/2019 revealed DCIS, high nuclear grade solid type with comedonecrosis and microcalcifications. One area was suspicious for microinvasion, ER/KS negative. She subsequently underwent a left breast lumpectomy with sentinel node biopsy on 02/13/2019. Margins were negative for DCIS. Three sentinel nodes were negative for metastatic disease. (pT1 [place], pN0). HER2 was positive. She underwent radiation therapy at [facility] which was completed in 05/19/2019. She underwent several biopsies in the both the left and right breast all of which were benign. Her last mammogram of 05/22/2024 revealed no mammographic evidence of malignancy (BI-RADS 2). [facility] Medical History History of colitis Duodenitis Hiatal hernia Schatzki's ring Gastritis Partial obstruction of small intestine Depression Anxiety Surgical History History of esophagogastroduodenoscopy (EGD) Status post right breast lumpectomy (01/25/23) History of colonoscopy (07/26/24) History of left breast biopsy (02/02/19) Hx of hysterectomy (2005) Hx of lumpectomy (02/13/19) Family History Father Mesothelioma Emphysema lung Maternal Grandmother Heart attack Paternal Aunt Aneurysm Social History Household Members: Significant Other Housing: House Are you a primary manager critical care unit to a significant other at home: No Do you presently have visiting nurse or other home services: No Alcohol intake: former Patient Tobacco Use Status: Current everyday Tobacco user Tobacco use type: Cigar Cigarette Packs Per Day: 1 Cigarettes Per Day: 2 Substance Use Type: Marijuana Current occupational status: employed Review of Systems Const All systems reviewed & are unremarkable except as noted in HPI and below Physical Exam Const General: cooperative and no acute distress Chest Other: Right breast: Well-healed incision with no redness or discharge. No new palpable mass, skin change, nipple discharge or enlarged lymph nodes. Left breast with no new palpable mass, skin change, nipple discharge, or enlarged lymph nodes. GI Inspection: Yes normal to inspection Palpation (GI): Soft to palpation, nontender, no guarding and not rigid Skin Other: Warm, dry, no rash Assessment & Plan Assessment & Plan (1) DCIS (ductal carcinoma in situ) of breast: Code(s): D05.10 - Intraductal carcinoma in situ of unspecified breast Category: Medical Qualifiers: Laterality: left Qualified Code(s): D05.12 - Intraductal carcinoma in situ of left breast (2) At high risk for breast cancer: Code(s): Z91.89 - Other specified personal risk factors, not elsewhere classified Category: Medical Plan 54-year-old female patient with a prior history of ductal carcinoma in-situ with microinvasion status post lumpectomy and sentinel node biopsy. ER/KS negative. She subsequently underwent radiation therapy. Exam today reveals no suspicious findings in either breast. There is some scar tissue in the upper outer quadrant of the left breast but no other suspicious findings. Her most recent mammogram dated 05/22/2024 revealed no mammographic evidence of malignancy (BI-RADS 2). She will follow up in 6 months for routine breast examination. Coding Level of Care Code Est Pt Level 3 (57362) Complex EM visit Add On G2211 Diagnoses Ductal carcinoma in situ (DCIS) of left breast D05.12 Laterality: left At high risk for breast cancer Z91.89
[2024-10-12 15:38] VITALS: BP 110/70; BMI 21.8
--- OUTSIDE RECORDS SUMMARY | 2024-10-12 15:54 | XMS_ITS ---
Author Organization [facility] Address [address] [place] [address] Care Team Providers Care Visitor Information Assistant Name Role Phone Samuel Patel MD Primary Care Provider UnavailJerry Pagan Unavailable [phone] REASON FOR VISIT Wart(s) Medications Medication SIG (Take, Route, Frequency, Duration) Notes Start Date End Date Status Ciclopirox Olamine 0.77 % 1 application Externally Twice a day to skin of feet including between the toes for 30 days Active Vitamin D3 Active fluvoxaMINE Maleate 100 MG 1 tablet at b edtime Orally Once a day for 30 day(s) Active Social History Tobacco Use: Social History Observation Description Date Details (start date - stop date) Current Smoker 06/01/1989 - NA Tobacco use other than smoking: Question Answer [...] in quitting? Not ready to yared t Additional Findings: Tobacco user Modera te cigarette smoker (10-19 cigs/day) AUDIT-C (Standard) Question Answer Notes Did you have a drink containing alcohol in the p ast year? No Points 0 Interpretation Negative Vital Signs Height 5ft 2in in 10/04/2024 Weight 123 lbs 10/04/2024 BMI 22.49 kg/m2 10/04/2024 Blood pressure systolic 108 mm Hg 10/05/19 25 Blood pressure diastolic 71 mm Hg 025 Heart Rate 58 /min 10/04/2024 Procedures Procedure Date Ordered Date Performed Result Body Sit e 50390-Pwgb Destruction, 1-14 10/04/2024 N/A Encounters Encounter Location Date Provider Diagnosis [facility] [place] [address] [facility] [address] [place] [address] 10/04/2024 Jerryrosalind MauricioMk Right foot pain M79.671 ; Plantar wart B07.0 and Left foot pain M79.672 Assessments Encounter Date Diagnosis (ICD Code) Assessment Notes Treatment Notes Treatment Clinical Notes Section Notes 10/04/2024 Right foot pain (ICD-10 - M79.671) 10/04/2024 Plantar wart (ICD-10 - B07.0) Chronic 10/04/2024 Left foot pain (ICD-10 - M79.672) Plan Of Treatment Pending Test Test Name Order Date 62276-Qmym Destruction, -10/04/2024 Next Appt Details Follow Up: prn, Reason: Provider Name:Jerry Carrasco Mk , 11/09/2024 03:30:00 PM, [address] [facility], [place] [address], [place], [address], Procedure Notes * Category Sub-Category Detail Notes [...] defers any other forms of tx - 43868 Progress Notes * Yisel RUSSELLDOB:[birth year] (54 yo F)Acc No.[id number]:10/04/2024 Progress Notes Patient:?Yisel RUSSELL Provider:?Jerry Terrazas DPM :1970???Age:54 Y???Sex:Female D ate:10/04/2024 Address:[address] [place] [address] Pcp:Samuel Patel MD Subjective: * Chief Complaints: [...] History:? * Surgical History:?hysterecto my 2005lumpectomy 2019lumpectomy olonoscopy 07/2024 * Hospitalization/Major Diagno stic Procedure:?Espitia- bowel obstruction [...] you interested in quitting??Not ready to quit ?Additional Findings: Tobacco user?Moderate cigarette smoker (10-19 cigs/day) ???Drugs/Alcohol:?Drugs?Have you used drugs other than those for medical reasons in the past 12 months??Yes ?Marijuana??Yes ???Miscellaneous:?Caffeine: yes, frequency:, 3-5 cups per day. ?Children: yes, 1. ?Exercise: work. ?Marital status: . 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 ???Drug/Alcohol:?AUDIT-C (Standard)?Did you have a drink containing alcohol in the past year??No ?Points?0 ?Interpretation?Negative * Medications:?TakingfluvoxaMI NE Maleate 100 MG Tablet [...] Allergies:?yes[Allergies Ruth ified] Objective: * Vitals:?Ht:5ft 2in, Wt:123, BMI:22.49, Shoe size:7, BP:sittin/71mm Hg, HR:58/min, Ht-cm: 157.48 cm, Wt-k.79 kg. * Examination: ???Dermatologic: ?VERRUCA:?STILL, Reveals Multiple [...] defers any other forms of tx - 20433.? * Procedure Codes:?91113 Wart Destruction, 1-14 * Follow Up:?prn * Images: * Sign off status: Completed true * Provider:?Jerry Terrazas DPM Date:?2024 Generated for Nneka west/Swetha/Alondra on:?10/12/2024 03:54 PM EDT History and Physical Notes * HPI (History [...]
--- OUTSIDE RECORDS SUMMARY | 2024-10-12 15:54 | XMS_ITS | Patient Health Record ---
Author Organization [facility] Address [address] [facility] [place] [address] Care Team Providers Care Life Trainer Name Role Phone Samuel Patel MD Primary Care Provider Jerry Yan Unavailable [phone] Allergies No Known Allergies Reason For Referral [...] ast year? No Points 0 Interpretation Negative Problems Problem Type SNOMED Code ICD Code Onset Dates Problem Status W/U Status Risk Notes Problem Plantar wart (16702862) Plantar wart (B07.0) Active confirmed Chronic Problem Onychomycosis (288398089) Tinea unguium (B35.1) Active confirmed Vital Signs Heart Rate 58 /min 10/04/2024 Blood pressure diastolic 71 mm Hg 10/04/2024 Height 5ft 2in in 10/04/2024 Blood pressure systolic 108 mm Hg 10/04/2024 Weight 123 lbs 10/04/2024 BMI 22.49 kg/m2 10/04/2024 Procedures Procedure Date Ordered Date Performed Result Body Sit e 34993-Rgri Destruction, -11/03/2023 N/A 38627-Qdnb Destruction, -14 12/01/2023 N/A 84317-Lcwp Destruction, -12/27/2023 N/A 20355-Lyxn Destruction, -01/26/2024 N/A 29927-Cekj Destruction, -14 02/24/2024 N/A 46098-Umem Destruction, -14 03/27/2024 N/A 83232-Lflo Destruction, -14 04/24/2024 N/A 68491-Pzai Destruction, 14 05/29/2024 N/A 83590-Bgef Destruction, -14 06/28/2024 N/A 02254-Ddek Destruction, -14 07/31/2024 N/A 05346-Nlua Destruction, -14 08/31/2024 N/A 55964-Qkzd Destruction, -14 10/04/2024 N/A Encounters Encounter Location Date [facility] [address] [address] 11/03/2023 Jerry Mk Right foot pain M79.671 ; Plantar wart B07.0 and Left foot pain M79.672 [facility] [address] [address] 12/01/2023 Jerry Mk Right foot pain M79.671 ; Plantar wart B07.0 ; Left foot pain M79.672 ; Pain in left foot M79.672 ; Pain in left ankle and joints of left foot M25.572 ; Bursitis of left foot M77.52 ; Hallux valgus (acquired), left foot M20.12 and Hallux limitus of left foot M20.5X2 [facility] [address] [place] [address] 12/27/2023 Jerry Mk Right foot pain M79.671 ; Plantar wart B07.0 and Left foot pain M79.[address] [address] 01/26/2024 Jerry Mk Right foot pain M79.671 ; Plantar wart B07.0 and Left foot pain M79.[address] [address] 02/24/2024 Jerry Mk Right foot pain M79.671 ; Plantar wart B07.0 and Left foot pain M79.[address] [address] 03/27/2024 Jerry Mk Right foot pain M79.671 ; Plantar wart B07.0 and Left foot pain M79.[address] [address] 04/24/2024 Jerry Mk Right foot pain M79.671 ; Plantar wart B07.0 and Left foot pain M79.[address] [address] 05/29/2024 Jerry Mk Right foot pain M79.671 ; Plantar wart B07.0 and Left foot pain M79.[address] [address] 06/28/2024 Jerry Mk Right foot pain M79.671 ; Plantar wart B07.0 ; Left foot pain M79.672 and Tinea pedis of both feet B35.[address] [address] 07/31/2024 Jerry Terrazas Right foot pain M79.671 ; Plantar wart B07.0 ; Left foot pain M79.672 and Tinea pedis of both feet B35.3 [facility] [address] [address] 08/31/2024 Jerry Mauriciounier Right foot pain M79.671 ; Plantar wart B07.0 and Left foot pain M79.672 [facility] [address] [address] 10/04/2024 Jerry Terrazas Right foot pain M79.671 ; Plantar wart B07.0 and Left foot pain M79.672 [facility] [address] [address] 12/06/2023 Jerry Mk [facility] [address] [place] [address] 05/29/2024 Jerry Terrazas [address] [address] 05/30/2024 Jerryrosalind MauricioMk Assessments Encounter Date Diagnosis (ICD Code) Assessment Notes Treatment Notes Treatment Clinical Notes Section Notes 11/03/2023 Plantar wart (ICD-10 - B07.0) Chronic [...] 07/31/2024 Right foot pain (ICD-10 - M79.671) 08/31/2024 Plantar wart (ICD-10 - B07.0) Chronic 08/31/2024 Right foot pain (ICD-10 - M79.671) 10/04/2024 Plantar wart (ICD-10 - B07.0) Chronic 10/04/2024 Right foot pain (ICD-10 - M79.671) 10/04/2024 Left foot pain (ICD-10 - M79.672) 08/31/2024 Left foot pain (ICD-10 - M79.672) 07/31/2024 Left foot pain (ICD-10 - M79.672) [...] 11/03/2023 Left foot pain (ICD-10 - M79.672) 12/01/2023 Pain in left foot (ICD-10 - M79.672) 07/31/2024 Tinea pedis of both feet (ICD-10 - B35.3) 06/28/2024 Tinea pedis of both feet (ICD-10 - B35.3) 12/01/2023 Pain in left ankle and joints of left foot (ICD-10 - M25.572) 12/01/2023 Bursitis of left foot (ICD-10 - M77.52) 12/01/2023 Hallux valgus (acquired), left foot (ICD-10 - M20.12) 12/01/2023 Hallux limitus of left foot (ICD-10 - M20.5X2) Plan Of Treatment Pending Test Test Name Order Date X ray : Foot, left 3V 12/01/2023 38837-QWVPQBG NAIL, 6 OR MORE 08/05/2023 91355-MFPJDIQ NAIL, 6 OR MORE 04/03/2021 17008-UYZBZGE NAIL, 6 OR MORE 07/25/2020 47178-FRINHRF NAIL, 6 OR MORE 09/11/2021 49108-NVXXJFL NAIL, 6 OR MORE 07/01/2022 89898-RHTFVHC NAIL, 6 OR MORE 06/18/2021 34320-UKPEFSL NAIL, 6 OR MORE 04/01/2023 98310-Uwwu Destruction, 1-14 05/03/2023 36587-Jvwq Destruction, -14 06/03/2023 08707-Xsqk Destruction, -14 07/05/2023 30314-Momb Destruction, -14 08/05/2023 48356-Xtlv Destruction, -14 06/18/2021 58960-Tzua Destruction, -14 08/07/2021 52241-Sdng Destruction, -14 09/11/2021 07058-Rbkc Destruction, -14 07/30/2022 75399-Naaz Destruction, -14 08/31/2022 81486-Fngp Destruction, -14 10/12/2022 92351-Hbvk Destruction, -14 11/16/2022 52649-Qkfy Destruction, -14 12/14/2022 84602-Medo Destruction, 01/21/2023 07094-Scte Destruction, 06-1302/24/2023 67436-Dqii Destruction, 06-1304/01/2023 36155-Mcro Destruction, 06-1310/16/2021 47088-Dwxv Destruction, 06-1312/17/2021 80223-Rpeg Destruction, 06-1301/29/2022 23470-Hwpl Destruction, 06-1303/04/2022 79387-Rpas Destruction, 06-1304/09/2022 24200-Kgaq Destruction, 06-1305/20/2022 54845-Iavt Destruction, 06-1307/01/2022 82200-Qnsx Destruction, 06-1307/25/2020 44622-Hvyg Destruction, 06-1308/21/2020 28885-Zjre Destruction, 06-1309/12/2020 18224-Swop Destruction, 06-1310/03/2020 99881-Cqml Destruction, 06-1310/24/2020 55120-Cagi Destruction, 06-1311/25/2020 73373-Aytz Destruction, 06-1312/19/2020 39277-Jkqh Destruction, 06-1301/13/2021 80745-Cteh Destruction, 06-1302/19/2021 21186-Zbmg Destruction, 06-1304/03/2021 01426-Hksx Destruction, 06-1304/28/2021 80977-Aqbh Destruction, 06-1306/27/2020 47780-Eubg Destruction, 06-1309/09/2023 41457-Clmq Destruction, 06-1311/03/2023 63156-Ccra Destruction, 06-1312/01/2023 80018-Gndt Destruction, 06-1312/27/2023 84388-Alrx Destruction, 06-1301/26/2024 14457-Davy Destruction, 06-1302/24/2024 27617-Tbgi Destruction, 06-1303/27/2024 89393-Lwlg Destruction, 06-1304/24/2024 66809-Tfxv Destruction, 06-1305/29/2024 91193-Lkrg Destruction, 06-1306/28/2024 69908-Vcgd Destruction, -07/31/2024 29400-Hjlx Destruction, -08/31/2024 46838-Wvlk Destruction, -10/04/2024 Next Appt Details Provider Name:Jerry Terrazas , 11/09/2024 03:30:00 PM, [address] [facility], [address], [place], [address], Insurance Providers Payer Name Payer Address Payer Phone Subscriber Number Group Number Insured Name Patient Relationship to Insured Coverage Start Date Coverage End Date [facility] [address] [place] [address] [id number] Yisel Mejias Self - patient is the insured Medical (General) History Medical History History ICD Code Anxiety Back,Hip,and Knee pain Broken bones Chicken pox Depression Headaches Warts Surgical History Surgery Date(Month/Year) hysterectomy 2005 lumpectomy 2019 lumpectomy 12/2022 colonoscopy 07/2024 [place]ization History Reason Date[place] [facility] [place] Espitia- small bowel obstruction 10/04- 022 Espitia- bowel obstruction 08/2021
--- OUTSIDE RECORDS SUMMARY | 2024-10-12 15:54 | XMS_ITS ---
Author Organization [facility] Address [address] [place] [address] Care Team Providers Care Warehouse Helper Name Role Phone Samuel Patel MD Primary Care Provider Jerry Yan Unavailable [phone] Allergies No Known Allergies REASON FOR VISIT Wart(s) Medications Medication SIG [...] Negative Vital Signs Height 5ft 2in in 08/31/2024 Weight 123 lbs 08/31/2024 BMI 22.49 kg/m2 08/31/2024 Blood pressure systolic 120 mm Hg 09/01/19 25 Blood pressure diastolic 80 mm Hg 025 Procedures Procedure Date Ordered Date Performed Result Body Sit e 89809-Fduz Destruction, 1-14 08/31/2024 N/A Encounters Encounter Location Date Provider Diagnosis [facility] [place] [address] [place] [address] 08/31/2024 Jerryrosalind MauricioMk Right foot pain M79.671 ; Plantar wart B07.0 and Left foot pain M79.672 Assessments Encounter Date Diagnosis (ICD Code) Assessment Notes Treatment Notes Treatment Clinical Notes Section Notes 08/31/2024 Right foot pain (ICD-10 - M79.671) 08/31/2024 Plantar wart (ICD-10 - B07.0) Chronic 08/31/2024 Left foot pain (ICD-10 - M79.672) Plan Of Treatment Pending Test Test Name Order Date 07329-Kdxz Destruction, -08/31/2024 Next Appt Details Follow Up: prn, Reason: Provider Name:Jerry Terrazas , 11/09/2024 03:30:00 PM, [address] [facility], [place] [address], [place], [address], Procedure Notes * Category Sub-Category Detail Notes [...] defers any other forms of tx - 56232 Progress Notes * Yisel RUSSELLDOB:[birth year] (54 yo F)Acc No.[id number]:08/31/2024 Progress Notes Patient:Yisel FARFAN Provider:Dewayne Terrazas DPM :1970???Age:54 Y???Sex:Female D ate:08/31/2024 Address:[address] [place] [id number] Pcp:Samuel Patel MD Subjective: * Chief Complaints: [...] 1. ?Exercise: work. ?Marital status: . 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 ???Drug/Alcohol:?AUDIT-C (Standard)?Did you have a drink containing [...] patient * Allergies:?N.K.D.A.yes[Aller gies Verified] Objective: * Vitals:?Ht:5ft 2in, Wt:123, BMI:22.49, Shoe size:7, BP:120/80mm Hg, Ht-cm: 157.48 cm, Wt-k.79 kg. * [...] defers any other forms of tx - 13388.? * Procedure Codes:?93554 Wart Destruction, 1-14 * Follow Up:?prn * [...]
--- OUTSIDE RECORDS SUMMARY | 2024-10-12 15:54 | XMS_ITS ---
Author Organization [facility] Address [address] [facility] [place] [address] Care Team Providers Care Women Specialist Name Role Phone Samuel Patel MD Primary Care Provider Jerry Yan Unavailable [phone] Allergies No Known Allergies REASON FOR VISIT [...] Not ready to yared t Vital Signs Height 5ft 2in in 07/31/2024 Weight 123 lbs 07/31/2024 BMI 22.49 kg/m2 07/31/2024 Blood pressure systolic 122 mm Hg 03/03/20 25 Blood pressure diastolic 75 mm Hg 025 Procedures Procedure Date Ordered Date Performed Result Body Sit e 92054-Ozkl Destruction, 1-14 07/31/2024 N/A Encounters Encounter Location Date Provider Diagnosis [facility] [place] [address] [place] [address] 07/31/2024 Jerry Terrazas Right foot pain M79.671 [...] Treatment Pending Test Test Name Order Date 86300-Jwbo Destruction, -07/31/2024 Next Appt Details Follow Up: prn, Reason: Provider Name:Jerry Terrazas , 11/09/2024 03:30:00 PM, [address] [facility], [address] [facility], [place], [address], Procedure Notes * Category Sub-Category Detail Notes [...] defers any other forms of tx - 33633 Progress Notes * Yisel RUSSELLDOB:[birth year] (54 yo F)Acc No.[id number]:07/31/2024 Progress Notes Patient:Yisel FARFAN Provider:?Jerry Terrazas DPM :1970???Age:54 Y???Sex:Female D ate:07/31/2024 Address:[address] [place] [address] Pcp:Samuel Patel MD Subjective: * Chief Complaints: [...] Procedure:?Espitia- bowel obstruction 08/2021[place]- small bowel obstruction 10/04-10/06[place] [place] * Family History:?Mother: hodan peters.?Father: [...] 1. ?Exercise: work. ?Marital status: . ?Occupation: [employer] at [employer]. * Medications:?TakingfluvoxaMI NE Maleate 100 MG Tablet [...] defers any other forms of tx - 39068.? * Procedure Codes:?86517 Wart Destruction, 1-14 * Preventive Medicine:? ??Counseling:?Tobacco [...] DPM Date:?2024 Generated for Nneka west/Swetha/Alondra on:?10/12/2024 03:53 PM EDT History and Physical Notes * [...]
== END 2024-10-12 15:46 | disposition home or self-care (01) ==
LOC: HO.HGS 15:26
PROVIDERS: PCP Internal Medicine; Visit Provider Surgery
DX: D05.12 Intraductal carcinoma in situ of left breast (principal); Z91.89 Other specified personal risk factors, not elsewhere classified
CPT/HCPCS: 99213

== ENCOUNTER → 2024-10-12 15:25 | Outpatient (BNVA) | payer BC, SELFPAY | PROVIDERS: PCP Internal Medicine; Visit Provider Surgery | DX: D05.12 Intraductal carcinoma in situ of left breast (principal) ==

== ENCOUNTER 2024-11-27 15:17 | Outpatient (AMB) | payer BC, SELFPAY ==
--- NOTE | 2024-11-27 15:19 | A.OFFPC_ITS ---
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 She currently lives at home with her boyfriend and feels safe there. She works at [employer]. Reports she does follow a healthy diet though does not formally exercise. However, she states she is very active at work on her feet all day and does quite a bit of lifting as well. She reports smoking 2 cigarettes a of the day. No alcohol use. No illicit drug use or marijuana use. Depression/jqkmxgz-XFJ-9 6, xochitl 7 score f4. Reports stability on fluvoxamine 150 mg daily. No SI/HI. 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 Not currently on any hormonal therapy. S/p right breast lumpectomy. Underwent adjuvant radiation therapy at [facility] in 2019. Following annually for screening mammograms Schatzki's ring/hiatal hernia-on pantoprazole 40 mg daily. No dysphagia or globus sensation. Following with Gastroenterology Concerns: Reports generalized arthralgias She is also reporting pain of the right shoulder radiating from the neck. No weakness or paresthesias. No known injury She is also reporting pain of the right elbow-reports it is painful to turn her arm Health maintenance: Last screening mammogram 04/2024 without evidence of malignancy Last colonoscopy 07/2024 with 10 year follow-up advised. No evidence of malignancy. Dr. Rubio Pap smear is not indicated ROS: General: No fevers, malaise, unintentional weight loss HEENT: No blurred vision, diplopia. No sore throat, nasal congestion, rhinorrhea, sinus pain, ear pain. No hearing loss Neck - no adenopathy Cardiovascular: No chest pain, palpitations, or leg edema Respiratory: No shortness of breath, wheezing, cough Breast: No pain, palpable lumps, nipple inversion GI: No dysphagia, odynophagia, globus sensation. No abdominal pain, nausea, vomiting, diarrhea, constipation, melena, hematochezia : No dysuria, hematuria, increased urinary frequency, decreased urinary output. SOCIAL MEDIA SPECIALIST: No abn vaginal bleeding or discharge MSK: No myalgia, back pain, arthralgias. see hpi Neuro: No headaches, weakness, paresthesias Psych: no depression/anxiery. No AH/VH. No SI/HI Skin: No rashes or lesions EXAM: Constitutional - Awake and Alert, No apparent distress Eyes - PERRLA, EOMI. Anicteric Ears - external ears normal, canals clear, TMs intact and pearly jameson with good cone of light Nose- septum midline, nares clear, no sinus tenderness Mouth/throat- mucosa moist, tongue and uvula midline, no erythema/edema or tonsillar adenopathy. Neck-trachea midline, thyroid symmetric without palpable nodules, no adenopathy Cardiovascular - S1S2, RRR, No edema Respiratory - Normal lung expansion, Normal respiratory effort, No respiratory distress, CTA bilaterally Gastrointestinal - NT / ND; +BS; No rebound or guarding - No CVA tenderness Extremities - no calf tenderness bilaterally, no swelling Musculoskeletal - Normal inspection, normal ROM Skin - Warm/Dry, no concerning lesions Neurological - Alert & oriented x3, CN II-XII in tact, 5/5 strength BUE and BLE, 2+ patellar reflexes, sensation intact Psychological - Appropriate affect [facility] Medical History (Updated 11/27/24 @ 15:59 by ASHISH Eden) History of colitis Duodenitis Hiatal hernia Schatzki's ring Gastritis Partial obstruction of small intestine Depression Anxiety Surgical History (Updated 11/27/24 @ 15:52 by Kiera Peña) History of esophagogastroduodenoscopy (EGD) Status post right breast lumpectomy (01/25/23) History of colonoscopy (08/23/24) History of left breast biopsy (02/02/19) Hx of hysterectomy (2005) Hx of lumpectomy (02/13/19) Family History Father Mesothelioma Emphysema lung Maternal Grandmother Heart attack Paternal Aunt Aneurysm Social History Household Members: Significant Other Housing: House Are you a primary home health care provider to a significant other at home: No Do you presently have visiting nurse or other home services: No Alcohol intake: former Patient Tobacco Use Status: Current everyday Tobacco user Tobacco use type: Cigar Cigarette Packs Per Day: 1 Cigarettes Per Day: 2 Substance Use Type: Marijuana Current occupational status: employed Questionnaire PHQ-9 Over the last 2 weeks, how often have you been bothered by any of the following problems? 1. Little interest or pleasure in doing things: several days 2. Feeling down, depressed, or hopeless: several days 3. Trouble falling or staying asleep, or sleeping too much: several days 4. Feeling tired or having little energy: several days 5. Poor appetite or overeating: several days 6. Feeling bad about yourself - or that you are a failure or have let yourself or your family down: not at all 7. Trouble concentrating on things, such as reading the newspaper or watching television: several days 8. Moving or speaking so slowly that other people could have noticed. Or the opposite - being so fidgety or restless that you have been moving around a lot more than usual: not at all 9. Thoughts that you would be better off or of hurting yourself in some way: not at all Total score: 6 Depression Screening Interpretation: Negative Depression Screening Done: Yes 99660 - PHQ-9 Billing: Yes Source: Developed by Drs. Ashwin Hunter, Gail Burgess, Alejandro Schilling and colleagues, with an educational mimi from [employer]. Thrive Questionnaire Date Thrive assessed: 11/27/24 I am a: Patient What is your living situation today?: I have a steady place to live Within the past 12 months, did the food you bought not last and you didn't have the money to get more?: Never true Within the past 12 months, did you worry whether your food would run out before you got money to buy more?: Never true Do you have trouble paying for medicines?: No Do you have trouble getting transportation to medical appointments?: No Do you have trouble paying your heating and electricity bill?: No Do you have trouble taking care of your child, family member or friend?: No Do you have trouble with day-to-day activities such as bathing, preparing meals, shopping, managing finances, etc.?: No Are you currently unemployed and looking for a job?: No Are you interested in more education?: No THRIVE Score: 0 XOCHITL-7 AMB Questionnaire XOCHITL-7 Date XOCHITL - 7 assessed: 11/27/24 Feeling nervous, anxious, or on edge: 1 = Several days Not being able to stop or control worryin = Several days Worrying too much about different things: 1 = Several days Trouble relaxin = Several days Being so restless that it is hard to sit still: 0 = Not at all Becoming easily annoyed or irritable: 0 = Not at all Feeling afraid as if something awful might happen: 0 = Not at all Total XOCHITL-7 score (0-4 normal; 5-9 mild; 10-14 moderate; 15-21 severe): 4 Source: Developed by Drs. Ashwin Hunter, Gail Burgess, Alejandro Schilling and colleagues, with an educational mimi from [employer]. XOCHITL-7 Assessment Billing XOCHITL-7 Assessment Tool: XOCHITL-7 Assessment 72696 Physical exam (Primary Care) Vital Signs: Last Vital Signs Temp 98.4 F 11/27/24 15:23 Pulse 88 11/27/24 15:23 Resp 14 11/27/24 15:23 BP 100/68 11/27/24 15:23 Pulse Ox 96 11/27/24 15:23 Oxygen Delivery Method Room Air 11/27/24 15:23 BMI result Body Mass Index 21.9 Tobacco/Smoking Status: Tobacco use Status Patient Tobacco Use Status Current everyday Tobacco 11/27/24 15:31 Tobacco use type Cigar 11/27/24 15:31 PHQ-9: PHQ-9 Score PHQ-9: Total score 6 11/27/24 15:43 Depression Screening Interpretation: Negative Thrive Assessment: Date of Thrive Assessment Date Thrive assessed 11/27/24 11/27/24 15:34 Coding Level of Care Code Est Pt Level 4 (79137) New Pt Prev Care 40-64y(35025) Diagnoses Routine medical exam Z00.00 Schatzki's ring K22.2 Ductal carcinoma in situ (DCIS) of left breast D05.12 Laterality: left Cervical paraspinal muscle spasm M62.838 Right elbow pain M25.521 Additional Codes PHQ-9 - 93430 - PHQ-9 Billing: Yes ([id number]) XOCHITL-7 Assessment Billing - XOCHITL-7 Assessment Tool: XOCHITL-7 Assessment 77649 ([id number]) Assessment & Plan Assessment & Plan (1) Routine medical exam: Code(s): Z00.00 - Encounter for general adult medical examination without abnormal findings Plan: 54-year-old female presenting for annual physical exam. Plan as below (2) Schatzki's ring: Code(s): K22.2 - Esophageal obstruction Category: Medical Plan: Stable. No alarm symptoms. Continue PPI and follow-up with Gastroenterology (3) DCIS (ductal carcinoma in situ) of breast: Code(s): D05.10 - Intraductal carcinoma in situ of unspecified breast Category: Medical Qualifiers: Laterality: left Qualified Code(s): D05.12 - Intraductal carcinoma in situ of left breast Plan: Oncology notes reviewed. Continue surveillance with Oncology. Continue with annual mammograms (4) Cervical paraspinal muscle spasm: Code(s): M62.838 - Other muscle spasm Category: Medical Plan: Recommend ibuprofen and topical analgesics. She is referred to physical therapy (5) Right elbow pain: Code(s): M25.521 - Pain in right elbow Category: Medical Plan: Prescribed ibuprofen. Recommend range of motion exercises and referral placed to occupational therapy Plan Routine screening labs as ordered below Continue with screening mammograms, Pap smears, colonoscopies Continue following for annual skin exams and use sun protection Annual eye exams Wear seat belt in car Recommend regular exercise and healthy diet Addl paln as above Orders: Orders PT Evaluation and Treatment 11/27/24 M62.838 - Other muscle spasm Basic Metabolic Panel 11/27/24 Z00.00 - Encounter for general adult medical examination without abnormal findings Complete Blood Count Auto Diff 11/27/24 Z00.00 - Encounter for general adult medical examination without abnormal findings Liver Panel 11/27/24 Z00.00 - Encounter for general adult medical examination without abnormal findings Lipid Panel 11/27/24 Z00.00 - Encounter for general adult medical examination without abnormal findings Vitamin D 25-OH Total 11/27/24 Z00.00 - Encounter for general adult medical examination without abnormal findings Medications: New ibuprofen 600 mg PO Q6H PRN 60 tabs 0RF pain
[2024-11-27 15:23] VITALS: BP 100/68; PULSE 88; RESP 14; TEMP 36.9; O2SAT 96; BMI 21.9
--- OUTSIDE RECORDS SUMMARY | 2024-11-27 15:37 | XMS_ITS | Patient Health Record ---
Author Organization [facility] Address [address] [place] [address] Care Team Providers Care Certified Substance Abuse Counselor Name Role Phone Jerry Terrazas Unavailable [phone] Allergies No Known Allergies Reason For Referral No Information Medications Medication SIG (Take, Route, Frequency, Duration) Notes Start Date End Date Status fluvoxaMINE Maleate 100 MG 1 tablet at b edtime Orally Once a day; Duration: 30 day(s) Active Vitamin D3 Active Ciclopirox Olamine 0.77 % 1 application Externally Twice a day to skin of feet including between the toes; Duration: 30 days Active Immunizations Vaccine Route Administration Date Status Comme nts COVID-19 Moderna Vaccine Unknown 06/20/2020 Administered COVID-19 Moderna Vaccine Unknown 05/21/2021 Administered 1st 06/20/20 2nd 07/18/20 COVID-19 Moderna Vaccine Unknown 04/11/2024 Administered Influenza Unknown 04/11/2024 Administered Social History Tobacco Use: Social History Observation [...] W/U Status Risk Notes Problem Plantar wart (52080392) Plantar wart (B07.0) Active confirmed Chronic Problem Tinea unguium (402924554) Tinea unguium (B35.1) Active confirmed Vital Signs Heart Rate 73 /min 11/09/2024 Blood pressure diastolic 79 mm Hg 11/09/2024 Height 5ft 2in in 11/09/2024 Blood pressure systolic 118 mm Hg 11/09/2024 Weight 120 lbs 11/09/2024 BMI 21.95 kg/m2 11/09/2024 Procedures Procedure Date Ordered Date Performed Result Body Sit e 41423-Eqzj Destruction, 1-14 12/01/2023 N/A 44908-Rcxm Destruction, -14 12/27/2023 N/A 65396-Cojo Destruction, -14 01/26/2024 N/A 73162-Qqjx Destruction, 1-14 02/24/2024 N/A 04795-Daae Destruction, -14 03/27/2024 N/A 09872-Nkxy Destruction, -14 04/24/2024 N/A 81970-Ccmg Destruction, -14 05/29/2024 N/A 38419-Casw Destruction, -14 06/28/2024 N/A 95642-Qlyk Destruction, -14 07/31/2024 N/A 55181-Irwl Destruction, -14 08/31/2024 N/A 63086-Dvvd Destruction, 1-14 10/04/2024 N/A 81249-Oahs Destruction, 1-14 11/09/2024 N/A Encounters Encounter Location Date Provider Diagnosis [facility] [address] [address] 12/01/2023 Jerry Terrazas Right foot pain M79.671 ; Plantar wart B07.0 ; Left foot pain M79.672 ; Pain in left foot M79.672 ; Pain in left ankle and joints of left foot M25.572 ; Bursitis of left foot M77.52 ; Hallux valgus (acquired), left foot M20.12 and Hallux limitus of left foot M20.5X2 [facility] [address] [address] 12/27/2023 Jerry Mk Right foot pain M79.671 ; Plantar wart B07.0 and Left foot pain M79.[address] [address] 01/26/2024 Jerry Mk Right foot pain M79.671 ; Plantar wart B07.0 and Left foot pain M79.[address] [address] 02/24/2024 Jerry Mk Right foot pain M79.671 ; Plantar wart B07.0 and Left foot pain M79.[address] [address] 03/27/2024 Jerry Mk Right foot pain M79.671 ; Plantar wart B07.0 and Left foot pain M79.[address] [address] 04/24/2024 Jerry Mk Right foot pain M79.671 ; Plantar wart B07.0 and Left foot pain M79.[address] [address] 05/29/2024 Jerry Mk Right foot pain M79.671 ; Plantar wart B07.0 and Left foot pain M79.[address] [address] 06/28/2024 Jerry Mk Right foot pain M79.671 ; Plantar wart B07.0 ; Left foot pain M79.672 and Tinea pedis of both feet B35.[address] [address] 07/31/2024 Jerry Mk Right foot pain M79.671 ; Plantar wart B07.0 ; Left foot pain M79.672 and Tinea pedis of both feet B35.3 [facility] [address] [address] 08/31/2024 Jerry Mk Right foot pain M79.671 ; Plantar wart B07.0 and Left foot pain M79.672 [facility] [address] [address] 10/04/2024 Jerry Mk Right foot pain M79.671 ; Plantar wart B07.0 and Left foot pain M79.672 [facility] [address] [address] 11/09/2024 Jerry Mk Right foot pain M79.671 ; Plantar wart B07.0 and Left foot pain M79.672 [facility] [address] [place] [address] 12/06/2023 Jerry Terrazas [address] [address] 05/29/2024 Jerryrosalind Terrazas [address] [address] 05/30/2024 [facility] [address] [address] 11/09/2024 Jerry Terrazas Assessments Encounter Date Diagnosis (ICD Code) Assessment Notes Treatment Notes Treatment Clinical Notes Section Notes 12/01/2023 Plantar wart (ICD-10 - B07.0) Chronic [...] 10/04/2024 Right foot pain (ICD-10 - M79.671) 11/09/2024 Plantar wart (ICD-10 - B07.0) Chronic 11/09/2024 Right foot pain (ICD-10 - M79.671) 11/09/2024 Left foot pain (ICD-10 - M79.672) 10/04/2024 Left foot pain (ICD-10 - M79.672) [...] 12/01/2023 Left foot pain (ICD-10 - M79.672) 12/01/2023 [...] X ray : Foot, left 3V 12/01/2023 20399-NSEEBBD NAIL, 6 OR MORE 08/05/2023 68963-EEAHZUU NAIL, 6 OR MORE 04/03/2021 66395-HLGBRGI NAIL, 6 OR MORE 07/25/2020 05993-QTMOMQM NAIL, 6 OR MORE 09/11/2021 87713-MMLIRQQ NAIL, 6 OR MORE 07/01/2022 28612-UKAKCOH NAIL, 6 OR MORE 06/18/2021 09768-PIQKWNQ NAIL, 6 OR MORE 04/01/2023 76036-Twrf Destruction, -14 05/03/2023 08184-Klvh Destruction, -14 06/03/2023 85704-Zihy Destruction, -14 07/05/2023 85532-Yvsz Destruction, -14 08/05/2023 11698-Yknb Destruction, -14 06/18/2021 89928-Sppc Destruction, -14 08/07/2021 80037-Kskz Destruction, -14 09/11/2021 34028-Rhod Destruction, -14 07/30/2022 62793-Qjwk Destruction, -08/31/2022 99266-Jtjb Destruction, 10/12/2022 48904-Inwq Destruction, 06-1311/16/2022 96934-Dlsa Destruction, 06-1312/14/2022 37370-Pgvg Destruction, 06-1301/21/2023 97881-Hlog Destruction, 06-1302/24/2023 63167-Qfpb Destruction, 06-1304/01/2023 38204-Fdhp Destruction, 06-1310/16/2021 14977-Xcrj Destruction, 06-1312/17/2021 87468-Zcea Destruction, 06-1301/29/2022 99192-Wfnv Destruction, 06-1303/04/2022 85406-Qynq Destruction, 06-1304/09/2022 88390-Jwio Destruction, 06-1305/20/2022 47119-Uuno Destruction, 06-1307/01/2022 12960-Bbkw Destruction, 06-1307/25/2020 66757-Ophf Destruction, 06-1308/21/2020 46792-Jtnr Destruction, 06-1309/12/2020 60270-Ltsc Destruction, 06-1310/03/2020 70399-Ougo Destruction, 06-1310/24/2020 18344-Rxhy Destruction, 06-1311/25/2020 33612-Wffo Destruction, 06-1312/19/2020 43725-Zdct Destruction, 06-1301/13/2021 64916-Ffbp Destruction, 06-1302/19/2021 11271-Jefr Destruction, 06-1304/03/2021 38292-Fjoa Destruction, 06-1304/28/2021 82575-Ncka Destruction, 06-1306/27/2020 52983-Fmhu Destruction, 06-1309/09/2023 61071-Mfad Destruction, 06-1311/03/2023 13830-Zcss Destruction, 06-1312/01/2023 59631-Sozk Destruction, 06-1312/27/2023 47568-Oxad Destruction, 06-1301/26/2024 56976-Ylwh Destruction, 06-1302/24/2024 32840-Xbgg Destruction, 06-1303/27/2024 16360-Pykp Destruction, 06-1304/24/2024 02240-Qfty Destruction, 06-1305/29/2024 13349-Dhmg Destruction, 06-1306/28/2024 69494-Vdcv Destruction, 06-1307/31/2024 52943-Luix Destruction, 06-1308/31/2024 01743-Liky Destruction, 06-1310/04/2024 42318-Voud Destruction, 06-1311/09/2024 Next Appt Details Provider Name:Jerry Terrazas , 12/11/2024 03:30:00 PM, [address] [facility], [address], [place], [address], Insurance Providers Payer Name Payer Address Payer Phone Subscriber Number Group Number Insured Name Patient Relationship to Insured Coverage Start Date Coverage End Date [facility] Others [address] [phone] [id number] Yisel Mejias Self - patient is the insured Medical (General) History Medical History History ICD Code Anxiety Back,Hip,and Knee pain Broken bones Chicken pox Depression Headaches Warts Surgical History Surgery Date(Month/Year) hysterectomy 2005 lumpectomy 2019 lumpectomy 12/2022 colonoscopy 07/2024 Hospitalization History Reason Date(Month/Year) [facility] [place] Endoscopy 08/12/2023 Espitia- small bowel obstruction 10/04- 022 Espitia- bowel obstruction 08/2021
--- OUTSIDE RECORDS SUMMARY | 2024-11-27 15:37 | XMS_ITS | Patient Health Record ---
Author Organization [facility] Address [address] [place] [address] Care Team Providers Care Drafter Civil Engineering Name Role Phone Samuel Patel MD Primary Care Provider Markie Burton Jr Unavailable [phone] Reason For Referral No Information Medications Medication SIG (Take, Route, Frequency, Duration) Notes Start Date End Date Status Advil 200 MG 1 tablet with food o r milk as needed Orally NEEDED Active MiraLax (colon prep) 8.3 ounce ((238) grams mixed with Gatorade or Crystal Light orally begin at 5:00 p.m. the day before the procedure for 1 day 02/23/2019 Active Vitamin D3 1000 UNIT 1 capsule Orally On ce a day for 30 day(s) Active fluvoxaMINE Maleate ER 150 MG 1 capsule at bedtime Orally Once a day for 30 day(s) Active Immunizations Vaccine Route Administration Date Status Comme nts Influenza Unknown 02/23/2019 Refused Social History Tobacco Use: Social History Observation Description Date Details (start date - stop date) Former Smoker NA - NA Tobacco Use/Smoking Question Answer Notes Patient is a former smoker How long has it been since you last smoked? 3-6 months Alcohol Screen Question Answer Notes Did you have a drink containing alcohol in the p ast year? No Points 0 Interpretation Negative Problems Problem Type SNOMED Code ICD Code Onset Dates Problem Status W/U Status Risk Notes Problem 848421436 Colon cancer screening (Z12.11) Active confirmed Problem 314279422 Encounter for other preprocedural examination (Z01.818) Active confirmed Plan Of Treatment Future Test Test Name Order Date COLONOSCOPY 02/23/2019 Insurance Providers Payer Name Payer Address Payer Phone Subscriber Number Group Number Insured Name Patient Relationship to Insured Coverage Start Date Coverage End Date [employer] [address] [place], [place] [address] [id number] GARCIA RUSSELL Self - patient is the insured Medical (General) History Medical History History ICD Code anxiety/depression breast cancer/radiation therapy Surgical History Surgery Date(Month/Year) lumpectomy 01/2019 partial hysterectomy
== END 2024-11-27 16:04 | disposition home or self-care (01) ==
LOC: HO.HMCHD 15:17
PROVIDERS: PCP Physician Assistant; Visit Provider Physician Assistant
DX: Z00.00 Encounter for general adult medical examination without abnormal findings (principal); K22.2 Esophageal obstruction; D05.12 Intraductal carcinoma in situ of left breast; M62.838 Other muscle spasm; M25.521 Pain in right elbow

== ENCOUNTER → 2024-11-27 15:17 | Outpatient (BNVA) | payer BC, SELFPAY | PROVIDERS: PCP Physician Assistant; Visit Provider Physician Assistant | DX: Z00.00 Encounter for general adult medical examination without abnormal findings (principal); K22.2 Esophageal obstruction; D05.12 Intraductal carcinoma in situ of left breast; M62.838 Other muscle spasm; M25.521 Pain in right elbow; Z13.30 Encounter for screening examination for mental health and behavioral disorders, unspecified; Z13.31 Encounter for screening for depression | CPT/HCPCS: 96127 ==

== ENCOUNTER 2025-01-30 15:00 | Outpatient (RCR) | payer BC, SELFPAY ==
--- NOTE | 2024-12-27 08:26 | MHC.OT.EP ---
[address] [phone] Occupational Therapy Plan of Care Patient Name: Yisel Mejias Date of Evaluation: 12/26/24 Diagnosis: R elbow pain Pain Location: R UE Pain Score: 8 Pain Scale Used: Numeric (0 - 10) Aggravating Factors: movement Alleviating Factors: none reported trialed ibuprofen Assessment: Pt reports R lateral elbow pain has been bothering her for a few years now; she denies trauma, cortisone shots, and / or bracing. She reports the elbow pain & numbness and tingling radiates into the ulnar side of her wrist/ hand and has been most recently affecting her shoulder (poor posture- shoulder rotated fwd). Pt presents today w/ full AROM of her UE and hand. She reports increased pain and numbness w/ palpation and tinels to her medial elbow ; and decreased sensation to ulnar wrist and hand , but denies increased sx's w/ tinels/ palpation of Guyon's canal. Pt also has weakness of her R UE ; she would benefit from skilled OT therapy to address these sx's and increase the functional use of her dominant UE. Frequency and Duration: The patient will be seen 2xs a week for 6 weeks Short Term Goals: Pt will be complaint w/ modifications to ergonomics Pt will be complaint w/ HEP Pt will report 3/10 pain w/ activity Detention Goals: Pt will have 1/10 pain w/ activity Pt will have 45 lbs of R hand director of spa and guest experience w/ w/ elbow flexed PT's LEMUS will be less than or equal to 25% Treatment Plan: Therapeutic Exercise Therapeutic Activity Home Exercise Program Splinting Neuro Re-ed Patient Education Desensitization/Sensory Re-ed Edema Control ADL Training Ultrasound NMES Iontophoresis Paraffin Fluidotherapy MHP Cold Packs Joint Mobilization Soft Tissue Mobilization Kinesiotaping Other (see comments) Electronically Signed By: Soo Griffith OTR/L Please Sign and return to therapist. Thank you once again for your referral.
--- NOTE | 2025-01-30 15:22 | MHC.OT.DC ---
[facility] Office [address] [facility] [phone] F: [phone] F: [phone] Occupational Therapy Discharge Note Patient Name: Yisel Mejias Provider: Nan Alejandro Diagnosis: R elbow pain Date of Surgery: Date of Evaluation: 12/26/24 Date of Discharge: Treatments to Date: 9 Cancellations to Date: No Shows to Date: Discharge Status: Achieved Goals Improved Function Patient Elected to Stop Discharge Summary: Patient is d/c'd today as she has achieved all of her goals and has elected to stop therapy, therapist was in agreement with this. Patient was a pleasure to work with, thank you for your referral. Electronically Signed By: VICKIE Price/Derek, BASILIA Reviewed/agree with student documentation: Therapist: Please Sign and return to therapist, thank you for your referral.
== END 2025-03-28 10:46 | disposition home or self-care (01) ==
LOC: HO.OT 15:00
PROVIDERS: PCP Physician Assistant; Visit Provider Physician Assistant
DX: M25.521 Pain in right elbow (principal)
CPT/HCPCS: 97110; 97140; 97166; 97535

== ENCOUNTER 2025-02-19 10:53 | Outpatient (REF) | payer BC, SELFPAY ==
--- OUTSIDE RECORDS SUMMARY | 2024-12-11 11:30 | XMS_ITS ---
Author Organization [facility] Address [address] [place] [address] Care Team Providers Care Weapons Engineer Name Role Phone MkEran nielsenik Unavailable [phone] Encounters Encounter Location Date Provider Diagnosis [address] [address] 12/11/2024 Jerry Terrazas Plan Of Treatment Next Appt Details Provider Name:Jerry Terrazas , 03/13/2025 03:30:00 PM, [address] [place], [address], Progress Notes * Yisel RUSSELLDOB:[birth year] (54 yo F)Acc No.[id number]:12/11/2024 Progress Notes Patient: Yisel MEDINA Provider: Ania Terrazas DPM :1970 A ge:54 Y S ex:Female Date:12/11/2024 Address:[address] [place] [address] Subjective: * Chief Complaints: * * Medical History: Objective: * Vitals: Assessment: Plan: * Treatment: * Images: * The named appointment provid er may or may not be the originator of this progress note, and it is not deemed complete until electronically signed by the appointment provider. Sign off status: Pending * Provider: Ania Terrazas DPM Date: 0 12/11/2024 Generated for Traei brett/Swetha/eTransmitting on: 0 02/20/2025 01:28 PM EDT
--- OUTSIDE RECORDS SUMMARY | 2025-01-03 11:30 | XMS_ITS ---
Author Organization [facility] Address [address] [place] [address] Care Team Providers Care Marketing Automation Analyst Name Role Phone MkEran nielsenik Unavailable [phone] Encounters Encounter Location Date Provider Diagnosis [address] [address] 01/03/2025 Jerry Terrazas Plan Of Treatment Next Appt Details Provider Name:Jerry Terrazas , 03/13/2025 03:30:00 PM, [address] [place], [address], Progress Notes * Yisel RUSSELLDOB:[birth year] (54 yo F)Acc No.[id number]:01/03/2025 Progress Notes Patient: Yisel MEDINA Provider: Ania Terrazas DPM :1970 A ge:54 Y S ex:Female Date:01/03/2025 Address:[address] [place] [address] Subjective: * Chief Complaints: * * Medical History: Objective: * Vitals: Assessment: Plan: * Treatment: * Images: * The named appointment provid er may or may not be the originator of this progress note, and it is not deemed complete until electronically signed by the appointment provider. Sign off status: Pending * Provider: Ania Terrazas DPM Date: 0 01/03/2025 Generated for Traei brett/Swetha/eTransmitting on: 0 02/20/2025 01:29 PM EDT
--- NOTE | ~2025-02-19 | XR_ITS ---
CLINICAL HISTORY: M25.562 - Pain in left knee 3 view left knee Comparison: None provided Findings: No fractures or dislocations. Mild degenerative changes of the knee with mild joint space narrowing of the medial compartment. Enthesophytes of the patella. No joint effusion. No radiopaque foreign body. IMPRESSION: 1. No acute findings. Mild degenerative changes. This document has been electronically signed by: Radha Wallace MD on 02/20/2025 16:45:28
--- OUTSIDE RECORDS SUMMARY | 2025-02-20 13:28 | XMS_ITS | Patient Health Record ---
Author Organization [facility] Address [address] [place] [address] Care Team Providers Care Pilot Submersible Name Role Phone Amanda (RETIRED) Samuel PAK Primary Care Provide r Unavailable Markie Ng Jr Unavailable [phone] Reason For Referral No Information Medications Medication [...] Problem Status W/U Status Risk Notes Problem [id number] Colon cancer screening (Z12.11) Active confirmed Problem [id number] Encounter for other preprocedural examination (Z01.818) Active confirmed Plan Of Treatment Future Test Test Name Order Date COLONOSCOPY 02/23/2019 Insurance Providers Payer Name Payer Address Payer Phone Subscriber Number Group Number Insured Name Patient Relationship to Insured Coverage Start Date Coverage End Date PAS[employer] [address] [place] [id number] GARCIA RUSSELL Self - patient is the insured Medical (General) History Medical History History ICD Code anxiety/depression breast cancer/radiation therapy Surgical History Surgery Date(Month/Year) lumpectomy 01/2019 partial hysterectomy
--- OUTSIDE RECORDS SUMMARY | 2025-02-20 13:28 | XMS_ITS | Patient Health Record ---
Author Organization [facility] Address [address] [facility] [place] [address] Care Team Providers Care Director Nurses' Registry Name Role Phone Jerry Terrazas Unavailable [phone] Allergies No Known Allergies Reason For Referral No Information Medications Medication SIG (Take, Route, Frequency, Duration) Notes Start Date End Date Status Ciclopirox Olamine 0.77 % 1 application Externally Twice a day to skin of feet including between the toes; Duration: 30 days Active Vitamin D3 Active fluvoxaMINE Maleate 100 MG 1 tablet at b edtime Orally Once a day; Duration: 30 day(s) Active Immunizations Vaccine Route Administration Date Status Comme nts Influenza Unknown 04/11/2024 Administered COVID-19 Moderna Vaccine Unknown 06/20/2020 Administered COVID-19 Moderna Vaccine Unknown 05/21/2021 Administered 1st 06/20/20 2nd 07/18/20 COVID-19 Moderna Vaccine Unknown 04/11/2024 Administered Social History Tobacco Use: [...] W/U Status Risk Notes Problem Plantar wart (92344204) Plantar wart (B07.0) Active confirmed Chronic Problem Onychomycosis (054191938) Tinea unguium (B35.1) Active confirmed Problem Acquired hallux valgus (97842674) Hallux valgus (acquired), left foot (M20.12) Active confirmed Vital Signs Heart Rate 73 /min 11/09/2024 Blood pressure diastolic 71 mm Hg 12/04/2024 Height 5ft 2in in 12/04/2024 Blood pressure systolic 120 mm Hg 12/04/2024 Weight 120 lbs 12/04/2024 BMI 21.95 kg/m2 12/04/2024 Procedures Procedure Date Ordered Date Performed Result Body Sit e 98689-Habr Destruction, -02/24/2024 N/A 61996-Vims Destruction, -14 03/27/2024 N/A 68038-Tpot Destruction, -14 04/24/2024 N/A 18762-Iybr Destruction, -14 05/29/2024 N/A 41583-Zbtp Destruction, -14 06/28/2024 N/A 80522-Kkgb Destruction, -14 07/31/2024 N/A 52442-Ranl Destruction, -14 08/31/2024 N/A 43446-Tidl Destruction, -14 10/04/2024 N/A 08221-Kqdb Destruction, -14 11/09/2024 N/A 07974-Welh Destruction, -14 12/04/2024 N/A Encounters Encounter Location Date Provider Diagnosis [facility] [address] [place] [phone] 02/24/2024 Jerry Mk Right foot pain M79.671 ; Plantar wart B07.0 and Left foot pain M79.672 [facility] [address] [place] [address] 03/27/2024 Jerry Mk Right foot pain M79.671 ; Plantar wart B07.0 and Left foot pain M79.672 [facility] [address] [address] 04/24/2024 Jerry Mk Right foot pain M79.671 ; Plantar wart B07.0 and Left foot pain M79.672 [facility] [address] [address] 05/29/2024 Jerry Mk Right foot pain M79.671 ; Plantar wart B07.0 and Left foot pain M79.672 [facility] [address] [address] 06/28/2024 Jerry Mk Right foot pain M79.671 ; Plantar wart B07.0 ; Left foot pain M79.672 and Tinea pedis of both feet B35.3 [facility] [address] [place] [address] 07/31/2024 Jerry Mk Right foot pain M79.671 ; Plantar wart B07.0 ; Left foot pain M79.672 and Tinea pedis of both feet B35.3 [facility] [address] [address] 08/31/2024 Jerry Mk Right foot pain M79.671 ; Plantar wart B07.0 and Left foot pain M79.672 [facility] [address] [address] 10/04/2024 Jerry Mk Right foot pain M79.671 ; Plantar wart B07.0 and Left foot pain M79.672 [facility] [address] [place] [address] 11/09/2024 Jerry Mk Right foot pain M79.671 ; Plantar wart B07.0 and Left foot pain M79.672 [place] [address] [address] 12/04/2024 Jerry Mk Right foot pain M79.671 ; Plantar wart B07.0 ; Left foot pain M79.672 ; Pain in left ankle and joints of left foot M25.572 ; Bursitis of left foot M77.52 ; Hallux valgus (acquired), left foot M20.12 and Hallux limitus of left foot M20.5X2 [facility] [address] [address] 05/29/20[address] [facility] [address] 05/30/2024 [facility] [address] 11/[facility] [address] [place] [address] 01/01/2025 Jerry Terrazas Assessments Encounter Date Diagnosis (ICD Code) Assessment Notes Treatment Notes Treatment Clinical Notes Section Notes 02/24/2024 Plantar wart (ICD-10 - B07.0) Chronic [...] 10/04/2024 Right foot pain (ICD-10 - M79.671) 12/04/2024 Plantar wart (ICD-10 - B07.0) Chronic 11/09/2024 Plantar wart (ICD-10 - B07.0) Chronic 11/09/2024 Right foot pain (ICD-10 - M79.671) 12/04/2024 Right foot pain (ICD-10 - M79.671) 12/04/2024 Left foot pain (ICD-10 - M79.672) 11/09/2024 Left foot pain (ICD-10 - M79.672) 10/04/2024 Left foot pain (ICD-10 - M79.672) 08/31/2024 Left foot pain (ICD-10 - M79.672) 07/31/2024 Left foot pain (ICD-10 - M79.672) 06/28/2024 Left foot pain (ICD-10 - M79.672) 05/29/2024 Left foot pain (ICD-10 - M79.672) 04/24/2024 Left foot pain (ICD-10 - M79.672) 03/27/2024 Left foot pain (ICD-10 - M79.672) 02/24/2024 Left foot pain (ICD-10 - M79.672) 07/31/2024 Tinea pedis of both feet (ICD-10 - B35.3) 12/04/2024 Pain in left ankle and joints of left foot (ICD-10 - M25.572) 12/04/2024 Bursitis of left foot (ICD-10 - M77.52) 06/28/2024 Tinea pedis of both feet (ICD-10 - B35.3) 12/04/2024 Hallux valgus (acquired), left foot (ICD-10 - M20.12) 12/04/2024 Hallux limitus of left foot (ICD-10 - M20.5X2) Plan Of Treatment Pending Test Test Name Order Date X ray : Foot, left 3V 12/01/2023 70061-SRZQNKK NAIL, 6 OR MORE 08/05/2023 13325-HIXUDRM NAIL, 6 OR MORE 04/03/2021 28345-QHZAPAY NAIL, 6 OR MORE 07/25/2020 69371-NBEIKKX NAIL, 6 OR MORE 09/11/2021 30047-TCWXCLW NAIL, 6 OR MORE 07/01/2022 62631-EHPDJIM NAIL, 6 OR MORE 06/18/2021 96042-NDDMACT NAIL, 6 OR MORE 04/01/2023 45848-Pvmb Destruction, -05/03/2023 65592-Lpbe Destruction, 06-1306/03/2023 26096-Ofos Destruction, 06-1307/05/2023 54969-Mlbo Destruction, 06-1308/05/2023 81686-Bntx Destruction, 06-1306/18/2021 87796-Tgjv Destruction, 06-1308/07/2021 49070-Seoy Destruction, 06-1309/11/2021 57922-Kmjp Destruction, 06-1307/30/2022 05678-Aoan Destruction, 06-1308/31/2022 76486-Ylhq Destruction, 06-1310/12/2022 80262-Pmyj Destruction, 06-1311/16/2022 08705-Rnvg Destruction, 06-1312/14/2022 67295-Pwbp Destruction, 06-1301/21/2023 05317-Wrmx Destruction, 06-1302/24/2023 05867-Pkki Destruction, 06-1304/01/2023 46771-Ndqf Destruction, 06-1310/16/2021 21176-Otwi Destruction, 06-1312/17/2021 98949-Jocw Destruction, 06-1301/29/2022 96456-Lejq Destruction, 06-1303/04/2022 17012-Shvn Destruction, 06-1304/09/2022 25164-Fkjy Destruction, 06-1305/20/2022 03873-Ugqf Destruction, 06-1307/01/2022 67879-Zaqs Destruction, 06-1307/25/2020 27688-Ljgh Destruction, 06-1308/21/2020 45633-Bhhx Destruction, 06-1309/12/2020 83175-Cdmo Destruction, 06-1310/03/2020 34600-Wjsi Destruction, 06-1310/24/2020 06287-Oqsw Destruction, 06-1311/25/2020 03870-Flic Destruction, 06-1312/19/2020 79658-Ktes Destruction, 06-1301/13/2021 99192-Opro Destruction, 06-1302/19/2021 70868-Yqnh Destruction, 06-1304/03/2021 18383-Pggx Destruction, 06-1304/28/2021 33156-Cvus Destruction, 06-1306/27/2020 61446-Nypq Destruction, 06-1309/09/2023 89011-Ncsf Destruction, 06-1311/03/2023 70932-Vrzi Destruction, 06-1312/01/2023 38933-Pgya Destruction, 06-1312/27/2023 98911-Vqcc Destruction, 06-1301/26/2024 87107-Djxn Destruction, 06-1302/24/2024 58507-Yzur Destruction, 06-1303/27/2024 40303-Uhcg Destruction, 06-1304/24/2024 34005-Mehz Destruction, 06-1305/29/2024 83466-Tfbw Destruction, 06-1306/28/2024 60323-Dsqa Destruction, 06-1307/31/2024 53959-Driq Destruction, 06-1308/31/2024 08655-Qnyk Destruction, 06-1310/04/2024 27110-Iywe Destruction, 06-1311/09/2024 69898-Mapo Destruction, 06-1312/04/2024 Next Appt Details Provider Name:Jerry Terrazas , 03/13/2025 03:30:00 PM, [address] [place], [address], Insurance Providers Payer Name Payer Address Payer Phone Subscriber Number Group Number Insured Name Patient Relationship to Insured Coverage Start Date Coverage End Date [facility] [employer] Others [address] [place] [address] [id number] Yisel Mejias Self - patient is the insured Medical (General) History Medical History History ICD Code Anxiety Back,Hip,and Knee pain Broken bones Chicken pox Depression Headaches Warts Surgical History Surgery Date(Month/Year) hysterectomy 2005 lumpectomy 2018 lumpectomy 12/2022 colonoscopy 07/2024 Hospitalization History Reason Date(Month/Year[place] [facility] [place]/2023 Espitia- small bowel obstruction 10/04- 022 Espitia- bowel obstruction 08/2021
--- OUTSIDE RECORDS SUMMARY | 2025-02-20 13:29 | XMS_ITS | Clinical Summary ---
Author Organization [facility] Address [address] [place] [address] Phone Care Team Providers Care Real Estate Loan Officer Name Role Phone Samuel Patel MD Primary Care Provider Allergies No known active allergies Medications fluvoxaMINE (LUVOX) 100 MG tabletIndicatio ns:anxiety with depression Take 150 mg by mouth nightly at bedtime. Indications: Anxiousness associated with Depression Active cholecalciferol (VITAMIN D3) 2,000 unit capsule Take 1,000 Units by mouth daily. Active oxyCODONE HCl 10 mg Tab Take 10 mg by mouth every 6 (six) hours as needed. 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 Not on meliton e 09/25/2022 Are you concerned about learning? Not on file 09/25/2022 No 09/25/2022 No 09/25/2022 Digital Access Answer Date Recorded No 10/24/2022 No 10/24/2022 No 10/24/2022 Reliable internet access at home? Not on file 10/24/2022 Device with a working camera? Not on file Comments Unknown Sex and Gender Information Value Date Recorded Sex Assigned at Not on file Legal Sex Female 10:57 AM EDT Gender Identity Not on file Sexual Orientation Not on file Last Filed Vital Signs Vital Sign Reading Time Taken Comments Blood Pressure 114/76 06/13/2019 11:35 AM EST Pulse 85 06/13/2019 11:35 AM EST Temperature 36.8 C (98.2 F) 03/15/2019 1:55 PM EDT Respiratory Rate - - Oxygen Saturation 94% 06/13/2019 11:35 AM EST Inhaled Oxygen Concentration - - Weight 63 kg (138 lb 12.8 oz) 06/13/2019 11:35 A M EST Height - - Body Mass Index - - Plan of Treatment Health Maintenance Due Date Last Done Comments Adult Td,Tdap Booster 1969 LIPID PANEL 1969 DEPRESSION SCREENING 1981 SMOKING Hx and SMOKELESS TOBACCO SCREENING 1982 HEPATITIS C SCREENING 1987 HIV ONE-TIME SCREENING (18-65 YEARS) 1987 PNEUMOCOCCAL VACCINES (50+ years) (1 of 2 - PCV) 02/28/1988 ZOSTER VACCINES (1 of 2) 02/28/1988 PAP SMEAR 1990 COLOGUARD 2014 COLONOSCOPY 2014 COLORECTAL CANCER SCREENING 2014 FIT TEST 2014 FOBT 2014 SIGMOIDOSCOPY 2014 VIRTUAL COLONOSCOPY 2014 MAMMOGRAM 02/13/2021 02/13/2019, 09/2018, 01/27/2019, Additional history exists INFLUENZA VACCINE (#1) 2024 , 03/21/2020, 03/24/2019 COVID-19 VACCINE ( season) 2025 HEPATITIS A VACCINES Aged Out No long er eligible based on patient's age to complete this topic HIB VACCINES Aged Out No longer eligi ble based on patient's age to complete this topic MENINGOCOCCAL VACCINES (ACWY) Aged Out No longer eligible based on patient's age to complete this topic MENINGOCOCCAL VACCINES (B) Aged Out N o longer eligible based on patient's age to complete this topic Medical Devices Not on file Procedures Procedure Name Priority Date/Time Associated Diagnosis Comments BI MAMMOGRAM OUTSIDE (NO INTERPRETATION) Routine 02/13/2019 12:00 AM EDT from Last 3 Months or Most Recently Relevant to Health Maintenance Results * Mammogram Outside (No Interpretation) (02/13/2019 12:00 AM EDT) Narrative SYSTEMGENERATED, DOCUMENTATION - 03/06/2019 1:57 PM EDT This study is for PACS storage only and not for interpretation. us Provider Not In System PhD IMG OUTSIDE IMAGING W /OUT INTERPRETATION Final Result from Last 3 Months or Most Recently Relevant to Health Maintenance Insurance CIGSHALONDA PPO CIGNA PPO CIGNA PPO CIGNA PPO CIGNA PPO CIGNA PPO CIGNA PPO CIGNA PPO CIGNA PPO Care Teams Real Estate Loan Officer Relationship Specialty Start Date End Date Samuel Patel MD [address] [place] [address] [place] [address] PCP - General Internal Medicine 03/03/19 Additional Source Comments The information contained in this document represents components of the legal health record. It is not the complete legal health record.[facility]
--- OUTSIDE RECORDS SUMMARY | 2025-02-20 13:29 | XMS_ITS | Encounter Summary ---
Author Organization [facility] Address [address] [place] [address] Phone Care Team Providers Care Direct Support Worker Name Role Phone Samuel Patel MD Primary Care Provider Reason for Referral * - Closed Specialty Diagnoses / Procedures Referred By Contac t Referred To Contact Procedures NM Other Outside (No Interpretation) System, Provider Not In, PhD [facility] [address] [place] [address] Referral ID Status Reason Start Date Expiration Date Visits Re quested Visits Authorized [id number] Closed 03/06/2019 03/05/2020 1 1 Encounter Details Date Type Department Care Team (Late st Contact Info) Description 03/06/2019 Ancillary Orders [facility],Outside Imaging [address] [place], [place] [id number] System, Provider Not In, PhD [facility] [address] [place] [address] Social History Tobacco Use Types Packs/Day Years Used Date Smoking Tobacco: Never Assessed Comments Unknown Sex and Gender Information Value Date Recorded Sex Assigned at Not on file Legal Sex Female 10:57 AM EDT Gender Identity Not on file Sexual Orientation Not on file documented as of this encounter Plan of Treatment Not on file documented as of this encounter Results * NM Other Outside (No Interpretation) (02/13/2019 12:05 AM EDT) Narrative SYSTEMGENERATED, DOCUMENTATION - 03/06/2019 1:58 PM EDT This study is for PACS storage only and not for interpretation. us Provider Not In System PhD IMG OUTSIDE IMAGING W /OUT INTERPRETATION Final Result * Mammogram Outside (No Interpretation) (02/13/2019 12:00 AM EDT) Narrative SYSTEMGENERATED, DOCUMENTATION - 03/06/2019 1:57 PM EDT This study is for PACS storage only and not for interpretation. us Provider Not In System PhD IMG OUTSIDE IMAGING W /OUT INTERPRETATION Final Result * US Breast Outside (No Interpretation) (02/02/2019 12:05 AM EDT) Narrative SYSTEMGENERATED, DOCUMENTATION - 03/06/2019 1:59 PM EDT This study is for PACS storage only and not for interpretation. us Provider Not In System PhD IMG OUTSIDE IMAGING W /OUT INTERPRETATION Final Result * Mammogram Outside (No Interpretation) (02/02/2019 12:00 AM EDT) Narrative SYSTEMGENERATED, DOCUMENTATION - 03/06/2019 1:58 PM EDT This study is for PACS storage only and not for interpretation. us Provider Not In System PhD IMG OUTSIDE IMAGING W /OUT INTERPRETATION Final Result * US Breast Outside (No Interpretation) (01/27/2019 12:05 AM EDT) Narrative SYSTEMGENERATED, DOCUMENTATION - 03/06/2019 2:00 PM EDT This study is for PACS storage only and not for interpretation. us Provider Not In System PhD IMG OUTSIDE IMAGING W /OUT INTERPRETATION Final Result * Mammogram Outside (No Interpretation) (01/27/2019 12:00 AM EDT) Narrative SYSTEMGENERATED, DOCUMENTATION - 03/06/2019 2:00 PM EDT This study is for PACS storage only and not for interpretation. us Provider Not In System PhD IMG OUTSIDE IMAGING W /OUT INTERPRETATION Final Result * Mammogram Outside (No Interpretation) (01/23/2019 12:00 AM EDT) Narrative SYSTEMGENERATED, DOCUMENTATION - 03/06/2019 2:01 PM EDT This study is for PACS storage only and not for interpretation. us Provider Not In System PhD IMG OUTSIDE IMAGING W /OUT INTERPRETATION Final Result documented in this encounter Visit Diagnoses Not on filedocumented in this encounter Care Teams Direct Support Worker Relationship Specialty Start Date End Date Samuel Patel MD [address] [place] [address] [place] [address] PCP - General Internal Medicine 03/03/19 documented as of this encounter Additional Source Comments The information contained in this document represents components of the legal health record. It is not the complete legal health record.[facility]
== END 2025-02-19 10:54 | disposition home or self-care (01) ==
LOC: HO.HOSX 10:53
PROVIDERS: Visit Provider Orthopaedic Surgery
DX: S83.242A Other tear of medial meniscus, current injury, left knee, initial encounter (principal); X58.XXXA Exposure to other specified factors, initial encounter; Z79.1 Long term (current) use of non-steroidal anti-inflammatories (NSAID)
CPT/HCPCS: 73562

== ENCOUNTER 2025-02-19 14:21 | Outpatient (AMB) | payer BC, SELFPAY ==
--- NOTE | 2025-02-19 14:31 | A.OFFVIS_ITS ---
Vital Signs 02/19/25 14:36 Height 5 ft 2 in Weight 121 lb BMI 22.1 Intake Visit Reasons: Left knee pain and giving way Intake Note: Yisel is a 54 year old female who presents with complaints of progressively worsening left knee pain and giving way. The patient states that she injured her left knee approximately 10 years ago while competing in competitive roller skating. The patient states that she twisted her knee and had acute onset of pain. She was seen by another orthopedic surgeon approximately 9 years ago. Since that time her symptoms have gotten worse. Most of the pain is along the medial aspect of her left knee. She has failed the last 6 weeks of conservative treatment which has included Tylenol, anti-inflammatory medicines, physical therapy exercises and a home exercise program. Allergies No Known Allergies Allergy (Verified 02/19/25 14:36) Medication List - Last Reconciled 02/19/25 by Jorge Luis Zheng MD cholecalciferol (vitamin D3) (Vitamin D3) 1 cap PO DAILY famotidine (Pepcid) 20 mg PO BEDTIME fluvoxamine 150 mg (3 x 50 mg) PO DAILY ibuprofen 600 mg PO Q6H PRN pantoprazole 40 mg PO DAILY PFSH Medical History (Updated 02/19/25 @ 15:16 by Jorge Luis Zheng MD) History of colitis Duodenitis Hiatal hernia Schatzki's ring Gastritis Partial obstruction of small intestine Depression Anxiety Surgical History (Updated 01/02/25 @ 16:33 by Gisele Villafana MD) History of esophagogastroduodenoscopy (EGD) Status post right breast lumpectomy (01/25/23) History of colonoscopy (08/23/24) History of left breast biopsy (02/02/19) Hx of hysterectomy (2005) Hx of lumpectomy (02/13/19) Family History Father Mesothelioma Emphysema lung Maternal Grandmother Heart attack Paternal Aunt Aneurysm Social History (Updated 02/19/25 @ 14:37 by Jeanette Carr) Household Members: Significant Other Housing: House Are you a primary child care center administrator to a significant other at home: No Do you presently have visiting nurse or other home services: No Alcohol intake: former Patient Tobacco Use Status: Current everyday Tobacco user Tobacco use type: Cigar Cigarette Packs Per Day: 1 Cigarettes Per Day: 2 Substance Use Type: Marijuana Current occupational status: employed 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 Physical Exam Vital Signs: BMI result Body Mass Index 22.1 Const Other: Well-nourished well-developed very friendly female awake alert and oriented x3 in no acute distress Extrem Other: Left knee examination shows a minimal effusion, minimal crepitus with range of motion, tenderness along her medial joint line, positive Troy's test, no instability Results Reviewed Results Reviewed: Standing full weight-bearing x-rays of the patient's left knee show mild diffuse joint space narrowing, no acute bony abnormalities Assessment & Plan Assessment & Plan (1) Tear of medial meniscus of left knee: Code(s): S83.242A - Other tear of medial meniscus, current injury, left knee, initial encounter Category: Medical Plan Ms. Mejias presents with progressively worsening left knee pain and mechanical symptoms most likely due to a medial meniscus tear. Thus, I will send the patient for an MRI of her left knee for further evaluation. I will see her back once the MRI is completed to discuss the findings and treatment options. Feel free to call me at any time should questions regarding her orthopedic management arise. Thank you very much for asking me to see this very friendly patient. I spent 20 minutes in reviewing the patient's records and imaging studies, seeing the patient and documenting in the medical record. Orders: Orders XR knee LT 3V Today M25.562 - Pain in left knee MR knee LT wo con 02/20/25 S83.242A - Other tear of medial meniscus, current injury, left knee, initial encounter Coding Level of Care Code New Pt Level 3 (95439) Complex EM visit Add On G2211 Diagnoses Tear of medial meniscus of left knee S83.242A
[2025-02-19 14:36] VITALS: BMI 22.1
--- OUTSIDE RECORDS SUMMARY | 2025-02-19 16:54 | XMS_ITS | Patient Health Record ---
Demographics Address [address] [place] [address] Mobile
== END 2025-02-19 14:54 | disposition home or self-care (01) ==
LOC: HO.HOS 14:22
PROVIDERS: PCP Physician Assistant; Visit Provider Orthopaedic Surgery
DX: S83.242A Other tear of medial meniscus, current injury, left knee, initial encounter (principal)
CPT/HCPCS: 99203

== ENCOUNTER → 2025-02-19 14:23 | Outpatient (BNV) | payer BC, SELFPAY | PROVIDERS: Visit Provider Nuclear Medicine | DX: M25.562 Pain in left knee (principal) | CPT/HCPCS: 73562 ==

== ENCOUNTER 2025-03-22 17:48 | Outpatient (REF) | payer BC, SELFPAY ==
--- OUTSIDE RECORDS SUMMARY | 2024-12-11 11:30 | XMS_ITS ---
Author Organization [facility] Address [address] [place] [address] Care Team Providers Care Revenue Cycle Analyst Name Role Phone Nan Alejandro Primary Care Provider Unavailabl Jerry Miller Unavailable [phone] Encounters Encounter Location Date Provider [facility] [address] 12/11/2024 Jerry Terrazas Plan Of Treatment Next Appt Details Provider Name:Jerry Terrazas , 05/11/2025 01:45:00 PM, [address] [place], [address], Progress Notes * Yisel RUSSELLDOB:[birth year] (55 yo F)Acc No.[id number]:12/11/2024 Progress Notes Patient: Yisel MEDINA Provider: Ania Terrazas DPM :1970 A ge:54 Y S ex:Female Date:12/11/2024 Address:[address] [place] [address] Pcp:Nan Alejandro Subjective: * Chief Complaints: * [...] 12/11/2024 Generated for Nneka west/Swetha/Alondra on: 1 07:41 PM EDT
--- OUTSIDE RECORDS SUMMARY | 2025-01-03 11:30 | XMS_ITS ---
Author Organization [facility] Address [address] [place] [address] Care Team Providers Care Sales Development Consultant Name Role Phone Nan Alejandro Primary Care Provider Unavailabl Jerry Miller Unavailable [phone] Encounters Encounter Location Date [facility] [address] 01/03/2025 Jerry Terrazas Plan Of Treatment Next Appt Details Provider Name:Jerry Terrazas , 05/11/2025 01:45:00 PM, [address] [place], [address], Progress Notes * Yisel RUSSELLDOB:[birth year] (55 yo F)Acc No.[id number]:01/03/2025 Progress Notes Patient: Yisel MEDINA Provider: Ania Terrazas DPM :1970 A ge:54 Y S ex:Female Date:01/03/2025 Address:[address] [place] [address] Pcp:Nan Alejandro Subjective: * Chief Complaints: * [...] 01/03/2025 Generated for Nneka west/Swetha/Alondra on: 1 07:41 PM EDT
--- NOTE | ~2025-03-22 | MR_ITS ---
EXAMINATION: MR KNEE WITHOUT CONTRAST, LEFT CLINICAL INFORMATION: Tear of medial meniscus COMPARISON: None available. TECHNIQUE: MRI of the knee without contrast was performed using routine sequences on a high-field scanner. FINDINGS: MENISCI: Medial Meniscus: Tibial surface fraying/ill-defined tear of the anterior root/central anterior horn. Lateral Meniscus: Horizontal tear in the body. Horizontal and peripheral tear in the anterior horn and anterior root. Moderate sized para-meniscal cyst adjacent to the anterior horn and body. Irregular tearing of the inner aspect of the posterior horn. LIGAMENTS: Cruciate: Mucoid degeneration of the ACL. Intact PCL. Collateral: Intact EXTENSOR MECHANISM: Quadriceps and patellar tendon are intact. Mild distal quadriceps tendinosis. Trace deep infrapatellar bursitis. ARTICULAR CARTILAGE/BONE: Patellofemoral Compartment: Focal lateral patellar facet chondral fissure.. Medial Compartment: No significant chondral loss Lateral Compartment: No significant chondral loss No fracture. No aggressive marrow replacing lesion. JOINT FLUID AND BURSAE: Small effusion. Trace Moreland's cyst. MR/MR knee LT wo con IMPRESSION: * Tear of the lateral meniscal posterior horn, body and anterior horn. Associated moderate para-meniscal cyst, detailed above. * Tear of the medial meniscal anterior root/central anterior horn. * ACL mucoid degeneration * Mild distal quadriceps tendinosis. Trace deep infrapatellar bursitis. *Small effusion. Electronically signed by: Hal Gutierrez MD 03/23/2025 07:34 AM EDT
--- OUTSIDE RECORDS SUMMARY | 2025-03-22 19:41 | XMS_ITS | Encounter Summary ---
Author Organization [facility] Address [address] [place] [address] Phone Care Team Providers Care Machinist Tool And Die Name Role Phone Samuel Patel MD Primary Care Provider Reason for Referral * - Closed Specialty Diagnoses / Procedures Referred By Contac t Referred To Contact Procedures NM Other Outside (No Interpretation) System, Provider Not In, PhD [facility] [address] [place] [address] Referral ID Status Reason Start Date Expiration Date Visits Re quested Visits Authorized [id number] Closed 03/06/2019 03/05/2020 1 1 Encounter Details Date Type Department Care Team (Late st Contact Info) Description 03/06/2019 Ancillary Orders [facility],Outside Imaging [address] [place], [place] [phone] System, Provider Not In, [facility] [place] [address] Social History Tobacco Use Types Packs/Day Years [...] on filedocumented in this encounter Care Teams Machinist Tool And Die Relationship Specialty Start Date End Date Samuel Patel MD [address] [place] [address] [place] [address] PCP - General Internal Medicine 03/03/19 documented as of this encounter Additional Source Comments The information contained in this document represents components of the legal health record. It is not the complete legal health record.[facility]
--- OUTSIDE RECORDS SUMMARY | 2025-03-22 19:41 | XMS_ITS | Patient Health Record ---
Author Organization [facility] Address [address] [place] [address] Care Team Providers Care Trucking Supervisor Name Role Phone Amanda (RETIRED) Samuel PAK Primary Care Provide r Unavailable Markie Ng Jr Unavailable Reason For Referral No Information Medications Medication SIG (Take, Route, Frequency, Duration) Notes Start Date End Date Status Advil 200 MG 1 tablet with food o r milk as needed Orally NEEDED Active MiraLax (colon prep) 8.3 ounce ((238) grams mixed with Gatorade or Crystal Light orally begin at 5:00 p.m. the day before the procedure; Duration: 1 day 02/23/2019 Active Vitamin D3 1000 UNIT 1 capsule Orally On ce a day; Duration: 30 day(s) Active fluvoxaMINE Maleate ER 150 MG 1 capsule at bedtime Orally Once a day; Duration: 30 day(s) [...] Problem Status W/U Status Risk Notes Problem Colon cancer screening (136265403) Colon cancer screening (Z12.11) Active confirmed Problem Pre-procedure evaluation check (429931255) Encounter for other preprocedural examination (Z01.818) Active confirmed Plan Of Treatment Future Test Test Name Order Date COLONOSCOPY 02/23/2019 Insurance Providers Payer Name Payer Address Payer Phone Subscriber Number Group Number Insured Name Patient Relationship to Insured Coverage Start Date Coverage End Date [employer] [address] [place] [id number] GARCIA RUSSELL Self - patient is the insured Medical (General) History Medical History History ICD Code anxiety/depression breast cancer/radiation therapy Surgical History Surgery Date(Month/Year) lumpectomy 01/2019 partial hysterectomy
--- OUTSIDE RECORDS SUMMARY | 2025-03-22 19:41 | XMS_ITS | Patient Health Record ---
Author Organization [facility] Address [address] [place] [address] Care Team Providers Care Second Steward Name Role Phone Nan Alejandro Primary Care Provider Jerry Parks Unavailable [phone] Allergies No Known Allergies Reason For Referral No Information Medications Medication SIG (Take, Route, Frequency, Duration) Notes Start Date End Date Status fluvoxaMINE Maleate 100 MG 1 tablet at b edtime Orally Once a day; Duration: 30 day(s) Active Ciclopirox Olamine 0.77 % 1 application Externally Twice a day to skin of feet including between the toes; Duration: 30 days Active Vitamin D3 Active Immunizations Vaccine Route Administration Date Status [...] W/U Status Risk Notes Problem Plantar wart (48806346) Plantar wart (B07.0) Active confirmed Chronic Problem Onychomycosis (129391531) Tinea unguium (B35.1) Active confirmed Vital Signs Heart Rate 73 /min 11/09/2024 Blood pressure diastolic 71 mm Hg 03/13/2025 Height 5ft 2in in 03/13/2025 Blood pressure systolic 120 mm Hg 03/13/2025 Weight 120 lbs 03/13/2025 BMI 21.95 kg/m2 03/13/2025 Procedures Procedure Date Ordered Date Performed Result Body Sit e 97073-Oqyf Destruction, 1-03/27/2024 N/A 31709-Ukce Destruction, 06-1304/24/2024 N/A 66442-Pvyk Destruction, 06-1305/29/2024 N/A 15255-Zvxm Destruction, 06-1306/28/2024 N/A 09407-Kqng Destruction, 06-1307/31/2024 N/A 38290-Fitz Destruction, 06-1308/31/2024 N/A 50243-Rpcr Destruction, 06-1310/04/2024 N/A 94523-Etky Destruction, 06-1311/09/2024 N/A 83673-Bokw Destruction, 06-1312/04/2024 N/A 38091-Nbvx Destruction, -03/13/2025 N/A Encounters Encounter Location Date Provider Diagnosis [facility] [address] [place] [address] 03/27/2024 Jerry Mk Right foot pain M79.671 ; Plantar wart B07.0 and Left foot pain M79.[address] [address] 04/24/2024 Jerry Mk Right foot pain M79.671 ; Plantar wart B07.0 and Left foot pain M79.[address] [place] [address] 05/29/2024 Jerry Mk Right foot pain M79.671 ; Plantar wart B07.0 and Left foot pain M79.672 [facility] [address] [address] 06/28/2024 Jerry Mk Right foot pain M79.671 ; Plantar wart B07.0 ; Left foot pain M79.672 and Tinea pedis of both feet B35.3 [facility] [address] [address] 07/31/2024 Jerry Mk Right foot pain M79.671 ; Plantar wart B07.0 ; Left foot pain M79.672 and Tinea pedis of both feet B35.3 [facility] [address] [place] [address] 08/31/2024 Jerry Mk Right foot pain M79.671 ; Plantar wart B07.0 and Left foot pain M79.672 [facility] [address] [place] [address] 10/04/2024 Jerry Mk Right foot pain M79.671 ; Plantar wart B07.0 and Left foot pain M79.[address] [address] 11/09/2024 Jerry Mk Right foot pain M79.671 ; Plantar wart B07.0 and Left foot pain M79.[address] [address] 12/04/2024 Jerry Mk Right foot pain M79.671 ; Plantar wart B07.0 ; Left foot pain M79.672 ; Pain in left ankle and joints of left foot M25.572 ; Bursitis of left foot M77.52 ; Hallux valgus (acquired), left foot M20.12 and Hallux limitus of left foot M20.5X2 [address] [address] 03/13/2025 Jerry Mk Right foot pain M79.671 ; Plantar wart B07.0 and Left foot pain M79.672 [facility] [place] [address] [address] 05/29/2024 Jerryrosalind Terrazas [facility] [place] [address] [address] 05/30/2024 [facility] [address] [address] 11/09/2024 Jerry Mk [facility] [address] [place] [address] 01/01/2025 Jerry Terrazas Assessments Encounter Date Diagnosis (ICD Code) Assessment Notes Treatment Notes Treatment Clinical Notes Section Notes 03/27/2024 Plantar wart (ICD-10 - B07.0) Chronic [...] 12/04/2024 Right foot pain (ICD-10 - M79.671) 03/13/2025 Plantar wart (ICD-10 - B07.0) Chronic 03/13/2025 Right foot pain (ICD-10 - M79.671) 03/13/2025 Left foot pain (ICD-10 - M79.672) 12/04/2024 Left foot pain (ICD-10 - M79.672) 11/09/2024 Left foot pain (ICD-10 - M79.672) 10/04/2024 Left foot pain (ICD-10 - M79.672) 08/31/2024 Left foot pain (ICD-10 - M79.672) 07/31/2024 Left foot pain (ICD-10 - M79.672) 06/28/2024 Left foot pain (ICD-10 - M79.672) 05/29/2024 Left foot pain (ICD-10 - M79.672) 04/24/2024 Left foot pain (ICD-10 - M79.672) 03/27/2024 Left foot pain (ICD-10 - M79.672) 07/31/2024 [...] X ray : Foot, left 3V 12/01/2023 01626-SRVYOMG NAIL, 6 OR MORE 08/05/2023 47652-PULAVZI NAIL, 6 OR MORE 04/03/2021 13761-EXQJHWO NAIL, 6 OR MORE 07/25/2020 00164-EWGHPRU NAIL, 6 OR MORE 09/11/2021 29589-CHPIEJK NAIL, 6 OR MORE 07/01/2022 19888-WHSXCJA NAIL, 6 OR MORE 06/18/2021 35788-IOAUJRH NAIL, 6 OR MORE 04/01/2023 77961-Gnsr Destruction, -05/03/2023 23426-Fxxn Destruction, 06-1306/03/2023 04351-Aold Destruction, 06-1307/05/2023 69858-Ecyt Destruction, 06-1308/05/2023 03176-Atxg Destruction, 06-1306/18/2021 64604-Jdft Destruction, 06-1308/07/2021 48918-Xeel Destruction, 06-1309/11/2021 83875-Qpki Destruction, 06-1307/30/2022 02147-Ftbj Destruction, 06-1308/31/2022 62012-Tsgd Destruction, 06-1310/12/2022 78528-Kbgh Destruction, 06-1311/16/2022 13114-Shwy Destruction, 06-1312/14/2022 22000-Ayca Destruction, 06-1301/21/2023 65158-Wbzy Destruction, 06-1302/24/2023 16832-Auys Destruction, 06-1304/01/2023 37434-Glmc Destruction, 06-1310/16/2021 80802-Evxr Destruction, 06-1312/17/2021 39477-Zxtc Destruction, 06-1301/29/2022 43544-Zyud Destruction, 06-1303/04/2022 42060-Mnrs Destruction, 06-1304/09/2022 72472-Ytoe Destruction, 06-1305/20/2022 19395-Xxes Destruction, 06-1307/01/2022 11978-Apwc Destruction, 06-1307/25/2020 41918-Fbgh Destruction, 06-1308/21/2020 96168-Yuvf Destruction, 06-1309/12/2020 58970-Zlzt Destruction, 06-1310/03/2020 19948-Attv Destruction, 06-1310/24/2020 00602-Dayk Destruction, 06-1311/25/2020 07413-Lovp Destruction, 06-1312/19/2020 95916-Cpde Destruction, 06-1301/13/2021 42371-Yryl Destruction, 06-1302/19/2021 57042-Pptu Destruction, 06-1304/03/2021 37577-Srix Destruction, 06-1304/28/2021 04341-Pvka Destruction, 06-1306/27/2020 51945-Woab Destruction, 06-1309/09/2023 90251-Atcz Destruction, 06-1311/03/2023 51816-Xfra Destruction, 06-1312/01/2023 10382-Krsb Destruction, 06-1312/27/2023 32159-Hlkf Destruction, 06-1301/26/2024 92859-Phxu Destruction, 06-1302/24/2024 95296-Ywxo Destruction, 06-1303/27/2024 16371-Gcyr Destruction, 06-1304/24/2024 78192-Ausx Destruction, 06-1305/29/2024 01279-Pgcq Destruction, 06-1306/28/2024 01382-Oale Destruction, 06-1307/31/2024 81566-Ysjk Destruction, 06-1308/31/2024 83264-Wcoz Destruction, 06-1310/04/2024 21445-Hlwg Destruction, 06-1311/09/2024 49255-Tlgt Destruction, 06-1312/04/2024 42121-Bymg Destruction, 06-1303/13/2025 Next Appt Details Provider Name:Jerry Terrazas , 05/11/2025 01:45:00 PM, [address] [place], [address], Insurance Providers Payer Name Payer Address Payer Phone Subscriber Number Group Number Insured Name Patient Relationship to Insured Coverage Start Date Coverage End Date [facility] All Others [address] [place] [address] [phone] [id number] Yisel Mejias Self - patient is the insured Medical (General) History Medical History History ICD Code Anxiety Back,Hip,and Knee pain Broken bones Chicken pox Depression Headaches Warts Surgical History Surgery Date(Month/Year) hysterectomy 2005 lumpectomy 2018 lumpectomy 12/2022 colonoscopy 07/2024 Hospitalization History Reason Date(Month/Year) [facility] [place] 08/12/2023 Espitia- small bowel obstruction 10/04- 022 [facility]- bowel obstruction 08/2021
--- OUTSIDE RECORDS SUMMARY | 2025-03-22 19:41 | XMS_ITS | Clinical Summary ---
Author Organization [facility] Address [address] [place], [place] [address] Phone Care Team Providers Care Data Review Specialist Name Role Phone Samuel Patel MD [...] every 6 (six) hours as needed. PARTIAL FILL:05248 Active Active Problems Problem Noted Date Diagnosed Date DCIS (ductal carcinoma in situ) of breast 2018 Cancer Staging:Pathologic: pT1mi, pN0(sn), cM0, ER: Negative, [place]: Negative - Signed by Jong Guy MD [...] 2024 , 03/21/2020, 03/24/2019 COVID-19 VACCINE ( - 2024- season) 2025 RSV VACCINE (1 - 1-dose 75+ series) 02/28/2044 HEPATITIS A VACCINES Aged Out No long [...] Relevant to Health Maintenance Insurance CIGSHALONDA PPO CIGSHALONDA PPO CIGNA PPO CIGNA PPO CIGNA PPO CIGNA PPO CIGNA PPO CIGNA PPO CIGNA PPO Care Teams Data Review Specialist Relationship Specialty Start Date End Date Samuel Patel MD [address] [place] [address] [place] [address] PCP - General Internal Medicine 03/03/19 Additional Source Comments The information contained in this document represents components of the legal health record. It is not the complete legal health record.[facility]
== END 2025-03-22 17:49 | disposition home or self-care (01) ==
LOC: HO.MRI 17:48
PROVIDERS: PCP Physician Assistant; Visit Provider Orthopaedic Surgery
DX: S83.242A Other tear of medial meniscus, current injury, left knee, initial encounter (principal)
CPT/HCPCS: 73721

== ENCOUNTER → 2025-03-22 17:51 | Outpatient (BNV) | payer BC, SELFPAY | PROVIDERS: PCP Physician Assistant; Visit Provider Radiology Diagnostic Ultrasound | DX: S83.242A Other tear of medial meniscus, current injury, left knee, initial encounter (principal); M23.612 Other spontaneous disruption of anterior cruciate ligament of left knee; M67.864 Other specified disorders of tendon, left knee; M25.462 Effusion, left knee | CPT/HCPCS: 73721 ==

== ENCOUNTER 2025-03-28 14:31 | Outpatient (AMB) | payer BC, SELFPAY ==
--- OUTSIDE RECORDS SUMMARY | 2024-12-11 11:30 | XMS_ITS ---
Author Organization [facility] Address [address] [place] [address] Care Team Providers Care Copy Chief Name Role Phone Nan Alejandro Primary Care Provider Unavailabl Jerry Miller Unavailable [phone] Encounters Encounter Location Date [facility] [address] 12/11/2024 Jerry Terrazas Plan Of Treatment Next Appt Details Provider Name:Jerry Terrazas , 05/11/2025 01:45:00 PM, [address] [place], [address], Progress Notes * Yisel RUSSELLDOB:[birth year] (55 yo F)Acc No.[id number]:12/11/2024 Progress Notes Patient: Yisel MEDINA Provider: Ania Terrazas DPM :1970 A ge:54 Y S ex:Female Date:12/11/2024 Address:[address] [place] [address] Pcp:Nan Alejandro Subjective: * Chief Complaints: * [...] 12/11/2024 Generated for Nneka west/Swetha/Alondra on: 1 06:51 PM EDT
--- OUTSIDE RECORDS SUMMARY | 2025-01-03 11:30 | XMS_ITS ---
Author [facility] Address [address] [place] [address] Care Team Providers Care Dial Maker Name Role Phone Nan Alejandro Primary Care Provider Unavailabl Jerry Miller Unavailable [phone] Encounters Encounter Location Date [facility] [address] 01/03/2025 Jerry Terrazas Plan Of Treatment Next Appt Details Provider Name:Jerry Terrazas , 05/11/2025 01:45:00 PM, [address] [place], [address], Progress Notes * Yisel RUSSELLDOB:[birth year] (55 yo F)Acc No.[id number]:01/03/2025 Progress Notes Patient: Yisel MEDINA Provider: Ania Terrazas DPM :1970 A ge:54 Y S ex:Female Date:01/03/2025 Address:[address] [place] [address] Pcp:Nan Alejandro Subjective: * Chief Complaints: * [...] 01/03/2025 Generated for Nneka west/Swetha/Alondra on: 1 06:52 PM EDT
--- NOTE | 2025-03-28 14:36 | MHC.OFFVIS ---
Vital Signs 03/28/25 14:38 Height 5 ft 2 in Weight 120 lb BMI 21.9 Intake Visit Reasons: OV-MRI Knee LT review-done 03/12/25 Intake Note: Yisel is a 55 year old female who presents with intermittent pain in her left knee. The patient states that she injured her left knee approximately 10 years ago while competing in competitive roller skating. The patient states that she twisted her knee and had acute onset of pain. She was seen by another orthopedic surgeon approximately 9 years ago. Since that time her symptoms have gotten worse. Most of the pain is along the medial aspect of her left knee. She has failed the last 6 weeks of conservative treatment which has included Tylenol, anti-inflammatory medicines, physical therapy exercises and a home exercise program. Allergies No Known Allergies Allergy (Verified 02/19/25 14:36) Medication List - Last Reconciled 03/28/25 by Jorge Luis Zheng MD cholecalciferol (vitamin D3) (Vitamin D3) 1 cap PO DAILY famotidine (Pepcid) 20 mg PO BEDTIME fluvoxamine 150 mg (3 x 50 mg) PO DAILY ibuprofen 600 mg PO Q6H PRN pantoprazole 40 mg PO DAILY PFSH Medical History (Updated 02/19/25 @ 15:16 by Jorge Luis Zheng MD) History of colitis Duodenitis Hiatal hernia Schatzki's ring Gastritis Partial obstruction of small intestine Depression Anxiety Surgical History (Updated 01/02/25 @ 16:33 by Gisele Villafana MD) History of esophagogastroduodenoscopy (EGD) Status post right breast lumpectomy (01/25/23) History of colonoscopy (08/23/24) History of left breast biopsy (02/02/19) Hx of hysterectomy (2005) Hx of lumpectomy (02/13/19) Family History Father Mesothelioma Emphysema lung Maternal Grandmother Heart attack Paternal Aunt Aneurysm Social History (Updated 02/19/25 @ 14:37 by Jeanette Carr) Household Members: Significant Other Housing: House Are you a primary rehab care assistant to a significant other at home: No Do you presently have visiting nurse or other home services: No Alcohol intake: former Patient Tobacco Use Status: Current everyday Tobacco user Tobacco use type: Cigar Cigarette Packs Per Day: 1 Cigarettes Per Day: 2 Substance Use Type: Marijuana Current occupational status: employed 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 Physical Exam Vital Signs: BMI result Body Mass Index 21.9 Const Other: Well-nourished well-developed very friendly female awake alert and oriented x3 in no acute distress Extrem Other: Left knee examination shows a minimal effusion, mild crepitus with range of motion, tenderness along her medial and lateral joint lines, positive Troy's test, no instability Results Reviewed Results Reviewed: MRI of the patient's left knee shows mild diffuse degenerative changes as well as tearing of the medial and lateral menisci Assessment & Plan Assessment & Plan (1) Tear of medial meniscus of left knee: Code(s): S83.242A - Other tear of medial meniscus, current injury, left knee, initial encounter Category: Medical Plan Ms. Mejias presents with intermittent left knee pain and mechanical symptoms due to early degenerative joint disease as well as tearing of her medial and lateral menisci. I had a lengthy discussion with the patient regarding the treatment options. At this point the patient's symptoms are tolerable to her. She will continue with her activity modifications. We will hold off on arthroscopic surgery for now. She will follow up with me on an as-needed basis should her symptoms worsen in any way. Feel free to call me at any time should questions regarding her orthopedic management arise. I spent 21 minutes in reviewing the patient's records and imaging studies, seeing the patient and documenting in the medical record. Coding Level of Care Code Est Pt Level 3 (08893) Complex EM visit Add On G2211 Diagnoses Tear of medial meniscus of left knee S83.242A
[2025-03-28 14:38] VITALS: BMI 21.9
--- OUTSIDE RECORDS SUMMARY | 2025-03-28 18:52 | XMS_ITS | Patient Health Record ---
Author Organization [facility] Address [address] [facility] [place] [address] Care Team Providers Care Leaf Sticker Name Role Phone Nan Alejandro Primary Care Provider Jerry Parks Unavailable [phone] Allergies No Known Allergies Reason For Referral [...] W/U Status Risk Notes Problem Plantar wart (71538848) Plantar wart (B07.0) Active confirmed Chronic Problem Onychomycosis (147210844) Tinea unguium (B35.1) Active confirmed Vital Signs Heart Rate 73 /min 11/09/2024 Blood pressure diastolic 71 mm Hg 03/13/2025 Height 5ft 2in in 03/13/2025 Blood pressure systolic 120 mm Hg 03/13/2025 Weight 120 lbs 03/13/2025 BMI 21.95 kg/m2 03/13/2025 Procedures Procedure Date Ordered Date Performed Result Body Sit e 56067-Xibc Destruction, -04/24/2024 N/A 60460-Zauy Destruction, 06-1305/29/2024 N/A 62617-Wqkq Destruction, 06-1306/28/2024 N/A 09217-Vidv Destruction, 06-1307/31/2024 N/A 15498-Axmn Destruction, 06-1308/31/2024 N/A 28586-Tibr Destruction, 06-1310/04/2024 N/A 97952-Yplp Destruction, 06-1311/09/2024 N/A 57278-Tntf Destruction, 06-1312/04/2024 N/A 82437-Jnkb Destruction, 06-1303/13/2025 N/A Encounters Encounter Location Date Provider Diagnosis [facility] [address] 04/24/2024 Jerry Mk Right foot pain M79.671 ; Plantar wart B07.0 and Left foot pain M79.[address] [facility] [address] 05/29/2024 Jerry Mk Right foot pain M79.671 ; Plantar wart B07.0 and Left foot pain M79.[address] [facility] [address] 06/28/2024 Jerry Mk Right foot pain M79.671 ; Plantar wart B07.0 ; Left foot pain M79.672 and Tinea pedis of both feet B35.3 [facility] [address] [address] 07/31/2024 Jerry Mk Right foot pain M79.671 ; Plantar wart B07.0 ; Left foot pain M79.672 and Tinea pedis of both feet B35.3 [facility] [address] [address] 08/31/2024 Jerry Mk Right foot pain M79.671 ; Plantar wart B07.0 and Left foot pain M79.[address] [address] 10/04/2024 Jerry Mk Right foot pain M79.671 ; Plantar wart B07.0 and Left foot pain M79.[address] [address] 11/09/2024 Jerry Mk Right foot pain M79.671 ; Plantar wart B07.0 and Left foot pain M79.[address] [address] 12/04/2024 Jerry Mk Right foot pain M79.671 ; Plantar wart B07.0 ; Left foot pain M79.672 ; Pain in left ankle and joints of left foot M25.572 ; Bursitis of left foot M77.52 ; Hallux valgus (acquired), left foot M20.12 and Hallux limitus of left foot M20.5X2 [facility] [address] [place] [address] 03/13/2025 Jerry Mk Right foot pain M79.671 ; Plantar wart B07.0 and Left foot pain M79.[address] [address] 05/29/2024 Jerry Mk [address] [address] 05/30/2024 Jerry Terrazas [facility] [address] [address] 11/09/2024 Jerry Mk [facility] [address] [place] [address] 01/01/2025 Jerry Terrazas Assessments Encounter Date Diagnosis (ICD Code) Assessment Notes Treatment Notes Treatment Clinical Notes Section Notes 04/24/2024 Plantar wart (ICD-10 - B07.0) Chronic [...] 04/24/2024 Left foot pain (ICD-10 - M79.672) 07/31/2024 [...] X ray : Foot, left 3V 12/01/2023 16193-QYLPYER NAIL, 6 OR MORE 08/05/2023 25874-HEZBACY NAIL, 6 OR MORE 04/03/2021 29460-MWAPLUC NAIL, 6 OR MORE 07/25/2020 92014-WXZQYOQ NAIL, 6 OR MORE 09/11/2021 30788-LUAUHXQ NAIL, 6 OR MORE 07/01/2022 87196-JZBZJFN NAIL, 6 OR MORE 06/18/2021 63786-TOKWMMG NAIL, 6 OR MORE 04/01/2023 51511-Vhts Destruction, 1-14 05/03/2023 25169-Gyny Destruction, 1-14 06/03/2023 76512-Tdir Destruction, 1-14 07/05/2023 77713-Mtqo Destruction, 1-14 08/05/2023 01852-Aldd Destruction, 1-14 06/18/2021 15248-Egfw Destruction, 1-14 08/07/2021 25669-Frvo Destruction, 06-1309/11/2021 73758-Cnaa Destruction, 06-1307/30/2022 85029-Rvin Destruction, 06-1308/31/2022 72108-Gotz Destruction, 06-1310/12/2022 16996-Lbiv Destruction, 06-1311/16/2022 55295-Haxx Destruction, 06-1312/14/2022 62383-Amyu Destruction, 06-1301/21/2023 73188-Cgiv Destruction, 06-1302/24/2023 95146-Mwpp Destruction, 06-1304/01/2023 08684-Fiww Destruction, 06-1310/16/2021 35080-Dpfv Destruction, 06-1312/17/2021 72832-Ldtp Destruction, 06-1301/29/2022 28979-Vcse Destruction, 06-1303/04/2022 10603-Dkei Destruction, 06-1304/09/2022 38592-Nbsc Destruction, 06-1305/20/2022 10546-Gepz Destruction, 06-1307/01/2022 96542-Vydu Destruction, 06-1307/25/2020 84189-Vbft Destruction, 06-1308/21/2020 25593-Lcsb Destruction, 06-1309/12/2020 97379-Cdwg Destruction, 06-1310/03/2020 54777-Zuwv Destruction, 06-1310/24/2020 52609-Xfaq Destruction, 06-1311/25/2020 26921-Sjbd Destruction, 06-1312/19/2020 58492-Adxw Destruction, 06-1301/13/2021 37960-Mooz Destruction, 06-1302/19/2021 96320-Kdia Destruction, 06-1304/03/2021 64196-Wzxv Destruction, 06-1304/28/2021 62151-Mxrn Destruction, 06-1306/27/2020 77535-Ajtm Destruction, 06-1309/09/2023 03591-Jcul Destruction, 06-1311/03/2023 18214-Jrzn Destruction, 1-12/01/2023 51777-Kdmm Destruction, 06-1312/27/2023 89961-Ysdw Destruction, 06-1301/26/2024 14233-Eabs Destruction, 06-1302/24/2024 78322-Jhmj Destruction, 14 03/27/2024 71622-Ivah Destruction, 14 04/24/2024 38670-Pqma Destruction, 14 05/29/2024 64786-Fdqw Destruction, 06-1306/28/2024 00044-Axjr Destruction, 06-1307/31/2024 40750-Tdid Destruction, 06-1308/31/2024 13122-Ahbs Destruction, 06-1310/04/2024 50351-Lsra Destruction, 06-1311/09/2024 60068-Nmkm Destruction, 06-1312/04/2024 66384-Meri Destruction, 06-1303/13/2025 Next Appt Details Provider Name:Jerry Terrazas , 05/11/2025 01:45:00 PM, [address] [place], [address], Insurance Providers Payer Name Payer Address Payer Phone Subscriber Number Group Number Insured Name Patient Relationship to Insured Coverage Start Date Coverage End Date [facility] All Others [address] [place] [address] [phone] [id number] Yisel Mejias Self - patient is the insured Medical (General) History Medical History History ICD Code Anxiety Back,Hip,and Knee pain Broken bones Chicken pox Depression Headaches Warts Surgical History Surgery Date(Month/Year) hysterectomy 2005 lumpectomy 2019 lumpectomy 12/2022 colonoscopy 07/2024 Hospitalization History Reason Date(Month/Year) [facility] Endoscopy 08/12/2023 Espitia- small bowel obstruction 10/04- 022 Esp[facility]- bowel obstruction 08/2021
--- OUTSIDE RECORDS SUMMARY | 2025-03-28 18:52 | XMS_ITS | Clinical Summary ---
Author Organization [facility] Address [address] [place] [phone] Phone Care Team Providers Care Top Screw Name Role Phone Samuel Patel MD Primary [...] every 6 (six) hours as needed. 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 It is not the complete legal health record.[facility]
--- OUTSIDE RECORDS SUMMARY | 2025-03-28 18:52 | XMS_ITS | Patient Health Record ---
Author Organization [facility] Address [address] [place] [address] Care Team Providers Care Marble Supervisor Name Role Phone Amanda (RETIRED) Samuel PAK Primary Care Provide r Unavailable Markie Ng Jr Unavailable [phone] Reason For Referral No Information Medications [...] Status Risk Notes Problem Colon cancer screening (613928286) Colon cancer screening (Z12.11) Active confirmed Problem Pre-procedure evaluation check (394788667) Encounter for other preprocedural examination (Z01.818) Active confirmed Plan Of Treatment Future Test Test Name Order Date COLONOSCOPY 02/23/2019 Insurance Providers Payer Name Payer Address Payer Phone Subscriber Number Group Number Insured Name Patient Relationship to Insured Coverage Start Date Coverage End Date [employer] [address] [place] [address] [id number] GARCIA RUSSELL Self - patient is the insured Medical (General) History Medical History History ICD Code anxiety/depression breast cancer/radiation therapy Surgical History Surgery Date(Month/Year) lumpectomy 01/2019 partial hysterectomy
--- OUTSIDE RECORDS SUMMARY | 2025-03-28 18:52 | XMS_ITS | Encounter Summary ---
Author Organization [facility] Address [address] [place] [address] Phone Care Team Providers Care Customer Service Engineer Name Role Phone Samuel Patel MD Primary Care Provider Reason for Referral * - Closed Specialty Diagnoses / Procedures Referred By Contac t Referred To Contact Procedures NM Other Outside (No Interpretation) System, Provider Not In, PhD [facility] [address] [place] [address] Referral ID Status Reason Start Date Expiration Date Visits Re quested Visits Authorized [id number] Closed 03/06/2019 03/05/2020 1 1 Encounter Details Date Type Department Care Team (Late st Contact Info) Description 03/06/2019 Ancillary Orders [facility],Outside Imaging [address] [place], [place] [id number] System, Provider Not In, PhD [facility] [address] [place] [address] Social History Tobacco Use Types Packs/Day Years [...] on filedocumented in this encounter Care Teams Customer Service Engineer Relationship Specialty Start Date End Date Samuel Patel MD [address] [place] [address] [place] [id number] PCP - General Internal Medicine 03/03/19 documented as of this encounter Additional Source Comments The information contained in this document represents components of the legal health record. It is not the complete legal health record.[facility]
== END 2025-03-28 15:07 | disposition home or self-care (01) ==
LOC: HO.HOS 14:32
PROVIDERS: PCP Physician Assistant; Visit Provider Orthopaedic Surgery
DX: S83.242A Other tear of medial meniscus, current injury, left knee, initial encounter (principal)
CPT/HCPCS: 99213

== ENCOUNTER 2025-04-10 15:24 | Outpatient (AMB) | payer BC, SELFPAY ==
--- OUTSIDE RECORDS SUMMARY | 2024-12-11 10:30 | XMS_ITS ---
Author [facility] Address [address] [place] [address] Care Team Providers Care Regional Commercial Sales Manager Name Role Phone Nan Alejandro Primary Care Provider Unavailabl Jerry Miller Unavailable [phone] Encounters Encounter Location Date [facility] [address] 12/11/2024 Jerry Terrazas Plan Of Treatment Next Appt Details Provider Name:Jerry Terrazas , 05/11/2025 01:45:00 PM, [address] [place], [address], Progress Notes * Yisel RUSSELLDOB:[birth year] (55 yo F)Acc No.[id number]:12/11/2024 Progress Notes Patient: Yisel MEDINA Provider: Ania Terrazas DPM :1970 A ge:54 Y S ex:Female Date:12/11/2024 Address:[address] [place] [address] Pcp:Nan Alejandro Subjective: * Chief Complaints: * * Medical History: Objective: * Vitals: Assessment: Plan: * Treatment: * Images: * The named appointment provid er may or may not be the originator of this progress note, and it is not deemed complete until electronically signed by the appointment provider. Sign off status: Pending * Provider: Ania Terrazas DPM Date: 0 12/11/2024 Generated for Nneka west/Swetha/Alondra on: 1 06/10/2024 05:02 PM EST
--- OUTSIDE RECORDS SUMMARY | 2025-01-03 10:30 | XMS_ITS ---
Author Organization [facility] Address [address] [place] [address] Care Team Providers Care Tubing Tester Name Role Phone Nan Alejandro Primary Care Provider Unavailabl Jerry Miller Unavailable [phone] Encounters Encounter Location Date Provider [facility] [address] 01/03/2025 Jerry Terrazas Plan Of Treatment Next Appt Details Provider Name:Jerry Terrazas , 05/11/2025 01:45:00 PM, [address] [place], [address], Progress Notes * Yisel RUSSELLDOB:[birth year] (55 yo F)Acc No.[id number]:01/03/2025 Progress Notes Patient: Yisel MEDINA Provider: Ania Terrazas DPM :1970 A ge:54 Y S ex:Female Date:01/03/2025 Address:[address] [place] [address] Pcp:Nan Alejandro Subjective: * Chief Complaints: * [...] 01/03/2025 Generated for Nneka west/Swetha/Alondra on: 1 06/10/2024 05:02 PM EST
--- NOTE | 2025-04-10 15:25 | A.OFFVIS_ITS ---
Vital Signs 04/10/25 15:31 Height 5 ft 2 in Weight 125 lb BMI 22.9 BP 124/79 Blood Pressure Location Lt brachial Position Sitting Pulse 70 Intake Visit Reasons: 6 month breast exam Intake Note: Patient is seen in office for 6 months follow up visit, breast exam. Pt c/o: denies any concerns regarding her breast. 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 She noted a lump in the left breast in 01/17/2019 and diagnostic mammography revealed suspicious coarse calcifications in the upper outer quadrant and ultrasound revealed a suspicious density measuring 1.8 x 1.3 cm corresponding to the palpable mass. Subsequent ultrasound-guided core biopsy on 02/02/2019 revealed DCIS, high nuclear grade solid type with comedonecrosis and microcalcifications. One area was suspicious for microinvasion, ER/NV negative. She subsequently underwent a left breast lumpectomy with sentinel node biopsy on 02/13/2019. Margins were negative for DCIS. Three sentinel nodes were negative for metastatic disease. (pT1 VT, pN0). HER2 was positive. She underwent radiation therapy at [facility] which was completed in 05/19/2019. She underwent several biopsies in the both the left and right breast all of which were benign. Her last mammogram of 05/22/2024 revealed no mammographic evidence of malignancy (BI-RADS 2). She is not scheduled to her annual mammogram yet. [facility] Medical History History of colitis Duodenitis Hiatal hernia Schatzki's ring Gastritis Partial obstruction of small intestine Depression Anxiety Surgical History History of esophagogastroduodenoscopy (EGD) Status post right breast lumpectomy (01/25/23) History of colonoscopy (08/23/24) History of left breast biopsy (02/02/19) Hx of hysterectomy (2005) Hx of lumpectomy (02/13/19) Family History Father Mesothelioma Emphysema lung Maternal Grandmother Heart attack Paternal Aunt Aneurysm Social History Household Members: Significant Other Housing: House Are you a primary manager critical care to a significant other at home: No Do you presently have visiting nurse or other home services: No Alcohol intake: former Patient Tobacco Use Status: Current everyday Tobacco user Tobacco use type: Cigar Cigarette Packs Per Day: 1 Cigarettes Per Day: 2 Substance Use Type: Marijuana Current occupational status: employed 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 Review of Systems Const All systems reviewed & are unremarkable except as noted in HPI and below Physical Exam Vital Signs: Last Vital Signs Pulse 70 04/10/25 15:31 BP 124/79 04/10/25 15:31 BMI result Body Mass Index 22.9 Const General: cooperative and no acute distress Chest Other: Right breast: Well-healed incision with no redness or discharge. No new palpable mass, skin change, nipple discharge or enlarged lymph nodes. Left breast with no new palpable mass, skin change, nipple discharge, or enlarged lymph nodes. GI Inspection: Yes normal to inspection Palpation (GI): Soft to palpation, nontender, no guarding and not rigid Skin Other: Warm, dry, no rash Neuro Other: Mobility Assessment: 1. 3 meter assessment time (seconds) 4 2. Gait observations: Normal balance and gait Assessment & Plan Assessment & Plan (1) DCIS (ductal carcinoma in situ) of breast: Comment: With Microinvasion Code(s): D05.10 - Intraductal carcinoma in situ of unspecified breast Category: Medical Qualifiers: Laterality: left Qualified Code(s): D05.12 - Intraductal carcinoma in situ of left breast (2) At high risk for breast cancer: Code(s): Z91.89 - Other specified personal risk factors, not elsewhere classified Category: Medical Plan 55-year-old female patient with a prior history of ductal carcinoma in-situ with microinvasion status post lumpectomy and sentinel node biopsy, ER/NV negative. She subsequently underwent radiation therapy. Exam today reveals no suspicious findings in either breast. There is some scar tissue in the upper outer quadrant of the left breast but no other suspicious findings. Her most recent mammogram dated 05/22/2024 revealed no mammographic evidence of malignancy (BI- RADS 2). I have placed an order for her annual mammogram in April 2025. She will return in 1 year for routine breast examination. Orders: Orders MM screening mammo BI 05/25/25 D05.12 - Intraductal carcinoma in situ of left breast Coding Level of Care Code Est Pt Level 3 (86250) Complex EM visit Add On G2211 Diagnoses Ductal carcinoma in situ (DCIS) of left breast D05.12 Laterality: left At high risk for breast cancer Z91.89
[2025-04-10 15:31] VITALS: BP 124/79; PULSE 70; BMI 22.9
--- OUTSIDE RECORDS SUMMARY | 2025-04-10 17:02 | XMS_ITS | Clinical Summary ---
Author Organization [facility] Address [address] [place] [address] Phone Care Team Providers Care Senior Label Specialist Name Role Phone Samuel Patel MD [...] every 6 (six) hours as needed. PARTIAL FILL:83311 Active Active Problems Problem Noted Date Diagnosed Date DCIS (ductal carcinoma in situ) of breast 2018 Cancer Staging:Pathologic: pT1mi, pN0(sn), cM0, ER: Negative, PA: Negative - Signed by Jong Guy MD [...] PPO CIGNA PPO CIGNA PPO Care Teams Senior Label Specialist Relationship Specialty Start Date End Date Samuel Patel MD [address] [place] [address] [place] [address] PCP - General Internal Medicine 03/03/19 Additional Source Comments The information contained in this document represents components of the legal health record. It is not the complete legal health record.[facility]
--- OUTSIDE RECORDS SUMMARY | 2025-04-10 17:02 | XMS_ITS | Encounter Summary ---
Author Organization [facility] Address [address] [place] [address] Phone Care Team Providers Care Design Assistant Name Role Phone Samuel Patel MD Primary Care Provider Reason for Referral * - Closed Specialty Diagnoses / Procedures Referred By Contac t Referred To Contact Procedures NM Other Outside (No Interpretation) System, Provider Not In, PhD [facility] [address] [place] [address] Referral ID Status Reason Start Date Expiration Date Visits Re quested Visits Authorized [id number] Closed 03/06/2019 03/05/2020 1 1 Encounter Details Date Type Department Care Team (Late st Contact Info) Description 03/06/2019 Ancillary Orders [facility],Outside Imaging [address] [place], [place] [id number] System, Provider Not In, PhD [facility] [address] [place] [address] Social History Tobacco Use Types Packs/Day Years [...] on filedocumented in this encounter Care Teams Design Assistant Relationship Specialty Start Date End Date Samuel Patel MD [address] [place] [address] [place] [address] PCP - General Internal Medicine 03/03/19 documented as of this encounter Additional Source Comments The information contained in this document represents components of the legal health record. It is not the complete legal health record.[facility]
--- OUTSIDE RECORDS SUMMARY | 2025-04-10 17:02 | XMS_ITS | Patient Health Record ---
Author Organization [facility] Address [address] [place] [address] Care Team Providers Care Graduation Coach Name Role Phone Amanda (RETIRED) Samuel PAK [...] Status Risk Notes Problem Colon cancer screening (499869245) Colon cancer screening (Z12.11) Active confirmed Problem Pre-procedure evaluation check (355957826) Encounter for other preprocedural examination (Z01.818) Active confirmed Plan Of Treatment Future Test Test Name Order Date COLONOSCOPY 02/23/2019 Insurance Providers Payer Name Payer Address Payer Phone Subscriber Number Group Number Insured Name Patient Relationship to Insured Coverage Start Date Coverage End Date [employer] [address] [place] [id number] GARCIA RUSSELL Self - patient is the insured Medical (General) History Medical History History ICD Code anxiety/depression breast cancer/radiation therapy Surgical History Surgery Date(Month/Year) lumpectomy 01/2019 partial hysterectomy
--- OUTSIDE RECORDS SUMMARY | 2025-04-10 17:02 | XMS_ITS | Patient Health Record ---
Author [facility] Address [address] [facility] [place] [address] Care Team Providers Care Emergency Room Tech Name Role Phone Nan Alejandro Primary Care Provider Jerry Parks Unavailable [phone] Allergies No Known Allergies Reason For Referral [...] W/U Status Risk Notes Problem Plantar wart (20320564) Plantar wart (B07.0) Active confirmed Chronic Problem Onychomycosis (298328589) Tinea unguium (B35.1) Active confirmed Vital Signs Heart Rate 73 /min 11/09/2024 Blood pressure diastolic 71 mm Hg 03/13/2025 Height 5ft 2in in 03/13/2025 Blood pressure systolic 120 mm Hg 03/13/2025 Weight 120 lbs 03/13/2025 BMI 21.95 kg/m2 03/13/2025 Procedures Procedure Date Ordered Date Performed Result Body Sit e 94850-Jhww Destruction, -04/24/2024 N/A 78335-Sbdq Destruction, 06-1305/29/2024 N/A 30565-Nujp Destruction, 06-1306/28/2024 N/A 01987-Pyix Destruction, 06-1307/31/2024 N/A 62912-Kije Destruction, 06-1308/31/2024 N/A 38408-Hxsa Destruction, 06-1310/04/2024 N/A 60620-Lmhk Destruction, 06-1311/09/2024 N/A 29485-Iaxc Destruction, 06-1312/04/2024 N/A 85790-Mkyc Destruction, 06-1303/13/2025 N/A Encounters Encounter Location Date Provider Diagnosis [facility] [address] 04/24/2024 Jerry Mk Right foot pain M79.671 ; Plantar wart B07.0 and Left foot [facility] M79.672 [facility] [address] 05/29/2024 Jerry Mk Right foot pain M79.671 ; Plantar wart B07.0 and Left foot pain M79.672 [facility] [address] 06/28/2024 Jerry Mk Right foot pain M79.671 ; Plantar wart B07.0 ; Left foot pain M79.672 and Tinea pedis of both feet B35.3 [facility] [address] [address] 07/31/2024 Jerry Mk Right foot pain M79.671 ; Plantar wart B07.0 ; Left foot pain M79.672 and Tinea pedis of both feet B35.3 [facility] [address] [address] 08/31/2024 Jerry Mk Right foot pain M79.671 ; Plantar wart B07.0 and Left foot pain M79.[address] [address] 10/04/2024 Jerry Mk Right foot pain M79.671 ; Plantar wart B07.0 and Left foot pain M79.[address] [address] 11/09/2024 Jerry Mk Right foot pain M79.671 ; Plantar wart B07.0 and Left foot pain M79.[address] [address] 12/04/2024 Jerry Mk Right foot pain M79.671 ; Plantar wart B07.0 ; Left foot pain M79.672 ; Pain in left ankle and joints of left foot M25.572 ; Bursitis of left foot M77.52 ; Hallux valgus (acquired), left foot M20.12 and Hallux limitus of left foot M20.5X2 [facility] [address] [place] [address] 03/13/2025 Jerry Mk Right foot pain M79.671 ; Plantar wart B07.0 and Left foot pain M79.[address] [address] 05/29/2024 Jerry Mk [address] [address] 05/30/2024 Jerry Terrazas [facility] [address] [address] 11/09/2024 Jerry Mk [facility] [place] [address] [place] [address] 01/01/2025 Jerry Terrazas Assessments Encounter Date Diagnosis [...] X ray : Foot, left 3V 12/01/2023 21616-XAYRGKJ NAIL, 6 OR MORE 08/05/2023 00861-TUHYVYV NAIL, 6 OR MORE 04/03/2021 27998-NQTXJSM NAIL, 6 OR MORE 07/25/2020 64313-KKUPQYE NAIL, 6 OR MORE 09/11/2021 15359-DLWEMVJ NAIL, 6 OR MORE 07/01/2022 56336-XIGISTA NAIL, 6 OR MORE 06/18/2021 58978-DGDJEUZ NAIL, 6 OR MORE 04/01/2023 81097-Qsbw Destruction, 1-14 05/03/2023 76295-Ljxx Destruction, 1-14 06/03/2023 89671-Kmrv Destruction, 1-14 07/05/2023 39869-Jqac Destruction, 1-14 08/05/2023 52821-Dcog Destruction, 1-14 06/18/2021 21163-Nhzb Destruction, 1-14 08/07/2021 15151-Gozl Destruction, 06-1309/11/2021 26121-Geug Destruction, 06-1307/30/2022 29678-Uxyl Destruction, 06-1308/31/2022 53852-Jain Destruction, 06-1310/12/2022 60172-Pycu Destruction, 06-1311/16/2022 66886-Owol Destruction, 06-1312/14/2022 60778-Tliz Destruction, 06-1301/21/2023 40329-Zxxm Destruction, 06-1302/24/2023 42672-Rdfa Destruction, 06-1304/01/2023 36304-Ktoo Destruction, 06-1310/16/2021 04372-Ctod Destruction, 06-1312/17/2021 41318-Iega Destruction, 06-1301/29/2022 50654-Kpod Destruction, 06-1303/04/2022 53428-Tmhk Destruction, 06-1304/09/2022 09206-Wiox Destruction, 06-1305/20/2022 78229-Nsyv Destruction, 06-1307/01/2022 94732-Sdpi Destruction, 06-1307/25/2020 95322-Dxuq Destruction, 06-1308/21/2020 48376-Fvie Destruction, 06-1309/12/2020 44741-Vjmq Destruction, 06-1310/03/2020 28234-Imwn Destruction, 06-1310/24/2020 13377-Hueh Destruction, 06-1311/25/2020 66652-Doet Destruction, 06-1312/19/2020 69917-Gnzd Destruction, 06-1301/13/2021 13014-Xmpv Destruction, 06-1302/19/2021 49039-Jeyt Destruction, 06-1304/03/2021 58410-Gzdl Destruction, 06-1304/28/2021 03008-Bllz Destruction, 06-1306/27/2020 02105-Ldmd Destruction, 06-1309/09/2023 13500-Tghh Destruction, 06-1311/03/2023 57381-Cgbd Destruction, 1-12/01/2023 03259-Wago Destruction, 06-1312/27/2023 64036-Imau Destruction, 06-1301/26/2024 03273-Bjbi Destruction, 06-1302/24/2024 51579-Raxa Destruction, 14 03/27/2024 72500-Jiza Destruction, 14 04/24/2024 62547-Khml Destruction, 14 05/29/2024 15309-Zhex Destruction, 06-1306/28/2024 42995-Uvix Destruction, 06-1307/31/2024 93291-Olzb Destruction, 06-1308/31/2024 10096-Vzno Destruction, 06-1310/04/2024 42291-Vahc Destruction, 06-1311/09/2024 00865-Vfqa Destruction, 06-1312/04/2024 27883-Sgwn Destruction, 06-1303/13/2025 Next Appt Details Provider Name:Jerry Terrazas , 05/11/2025 01:45:00 PM, [address] [place], [address], Insurance Providers Payer Name Payer Address Payer Phone Subscriber Number Group Number Insured Name Patient Relationship to Insured Coverage Start Date Coverage End Date [facility] [employer] [address] [place] [address] [id number] Yisel Mejias Self - patient is the insured Medical (General) History Medical History History ICD Code Anxiety Back,Hip,and Knee pain Broken bones Chicken pox Depression Headaches Warts Surgical History Surgery Date(Month/Year) hysterectomy 2005 lumpectomy 2019 lumpectomy 12/2022 colonoscopy 07/2024 Hospitalization History Reason Date(Month/Year) [facility] Endoscopy 08/12/2023 Espitia- small bowel obstruction 10/04- 022 Espitia- bowel obstruction 08/2021
== END 2025-04-10 15:42 | disposition home or self-care (01) ==
LOC: HO.HGS 15:24
PROVIDERS: PCP Internal Medicine; Visit Provider Surgery
DX: D05.12 Intraductal carcinoma in situ of left breast (principal); Z91.89 Other specified personal risk factors, not elsewhere classified
CPT/HCPCS: 99213

== ENCOUNTER 2025-05-02 12:59 | Emergency (ER) | payer BC, SELFPAY ==
--- OUTSIDE RECORDS SUMMARY | 2024-12-11 10:30 | XMS_ITS ---
Author Organization [facility] Address [address] [place] [address] Care Team Providers Care Wood Preserving Plant Laborer Name Role Phone Nan Alejandro Primary Care Provider Unavailabl Jerry Miller Unavailable [phone] Encounters Encounter Location Date [facility] [address] 12/11/2024 Jerry Terrazas Plan Of Treatment Next Appt Details Provider Name:Jerry Terrazas , 05/11/2025 01:45:00 PM, [address] [place], [address], Progress Notes * Yisel RUSSELLDOB:[birth year] (55 yo F)Acc No.[id number]:12/11/2024 Progress Notes Patient: Yisel MEDINA Provider: Ania Terrazas DPM :1970 A ge:54 Y S ex:Female Date:12/11/2024 Address:[address] [place] [address] Pcp:Nan Alejandro Subjective: * Chief Complaints: * [...] 12/11/2024 Generated for Nneka west/Swetha/Alondra on: 1 07/03/2024 06:35 PM EST
--- OUTSIDE RECORDS SUMMARY | 2025-01-03 10:30 | XMS_ITS ---
Author Organization [facility] Address [address] [place] [address] Care Team Providers Care Accountant Tax Name Role Phone Nan Alejandro Primary Care Provider Unavailabl Jerry Miller Unavailable [phone] Encounters Encounter Location Date [facility] [address] 01/03/2025 Jerry Terrazas Plan Of Treatment Next Appt Details Provider Name:Jerry Terrazas , 05/11/2025 01:45:00 PM, [address] [place], [address], Progress Notes * Yisel RUSSELLDOB:[birth year] (55 yo F)Acc No.[id number]:01/03/2025 Progress Notes Patient: Yisel MEDINA Provider: Ania Terrazas DPM :1970 A ge:54 Y S ex:Female Date:01/03/2025 Address:[address] [place] [address] Pcp:Nan Alejandro Subjective: * Chief Complaints: * [...] 01/03/2025 Generated for Nneka west/Swetha/Alondra on: 1 07/03/2024 06:35 PM EST
--- NOTE | ~2025-05-02 | CT_ITS ---
EXAMINATION: CT HEAD WITHOUT CONTRAST CLINICAL INFORMATION: Head injury COMPARISON: CT head 10/27/2016 TECHNIQUE: Contiguous axial imaging was performed from the skull base to vertex without intravenous administration of contrast. This CT examination was performed using dose optimization techniques as appropriate, variously including the following: *Automated exposure control *Adjustment of mA and/or kV according to patient size (this includes techniques or standardized protocols for targeted exams where dose is matched to indication/reason for exam; i.e. extremities or head) *Use of iterative reconstruction technique FINDINGS: There is no evidence of acute intracranial hemorrhage or edematous large vessel territorial infarction. No abnormal mass effect or midline shift is seen. Rosado to white matter differentiation is well preserved. No abnormal extra-axial fluid collections are identified. There is mild sulcal prominence in the superior portion of the brain, with mild volume loss in the frontal region. No acute calvarial fracture. Paranasal sinuses and mastoid air cells are well-aerated. CT/CT head/brain wo IV con IMPRESSION: No CT evidence of acute intracranial hemorrhage. Chronic changes as detailed above. Electronically signed by: Hal Gutierrez MD 05/02/2025 02:32 PM [facility] [place]
--- NOTE | ~2025-05-02 | XR_ITS ---
EXAMINATION: XR SHOULDER, RIGHT CLINICAL INFORMATION: right shoulder pain. work injury COMPARISON: None available. TECHNIQUE: Three views of the right shoulder. FINDINGS: The AC joint is intact. Minute marginal osteophyte is visible in the inferior glenoid and medial humeral head There is no dislocation. No fracture is identified. XR/XR shoulder RT min 2V IMPRESSION: Mild degenerative change. Electronically signed by: Robinson Mo MD 05/02/2025 01:53 PM EST
--- NOTE | ~2025-05-02 | CT_ITS ---
EXAMINATION: CT CERVICAL SPINE WITHOUT CONTRAST CLINICAL INFORMATION: Whiplash injury. COMPARISON: None available. TECHNIQUE: Contiguous axial images through the cervical spine using 3 mm collimation with bone and soft tissue algorithm. Sagittal and coronal reformatted images acquired. This CT examination was performed using dose optimization techniques as appropriate, variously including the following: *Automated exposure control *Adjustment of mA and/or kV according to patient size (this includes techniques or standardized protocols for targeted exams where dose is matched to indication/reason for exam; i.e. extremities or head) *Use of iterative reconstruction technique DLP: 210.2 mGy-cm FINDINGS: Craniocervical junction is intact with normal position of the occipital condyles and the lateral masses of C1. Degenerative changes in the periodontal C1 region. Multilevel marginal osteophyte formation and endplate sclerosis, subchondral cyst formation, endplate irregularity and decreased intervertebral disc height, C3 C7. Calcification of the posterior longitudinal Ligament C4 C7 pronounced at C4-5. Bilateral facet joint hypertrophy. C1 is intact. C2 is intact. C3 is intact. C4 is intact. C5 is intact. C6 is intact. C7 is intact. No prevertebral compartment hematoma. Central spinal canal stenosis secondary to posterior marginal osteophyte formation and ossification of the posterior longitudinal ligament from C4 to C7. Heterogeneous nodular enlarged thyroid gland without dominant nodule. Tympanic cavities and mastoid cells are aerated.. CT/CT cervical spine wo IV con IMPRESSION: No acute fracture or trauma-related listhesis. Multilevel cervical spondylosis C3 C7. 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 Fleischner guidelines were followed. Electronically signed by: Jono Dykes MD 05/02/2025 02:31 PM [facility]
[2025-05-02 13:04] VITALS: BP 140/90; PULSE 64; O2SAT 95
[2025-05-02 13:14] VITALS: BP 112/76; PULSE 62; RESP 18; TEMP 36.3; O2SAT 96; BMI 23.3
--- NOTE | 2025-05-02 13:23 | ED_ITS ---
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 Patient states she was at work when she lifted her head up and smacked the left side of her head on the corner of machinery which knocked her back but patient did not fall, hit her head on the ground or lose consciousness. Additionally, patient endorses chronic right shoulder pain today that worsened after hitting her head at work. Denies chest pain, shortness of breath, headache, visual changes, abdominal pain, nausea, vomiting, lightheadedness, dizziness, urinary symptoms MD complaint: hit head on machinery at work Related Data Home Medications ?Medication ?Instructions ?Recorded ?Confirmed cholecalciferol (vitamin D3) 25 1 cap PO DAILY 2 1 04/10/25 mcg (1,000 unit) capsule (Vitamin D3) Previous Rx's ?Medication ?Instructions ?Recorded pantoprazole 40 mg tablet,delayed 40 mg PO DAILY #60 t abs 08/12/23 release famotidine 20 mg tablet (Pepcid) 20 mg PO BEDTIME #30 tabs 09/10/23 fluvoxamine 50 mg tablet 150 mg (3 x 50 mg) PO DAILY #270 11/08/24 tabs ibuprofen 600 mg tablet 600 mg PO Q6H PRN pain #60 t abs 11/27/24 acetaminophen 500 mg tablet 500 - 1,000 mg (1 - 2 x 50 0 mg) PO 05/03/25 (Tylenol Extra Strength) Q6H PRN pain #30 tabs Allergies Allergy/AdvReac Type Severity Reaction Status Date / Time No Known Allergies Allergy Verified 05/03/25 12:40 Review of Systems Review of Systems: Yes all other systems are reviewed and are negative PMFSH Past Medical History Attestation statement: The following information was validated with the patient. Source: old records reviewed and nursing notes reviewed Medical History History of colitis Duodenitis Hiatal hernia Schatzki's ring Gastritis Partial obstruction of small intestine Depression Anxiety Surgical History History of esophagogastroduodenoscopy (EGD) Status post right breast lumpectomy (01/25/23) History of colonoscopy (08/23/24) History of left breast biopsy (02/02/19) Hx of hysterectomy (2005) Hx of lumpectomy (02/13/19) Family History Family History Father Mesothelioma Emphysema lung Maternal Grandmother Heart attack Paternal Aunt Aneurysm Social History Social History Household Members: Significant Other Housing: House Are you a primary rn care transition to a significant other at home: No Do you presently have visiting nurse or other home services: No Alcohol intake: former Patient Tobacco Use Status: Current everyday Tobacco user Tobacco use type: Cigar Cigarette Packs Per Day: 1 Cigarettes Per Day: 2 Substance Use Type: Marijuana Current occupational status: employed 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 Physical Exam ED Vital Signs: Vital Signs - 24 hr 05/02/25 13:14 Temperature 97.3 F Pulse Rate 62 Respiratory Rate 18 Blood Pressure 112/76 Pulse Oximetry 96 Oxygen Delivery Method Room Air BMI result Body Mass Index 23.3 GENERAL APPEARANCE: ?AxOx4, generally well-appearing, no acute distress. HEENT: ?NC, AT. MMM. EOMI, clear conjunctiva, oropharynx clear. NECK: ?Supple without lymphadenopathy.? No stiffness or restricted ROM, no cervical spinal tenderness, no bony step-offs palpated, mild TTP of the trapezius muscle into the right shoulder HEART:? Normal rate and regular rhythm, normal S1/S2, no m/r/g LUNGS:? CTAB, moving air well. No crackles or wheezes are heard. ABDOMEN: ?Soft, nontender, nondistended with good bowel sounds heard. BACK: No CVAT, no obvious deformity. EXTREMITIES: ?Without cyanosis, clubbing or edema. R shoulder TTP of trapezius muscle, and anterior aspect, full ROM intact, SILT, radial pulses 2+, the limb is neurovascularly intact NEUROLOGICAL: ?Grossly nonfocal. Alert and oriented, moving all 4 extremities. Observed to ambulate with normal gait. Skin: ?Warm and dry without any rash. Course Course Course Narrative: RME: 55-year-old female presents to ED for work injury. Patient was at work and she hit her left side of the head, shooting which caused her to have whiplash movement and right shoulder pain. 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 Patient states she was at work when she lifted her head up and smacked the left side of her head on the corner of machinery which knocked her back but patient did not fall, hit her head on the ground or lose consciousness. Additionally, patient endorses chronic right shoulder pain today that worsened after hitting her head at work. 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 Patient with mild pain of the R shoulder after hitting her head at work. Pain is very mild, no radicular symptoms, the limb is neurovascularly intact with full ROM. CT head/brain and CT C-spine negative for acute fracture or dislocation. I offered patient p.o. Tylenol however patient states that she is not in any significant pain and refused medication. 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 Patient is well enough to go home for self care. Patient is in agreement with the plan. Differential Diagnosis Differential Diagnoses: The differential diagnosis associated with the presentation includes ICH Concussion Headache Musculoskeletal pain Admission/Observation Consideration of admission/observation: Escalation of care including admission/observation considered Independent Interpretation I performed an independent interpretation of an: Plain X-Ray and CT Scan Interpretation: I personally interpreted the CT head/brain which was negative for acute intracranial pathology, I agree with the radiologist's interpretation I personally interpreted the CT C-spine which reveals central spinal stenosis, I agree with the radiologist's interpretation XR R shoulder reveals degenerative changes, I agree with the radiologists interpretation Radiology Impression Discussion of test interpretation with radiology: I have reviewed the radiologist's reading. Radiologist Impression: CT head/brain FINDINGS: There is no evidence of acute intracranial hemorrhage or edematous large vessel territorial infarction. No abnormal mass effect or midline shift is seen. Rosado to white matter differentiation is well preserved. No abnormal extra-axial fluid collections are identified. There is mild sulcal prominence in the superior portion of the brain, with mild volume loss in the frontal region. No acute calvarial fracture. Paranasal sinuses and mastoid air cells are well-aerated. CT/CT head/brain wo IV con IMPRESSION: No CT evidence of acute intracranial hemorrhage. Chronic changes as detailed above. Electronically signed by: Hal Gutierrez MD 05/02/2025 02:32 PM [facility] Dictated By: Hal Gutierrez MD Signed By: <Electronically signed by Hal Gutierrez MD in OV> 05/02/[address] C-spine FINDINGS: Craniocervical junction is intact with normal position of the occipital condyles and the lateral masses of C1. Degenerative changes in the periodontal C1 region. Multilevel marginal osteophyte formation and endplate sclerosis, subchondral cyst formation, endplate irregularity and decreased intervertebral disc height, C3 C7. Calcification of the posterior longitudinal Ligament C4 C7 pronounced at C4-5. Bilateral facet joint hypertrophy. C1 is intact. C2 is intact. C3 is intact. C4 is intact. C5 is intact. C6 is intact. C7 is intact. No prevertebral compartment hematoma. Central spinal canal stenosis secondary to posterior marginal osteophyte formation and ossification of the posterior longitudinal ligament from C4 to C7. Heterogeneous nodular enlarged thyroid gland without dominant nodule. Tympanic cavities and mastoid cells are aerated.. CT/CT cervical spine wo IV con IMPRESSION: No acute fracture or trauma-related listhesis. Multilevel cervical spondylosis C3 C7. 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 Fleischner guidelines were followed. Electronically signed by: Jono Dykes MD 05/02/2025 02:31 PM EST RP Dictated By: Jono Randhawa MD Signed By: <Electronically signed by Jono Corona MD in OV> 05/02/25 1431 XR R shoulder FINDINGS: The AC joint is intact. Minute marginal osteophyte is visible in the inferior glenoid and medial humeral head There is no dislocation. No fracture is identified. XR/XR shoulder RT min 2V IMPRESSION: Mild degenerative change. Electronically signed by: Robinson Mo MD 05/02/2025 01:53 PM EST RP Dictated By: Robinson Mo MD Signed By: <Electronically signed by Robinson Mo MD in OV> 05/02/25 1353 Independent Historian Clinical information obtained from an independent historian. History obtained from or confirmed by: EMS External Record Review External record reviewed: Inpatient record, Office record and Outpatient record Chronic Conditions Patient?s care impacted by: Other (DCIS of the breast, duodenitis, Schatzki's ring, hiatal hernia,) Discharge Plan Discharge Clinical Impression: Contusion of head Patient Disposition: Home, Self-Care Additional Instructions: You were evaluated in the emergency department after hitting your head at work on machinery. The CT of your head/brain was negative for fracture or bleeding. The CT of your C-spine does show central canal stenosis at the level of C4-C7. The x-ray of your right shoulder does show some degenerative changes (arthritic changes) which is most likely causing pain in this location. I have placed referral to [facility] for further evaluation of central canal stenosis. Please call their office as they will not call you. To manage headache and/or pain at home you can take 500 mg of Tylenol, 400 mg of ibuprofen every 6 hours. Please return to the emergency department if you experience worsening pain, numbness and tingling of your arms or hands, inability to move the arms or hands, headache and visual changes, nausea, vomiting or any other new/worsening/concerning symptoms. Prescriptions: No Action fluvoxamine 50 mg tablet 150 mg PO DAILY Qty: 270 1RF cholecalciferol (vitamin D3) [Vitamin D3] 25 mcg (1,000 unit) capsule 1 cap PO DAILY pantoprazole 40 mg tablet,delayed release (DR/EC) 40 mg PO DAILY Qty: 60 2RF acetaminophen [Tylenol Extra Strength] 500 mg tablet 500 - 1,000 mg PO Q6H PRN (Reason: pain) Qty: 30 0RF famotidine [Pepcid] 20 mg tablet 20 mg PO BEDTIME Qty: 30 3RF ibuprofen 600 mg tablet 600 mg PO Q6H PRN (Reason: pain) Qty: 60 0RF Referrals: [facility] [Provider Group, Neurosurgery] Interventions: ED Discharge Assessment Last Done: 05/02/25 16:01 Discharge Date/Time: 05/02/25 16:02 Print Language: Swedish
[2025-05-02 16:01] VITALS: BP 112/76; PULSE 62; RESP 18; TEMP 36.3; O2SAT 96
--- OUTSIDE RECORDS SUMMARY | 2025-05-02 18:35 | XMS_ITS | Patient Health Record ---
Author Organization [facility] Address [address] [place] [address] Care Team Providers Care Equity Director Name Role Phone Nan Alejandro Primary Care Provider Jerry Parks Unavailable [phone] Allergies No Known Allergies Reason For Referral [...] W/U Status Risk Notes Problem Plantar wart (63097605) Plantar wart (B07.0) Active confirmed Chronic Problem Onychomycosis (630218241) Tinea unguium (B35.1) Active confirmed Vital Signs Heart Rate 73 /min 11/09/2024 Blood pressure diastolic 71 mm Hg 03/13/2025 Height 5ft 2in in 03/13/2025 Blood pressure systolic 120 mm Hg 03/13/2025 Weight 120 lbs 03/13/2025 BMI 21.95 kg/m2 03/13/2025 Procedures Procedure Date Ordered Date Performed Result Body Sit e 66255-Wrht Destruction, -05/29/2024 N/A 99545-Ksru Destruction, 06-1306/28/2024 N/A 00408-Vjvt Destruction, 06-1307/31/2024 N/A 39443-Ablq Destruction, 06-1308/31/2024 N/A 55536-Ohab Destruction, 06-1310/04/2024 N/A 83638-Xytr Destruction, 06-1311/09/2024 N/A 49392-Kzel Destruction, 06-1312/04/2024 N/A 14776-Ulhu Destruction, 06-1303/13/2025 N/A Encounters Encounter Location Date Provider Diagnosis [facility] [address] 05/29/2024 Jerry Mk Right foot pain M79.671 ; Plantar wart B07.0 and Left foot pain M79.[address] [facility] [address] 06/28/2024 Jerry Mk Right foot pain M79.671 ; Plantar wart B07.0 ; Left foot pain M79.672 and Tinea pedis of both feet B35.[address] [facility] [address] 07/31/2024 Jerry Mk Right foot pain M79.671 ; Plantar wart B07.0 ; Left foot pain M79.672 and Tinea pedis of both feet B35.3 [facility] [address] [place] [address] 08/31/2024 Jerry Mk Right foot pain M79.671 ; Plantar wart B07.0 and Left foot pain M79.[address] [address] 10/04/2024 Jerry Mk Right foot pain M79.671 ; Plantar wart B07.0 and Left foot pain M79.[address] [address] 11/09/2024 Jerry Mk Right foot pain M79.671 ; Plantar wart B07.0 and Left foot pain M79.[address] [address] 12/04/2024 Jerry Mk Right foot pain M79.671 ; Plantar wart B07.0 ; Left foot pain M79.672 ; Pain in left ankle and joints of left foot M25.572 ; Bursitis of left foot M77.52 ; Hallux valgus (acquired), left foot M20.12 and Hallux limitus of left foot M20.5X2 [address] [address] 03/13/2025 Jerry Mk Right foot pain M79.671 ; Plantar wart B07.0 and Left foot pain M79.[address] [address] 05/29/2024 [facility] [address] [address] 05/30/2024 [facility] [address] [address] 11/09/2024 [facility] [address] [address] 01/01/2025 Jerry Terrazas Assessments Encounter Date Diagnosis (ICD Code) Assessment Notes Treatment Notes Treatment Clinical Notes Section Notes 05/29/2024 Plantar wart (ICD-10 - B07.0) Chronic [...] 05/29/2024 Left foot pain (ICD-10 - M79.672) 07/31/2024 [...] X ray : Foot, left 3V 12/01/2023 90185-CXYWOUJ NAIL, 6 OR MORE 08/05/2023 55318-KMZPGFI NAIL, 6 OR MORE 04/03/2021 75977-MMEZPBT NAIL, 6 OR MORE 07/25/2020 91757-LHQCQLQ NAIL, 6 OR MORE 09/11/2021 86236-XMEQVDW NAIL, 6 OR MORE 07/01/2022 98964-BMXOVZA NAIL, 6 OR MORE 06/18/2021 83882-HHPUAMS NAIL, 6 OR MORE 04/01/2023 67173-Sbon Destruction, 1-14 05/03/2023 21534-Olsb Destruction, -14 06/03/2023 76758-Cuar Destruction, 1-14 07/05/2023 45300-Amrn Destruction, -14 08/05/2023 26375-Vgme Destruction, -14 06/18/2021 36346-Qytg Destruction, -14 08/07/2021 20976-Hgvi Destruction, -14 09/11/2021 40268-Hjpv Destruction, -14 07/30/2022 66251-Vtfk Destruction, -14 08/31/2022 27164-Nlvv Destruction, -14 10/12/2022 74397-Gakl Destruction, -14 11/16/2022 63157-Gsmi Destruction, 1-14 12/14/2022 61095-Hbcd Destruction, -14 01/21/2023 16211-Tguu Destruction, 1-14 02/24/2023 16976-Pztv Destruction, 06-1304/01/2023 01451-Lbot Destruction, 06-1310/16/2021 18012-Iwbe Destruction, 06-1312/17/2021 74725-Dyqi Destruction, 06-1301/29/2022 14244-Entn Destruction, 06-1303/04/2022 27115-Wqkt Destruction, 06-1304/09/2022 24744-Hfbx Destruction, 06-1305/20/2022 98371-Yzej Destruction, 06-1307/01/2022 89275-Zfoe Destruction, 06-1307/25/2020 97120-Snzr Destruction, 06-1308/21/2020 58458-Xjls Destruction, 06-1309/12/2020 90285-Howx Destruction, 06-1310/03/2020 43699-Dnli Destruction, 06-1310/24/2020 57174-Kmwy Destruction, 06-1311/25/2020 25873-Bwtz Destruction, 06-1312/19/2020 85017-Ecdu Destruction, 06-1301/13/2021 34691-Jmkt Destruction, 06-1302/19/2021 11322-Eshe Destruction, 06-1304/03/2021 54454-Dqey Destruction, 06-1304/28/2021 14059-Qgxf Destruction, 06-1306/27/2020 14089-Kxnd Destruction, 06-1309/09/2023 70570-Xryn Destruction, 06-1311/03/2023 26469-Zzyi Destruction, 06-1312/01/2023 30657-Eibx Destruction, 06-1312/27/2023 04995-Ijkj Destruction, 06-1301/26/2024 68772-Abiw Destruction, 06-1302/24/2024 00214-Stbi Destruction, 06-1303/27/2024 48120-Smsa Destruction, 06-1304/24/2024 32423-Efig Destruction, 06-1305/29/2024 83347-Pqqn Destruction, 06-1306/28/2024 13380-Rwcv Destruction, 06-1307/31/2024 08481-Wach Destruction, 06-1308/31/2024 47200-Ptbg Destruction, 06-1310/04/2024 28929-Lpoj Destruction, 06-1311/09/2024 64892-Ifam Destruction, 06-1312/04/2024 49348-Vaya Destruction, 06-1303/13/2025 Next Appt Details Provider Name:Jerry Terrazas , 05/11/2025 01:45:00 PM, [address] [place] [address], [phone], Insurance Providers Payer Name Payer Address Payer Phone Subscriber Number Group Number Insured Name Patient Relationship to Insured Coverage Start Date Coverage End Date [facility] [address] [place] [address] [id number] Yisel Mejias Self - patient is the insured Medical (General) History Medical History History ICD Code Anxiety Back,Hip,and Knee pain Broken bones Chicken pox Depression Headaches Warts Surgical History Surgery Date(Month/Year) hysterectomy 2005 lumpectomy 2019 lumpectomy 12/2022 colonoscopy 07/2024 Hospitalization History Reason Date(Month/Year) [facility] Endoscopy 08/12/2023 Espitia- small bowel obstruction 10/04- 022 Espitia- bowel obstruction 08/2021
--- OUTSIDE RECORDS SUMMARY | 2025-05-02 18:35 | XMS_ITS | Clinical Summary ---
Author Organization [facility] Address [address] [place] [address] Phone Care Team Providers Care Cloth Mercerizer Back Tender Name Role Phone Samuel Patel MD Primary [...] every 6 (six) hours as needed. PARTIAL FILL:11453 Active Active Problems Problem Noted Date Diagnosed Date DCIS (ductal carcinoma in situ) of breast 2018 Cancer Staging:Pathologic: pT1mi, pN0(sn), cM0, ER: Negative, DE: Negative - Signed by Jong Guy MD [...] PPO CIGNA PPO CIGNA PPO Care Teams Cloth Mercerizer Back Tender Relationship Specialty Start Date End Date Samuel Patel MD [address] [place] [address] [place] [address] PCP - General Internal Medicine 03/03/19 Additional Source Comments The information contained in this document represents components of the legal health record. It is not the complete legal health record.[facility]
--- OUTSIDE RECORDS SUMMARY | 2025-05-02 18:35 | XMS_ITS | Patient Health Record ---
Author Organization [facility] Address [address] [place] [address] Care Team Providers Care High School Math Tutor Name Role Phone Amanda (RETIRED) Samuel PAK Primary Care Provide r Unavailable Mrakie Ng Jr Unavailable [phone] Reason For Referral No Information Medications Medication SIG (Take, Route, Frequency, Duration) Notes Start Date End Date Status Advil 200 MG Tablet 1 tablet with food o r milk as needed Orally NEEDED Active MiraLax (colon prep) 8.3 ounce (238) grams mixed with Gatorade or Crystal Light orally begin at 5:00 p.m. the day before the procedure; Duration: 1 day 02/23/2019 Active Vitamin D3 1000 UNIT Capsule 1 capsule Orally Once a day; Duration: 30 day(s) Active fluvoxaMINE Maleate ER 150 MG Capsule Extended Release 24 Hour 1 capsule at bedtime Orally Once a day; Duration: 30 day(s) Active Immunizations Vaccine Route Administration Date Status Comme nts Influenza Unknown 02/23/2019 Refused Social History Tobacco Use: Social History Observation Description Date Details (start date - stop date) Former Smoker NA - NA Social History Drugs/Alcohol: Social Info Question Answer Notes Alcohol Screen Did you have a drink containing alcohol in the past year? No Points 0 Interpretation Negative Tobacco Use: Social Info Question Answer Notes Tobacco Use/Smoking Patient is a former smoker How long has it been since you last smoked? 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 Problems Problem Type SNOMED Code ICD Code Onset Dates Problem Status W/U Status Risk Notes Problem Colon cancer screening (596213192) Colon cancer screening (Z12.11) Active confirmed Problem Pre-procedure evaluation check (278315999) Encounter for other preprocedural examination (Z01.818) Active confirmed Plan Of Treatment Future Test Test Name Order Date COLONOSCOPY 02/23/2019 Insurance Providers Payer Name Payer Address Payer Phone Subscriber Number Group Number Insured Name Patient Relationship to Insured Coverage Start Date Coverage End Date [employer] [address] [place] [address] [phone] [id number] GARCIA RUSSELL Self - patient is the insured Medical (General) History Medical History History ICD Code anxiety/depression breast cancer/radiation therapy Surgical History Surgery Date(Month/Year) lumpectomy 01/2019 partial hysterectomy
--- OUTSIDE RECORDS SUMMARY | 2025-05-02 18:35 | XMS_ITS | Encounter Summary ---
Author Organization [facility] Address [address] [place] [phone] Phone Care Team Providers Care Urban Anthropologist Name Role Phone Samuel Patel MD Primary Care Provider Reason for Referral * - Closed Specialty Diagnoses / Procedures Referred By Contac t Referred To Contact Procedures NM Other Outside (No Interpretation) System, Provider Not In, PhD [facility] [address] [place] [address] Referral ID Status Reason Start Date Expiration Date Visits Re quested Visits Authorized [id number] Closed 03/06/2019 03/05/2020 1 1 Encounter Details Date Type Department Care Team (Late st Contact Info) Description 03/06/2019 Ancillary Orders [facility],Outside Imaging [address] [place], [place] [id number] System, Provider Not In, [facility] [address] [place] [address] Social History Tobacco Use Types Packs/Day Years [...] on filedocumented in this encounter Care Teams Urban Anthropologist Relationship Specialty Start Date End Date Samuel Patel MD [address] [place] [address] [place] [address] PCP - General Internal Medicine 03/03/19 documented as of this encounter Additional Source Comments The information contained in this document represents components of the legal health record. It is not the complete legal health record.[facility]
== END 2025-05-02 16:02 | disposition home or self-care (01) ==
PROVIDERS: Emergency Provider Emergency Medicine; PCP Physician Assistant
DX: S00.93XA Contusion of unspecified part of head, initial encounter (principal); W31.82XA Contact with other commercial machinery, initial encounter; Y93.9 Activity, unspecified; Y92.9 Unspecified place or not applicable; Y99.0 Civilian activity done for income or pay; K29.80 Duodenitis without bleeding; K22.2 Esophageal obstruction; K44.9 Diaphragmatic hernia without obstruction or gangrene; M25.511 Pain in right shoulder; K29.70 Gastritis, unspecified, without bleeding; F32.A Depression, unspecified; F41.9 Anxiety disorder, unspecified; F17.210 Nicotine dependence, cigarettes, uncomplicated; F12.90 Cannabis use, unspecified, uncomplicated
CPT/HCPCS: 70450; 72125; 73030; 99282; 99284

== ENCOUNTER → 2025-05-02 13:22 | Outpatient (BNV) | payer BC, SELFPAY | PROVIDERS: Visit Provider Radiology Diagnostic Radiology | DX: S13.4XXA Sprain of ligaments of cervical spine, initial encounter (principal); M47.812 Spondylosis without myelopathy or radiculopathy, cervical region; M48.02 Spinal stenosis, cervical region; S09.90XA Unspecified injury of head, initial encounter; M25.512 Pain in left shoulder; M19.011 Primary osteoarthritis, right shoulder | CPT/HCPCS: 70450; 72125; 73030 ==

== ENCOUNTER 2025-05-03 12:08 | Emergency (ER) | payer OTHER, BC, SELFPAY ==
--- OUTSIDE RECORDS SUMMARY | 2024-12-11 10:30 | XMS_ITS ---
Author Organization [facility] Address [address] [place] [address] Care Team Providers Care Evaluation Advisor Name Role Phone Nan Alejandro Primary Care Provider Unavailabl Jerry Miller Unavailable [phone] Encounters Encounter Location Date Provider [facility] [address] 12/11/2024 Jerry Terrazas Plan Of Treatment Next Appt Details Provider Name:Jerry Terrazas , 05/11/2025 01:45:00 PM, [address] [place], [address], Progress Notes * Yisel RUSSELLDOB:[birth year] (55 yo F)Acc No.[id number]:12/11/2024 Progress Notes Patient: Yisel MEDINA Provider: Ania Terrazas DPM :1970 A ge:54 Y S ex:Female Date:12/11/2024 Address:[address] [place] [address] Pcp:Nan Alejandro Subjective: * Chief Complaints: * [...] 12/11/2024 Generated for Nneka west/Swetha/Alondra on: 1 07/04/2024 09:55 PM EST
--- OUTSIDE RECORDS SUMMARY | 2025-01-03 10:30 | XMS_ITS ---
Author [facility] Address [address] [place] [address] Care Team Providers Care Certified Dental Assistant Name Role Phone Nan Alejandro Primary Care Provider Unavailabl Jerry Miller Unavailable [phone] Encounters Encounter Location Date Provider [facility] [address] 01/03/2025 Jerry Terrazas Plan Of Treatment Next Appt Details Provider Name:Jerry Terrazas , 05/11/2025 01:45:00 PM, [address] [place], [address], Progress Notes * Yisel RUSSELLDOB:[birth year] (55 yo F)Acc No.[id number]:01/03/2025 Progress Notes Patient: Yisel MEDINA Provider: Ania Terrazas DPM :1970 A ge:54 Y S ex:Female Date:01/03/2025 Address:[address] [place] [address] Pcp:Nan Alejandro Subjective: * Chief Complaints: * [...] 01/03/2025 Generated for Nneka west/Swetha/Alondra on: 1 07/04/2024 09:56 PM EST
[2025-05-03 12:39] VITALS: BP 119/85; PULSE 74; RESP 16; TEMP 36.3; O2SAT 96; BMI 22.3
--- NOTE | 2025-05-03 15:17 | ED.GENADULT ---
HPI - General Adult General Chief complaint: Head Injury Stated complaint: Dizziness Time Seen by Provider: 05/03/25 15:28 Source: patient and RN notes reviewed Mode of arrival: ambulatory Limitations: no limitations History of Present Illness ED Provider: Yisel Lopez PA-C HPI narrative: This is a 55-year-old female, with a past medical history of DCIS of the breast, duodenitis, Schatzki ring, hiatal hernia, who presents emergency department with concerns of lightheadedness with nausea and headache. 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 Patient was seen here in the emergency room where she had a CT head and neck performed. She also had an x-ray of her right shoulder at the time. CT of the brain revealed no acute intracranial hemorrhage. Patient reports that this head injury occurred while she was walking quickly by a computer monitor and struck her forehead on a piece of plastic. She did not lose consciousness. She is not on anticoagulation. She states that she did feel lightheaded and dizzy after the incident however states that this has since resolved. She states that this morning she was feeling well however upon arriving to her work she felt very fatigued, had a slight headache and some nausea. She denies any severe headache, dizziness, blurred vision, double vision, or vomiting. She has been taking ibuprofen which has provided her with some relief. No other complaints or concerns at this time. MD complaint: Nausea, headache Related Data Home Medications ?Medication ?Instructions ?Recorded ?Confirmed cholecalciferol (vitamin D3) 25 1 cap PO DAILY 06/28/20 04/10/25 mcg (1,000 unit) capsule (Vitamin D3) Previous Rx's ?Medication ?Instructions ?Recorded pantoprazole 40 mg tablet,delayed 40 mg PO DAILY #60 tabs 08/12/23 release famotidine 20 mg tablet (Pepcid) 20 mg PO BEDTIME #30 tabs 09/10/23 fluvoxamine 50 mg tablet 150 mg (3 x 50 mg) PO DAILY #270 11/08/24 tabs ibuprofen 600 mg tablet 600 mg PO Q6H PRN pain #60 tabs 11/27/24 acetaminophen 500 mg tablet 500 - 1,000 mg (1 - 2 x 500 mg) PO 05/03/25 (Tylenol Extra Strength) Q6H PRN pain #30 tabs Allergies Allergy/AdvReac Type Severity Reaction Status Date / Time No Known Allergies Allergy Verified 05/03/25 12:40 Review of Systems Review of Systems: Constitutional : No Fever, No Chills ENT/Mouth : No sore throat, No Rhinorrhea Eyes: No Eye Pain, No Swelling, No Redness Cardiovascular : No Chest Pain, No SOB Respiratory : No Cough, No Sputum Gastrointestinal : No Nausea, No Vomiting, No Diarrhea, No abdominal Pain Genitourinary : No Dysuria, No Hematuria Musculoskeletal : No joint pain, No Myalgias, No Joint Swelling Skin : No Skin Lesions Neuro : No Weakness, No Numbness, + Headache All other systems reviewed and are negative Yes all other systems are reviewed and are negative Constitutional: Constitutional: Reports as per [facility] Past Medical History Medical History History of colitis Duodenitis Hiatal hernia Schatzki's ring Gastritis Partial obstruction of small intestine Depression Anxiety Surgical History History of esophagogastroduodenoscopy (EGD) Status post right breast lumpectomy (01/25/23) History of colonoscopy (08/23/24) History of left breast biopsy (02/02/19) Hx of hysterectomy (2005) Hx of lumpectomy (02/13/19) Family History Family History Father Mesothelioma Emphysema lung Maternal Grandmother Heart attack Paternal Aunt Aneurysm Social History Social History Household Members: Significant Other Housing: House Are you a primary care technician to a significant other at home: No Do you presently have visiting nurse or other home services: No Alcohol intake: former Patient Tobacco Use Status: Current everyday Tobacco user Tobacco use type: Cigar Cigarette Packs Per Day: 1 Cigarettes Per Day: 2 Substance Use Type: Marijuana Current occupational status: employed 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 Physical Exam ED Vital Signs: Vital Signs - 24 hr 05/03/25 15:56 05/03/25 16:12 Temperature 97.9 F 97.9 F Pulse Rate 70 70 Respiratory Rate 16 16 Blood Pressure 121/80 121/80 Pulse Oximetry 96 96 Oxygen Delivery Method Room Air Room Air BMI result Body Mass Index 22.3 Const General: cooperative, comfortable and no acute distress Orientation/consciousness: patient oriented x3 Limitations: no limitations HENMT Head: Yes normal to inspection, Yes normocephalic and Yes atraumatic Ears: hearing grossly normal bilaterally General nose exam: Normal external nose present Face and sinus: Yes normal facial exam Mouth: Normal oral and palatal mucosa present, oropharynx normal and moist mucous membranes Throat: Yes posterior oropharynx normal Eyes General: appearance normal, both eyes and all related structures Eyelids: Yes eyelids normal Conjunctivae: conjunctivae normal Sclerae: sclerae normal Pupils: Equal, round and reactive pupils present EOM: EOMs intact bilaterally Neck Neck: Yes normal visual inspection, Yes full ROM and Yes no lymphadenopathy Lymphatic: no lymphadenopathy noted Chest Chest palpation & inspection: normal inspection of the chest Resp Effort & Inspection: normal respiratory effort and able to speak in complete sentences Auscultation: clear to auscultation bilaterally, no crackles, no rales, no rhonchi and no wheezes Cardio Rate: regular rate Rhythm: regular rhythm Heart sounds: S1 normal heart sound present and S2 normal heart sound present GI Inspection: Yes normal to inspection Skin General skin exam: no rashes or lesions noted Trauma: no lacerations or abrasions Wounds: no wounds Neuro General: patient oriented x3 and moves all extremities Cranial nerves: Yes CN's II-XII intact bilaterally and Yes Equal, round and reactive pupils present Gait exam (Neuro): Normal gait present Motor exam (neuro): 5/5 motor strength present throughout and Pronator motor function not present Coordination: qpve-ax-jdxm test normal Pupils: Normal pupillary reactivity/response: bilateral Extrem General: Yes normal to inspection Right upper extremity: normal to inspection Left upper extremity: normal to inspection Right lower extremity: normal to inspection Left lower extremity: normal to inspection NIH Stroke Scale Internal: Initial- Upon Arrival Level of Consciousness: Alert Level of Consciousness Questions: Answers both questions correctly Level of Consciousness Commands: Performs both tasks correctly Best Gaze: Normal Visual: No visual loss Facial Palsy: Normal Motor Arm (Right): No drift Motor Arm (Left): No drift Motor Leg (Right): No drift Motor Leg (Left): No drift Limb Ataxia: Absent Sensory: Normal Best Language: No aphasia Dysarthia: Normal Extinction and Inattention: No abnormality Score: 0 Course Course Course Narrative: RME: 55 yold female how hit her head yesterday at here with nausea and headache. patietn had normal head CT scan that occurred yesterday. Medical Decision Making Medical Decision Making [facility] Narrative: This is a 7-cadb[age]f-female who presents to the ER with a complaint of ongoing headache, fatigue, and nausea since yesterday. On arrival, pt is well appearing, speaking in full sentences. Patient is neurologically intact. She was seen here yesterday and received a CT head and neck revealing no acute findings. Patient has had no red flag symptoms to suggest intracranial process. Patient has had mild headache, nausea, and fatigue. Discussed risks and benefits of read performing CT imaging. Given that she has not had worsening of her symptoms, we are deferring this at this time. Symptoms consistent with postconcussive syndrome, will discharge with strict return precautions. She understands and agrees with plan. She will follow-up with her PCP. Patient stable for discharge Differential Diagnosis Differential Diagnoses: The differential diagnosis associated with the presentation includes Headache, postconcussive syndrome, ICH-unlikely, concussion Discharge Plan Discharge Clinical Impression: Post concussive syndrome Patient Disposition: Home, Self-Care Instructions: Post Concussion Syndrome (ED) Additional Instructions: You were seen in the emergency department and had a normal physical exam. You likely are exhibiting postconcussive syndrome. Postconcussive syndrome can cause physical issues such as headaches, dizziness, fatigue, nausea, and other symptoms. This can occur for several days up to several weeks or even longer after head injury. Physical and mental rest are very important to help with the healing process. Avoid prolonged screen time. Quiet dark rooms can also be beneficial further healing process. Alternating between ibuprofen and Tylenol can be beneficial for headaches. If you develop any new or worsening symptoms including but not limited to severe headache, changes in vision, severe weakness, dizziness, vomiting, please seek emergent care. Prescriptions: New acetaminophen [Tylenol Extra Strength] 500 mg tablet 500 - 1,000 mg PO Q6H PRN (Reason: pain) Qty: 30 0RF No Action fluvoxamine 50 mg tablet 150 mg PO DAILY Qty: 270 1RF cholecalciferol (vitamin D3) [Vitamin D3] 25 mcg (1,000 unit) capsule 1 cap PO DAILY pantoprazole 40 mg tablet,delayed release (DR/EC) 40 mg PO DAILY Qty: 60 2RF famotidine [Pepcid] 20 mg tablet 20 mg PO BEDTIME Qty: 30 3RF ibuprofen 600 mg tablet 600 mg PO Q6H PRN (Reason: pain) Qty: 60 0RF Stand Alone Forms: Work/School Release Interventions: ED Discharge Assessment Last Done: 05/03/25 16:12 Discharge Date/Time: 05/03/25 16:13 Print Language: S[place]an
[2025-05-03 15:56] VITALS: BP 121/80; PULSE 70; RESP 16; TEMP 36.6; O2SAT 96
[2025-05-03 16:12] VITALS: BP 121/80; PULSE 70; RESP 16; TEMP 36.6; O2SAT 96
--- OUTSIDE RECORDS SUMMARY | 2025-05-03 21:55 | XMS_ITS | Patient Health Record ---
[facility] Organization [facility] Address [address] [place] [address] Care Team Providers Care Thermocouple Tester Name Role Phone Nan Alejandro Primary Care Provider Jerry Parks Unavailable [phone] Allergies No Known Allergies Reason For Referral [...] W/U Status Risk Notes Problem Plantar wart (28975863) Plantar wart (B07.0) Active confirmed Chronic Problem Onychomycosis (722477413) Tinea unguium (B35.1) Active confirmed Vital Signs Heart Rate 73 /min 11/09/2024 Blood pressure diastolic 71 mm Hg 03/13/2025 Height 5ft 2in in 03/13/2025 Blood pressure systolic 120 mm Hg 03/13/2025 Weight 120 lbs 03/13/2025 BMI 21.95 kg/m2 03/13/2025 Procedures Procedure Date Ordered Date Performed Result Body Sit e 10042-Iiqy Destruction, -05/29/2024 N/A 26930-Ncql Destruction, 06-1306/28/2024 N/A 04782-Tame Destruction, 06-1307/31/2024 N/A 80338-Bmpw Destruction, 06-1308/31/2024 N/A 92821-Scdf Destruction, 06-1310/04/2024 N/A 10164-Byvy Destruction, 06-1311/09/2024 N/A 85017-Kjec Destruction, 06-1312/04/2024 N/A 62401-Bmpn Destruction, 06-1303/13/2025 N/A Encounters Encounter [facility] Date [facility] [address] [facility]/29/[facility] Jerry Mk Right foot pain M79.671 ; Plantar wart B07.0 and Left foot pain M79.672 [facility] [address] 06/28/2024 Jerry Mk Right foot pain M79.671 ; Plantar wart B07.0 ; Left foot pain M79.672 and Tinea pedis of both feet B35.[address] [facility] [address] 07/31/2024 Jerry Mk Right foot pain M79.671 ; Plantar wart B07.0 ; Left foot pain M79.672 and Tinea pedis of both feet B35.3 [facility] [address] [place] [address] 08/31/2024 Jerry Mk Right foot pain M79.671 ; Plantar wart B07.0 and Left foot pain M79.[address] [address] 10/04/2024 Jerry Mk Right foot pain M79.671 ; Plantar wart B07.0 and Left foot pain M79.[address] [address] 11/09/2024 Jerry Mk Right foot pain M79.671 ; Plantar wart B07.0 and Left foot pain M79.[address] [address] 12/04/2024 Jerry Mk Right foot pain M79.671 ; Plantar wart B07.0 ; Left foot pain M79.672 ; Pain in left ankle and joints of left foot M25.572 ; Bursitis of left foot M77.52 ; Hallux valgus (acquired), left foot M20.12 and Hallux limitus of left foot M20.5X2 [address] [address] 03/13/2025 Jerry Mk Right foot pain M79.671 ; Plantar wart B07.0 and Left foot pain M79.[address] [address] 05/29/2024 [facility] [address] [address] [facility] [address] [address] 11/09/2024 [facility] [address] [address] 01/01/2025 Jerry Terrazas Assessments Encounter Date Diagnosis [...] X ray : Foot, left 3V 12/01/2023 96897-QURDPTN NAIL, 6 OR MORE 08/05/2023 25686-ZUHJDYH NAIL, 6 OR MORE 04/03/2021 38954-ZXUFKKL NAIL, 6 OR MORE 07/25/2020 80603-IPJNRBX NAIL, 6 OR MORE 09/11/2021 47486-DDZXRDV NAIL, 6 OR MORE 07/01/2022 06513-YMNZVEZ NAIL, 6 OR MORE 06/18/2021 46536-IQIKYDL NAIL, 6 OR MORE 04/01/2023 16730-Mvlv Destruction, 1-14 05/03/2023 75768-Chyo Destruction, -14 06/03/2023 94398-Crxm Destruction, 1-14 07/05/2023 81149-Cvbe Destruction, -14 08/05/2023 47559-Ketd Destruction, -14 06/18/2021 76896-Yird Destruction, -14 08/07/2021 42633-Aamm Destruction, -14 09/11/2021 88139-Vfrd Destruction, -14 07/30/2022 77432-Ufcx Destruction, -14 08/31/2022 58598-Jlyt Destruction, -14 10/12/2022 03663-Vmtd Destruction, -14 11/16/2022 10534-Rsnw Destruction, 1-14 12/14/2022 93548-Pjbh Destruction, -14 01/21/2023 32911-Ryaj Destruction, 1-14 02/24/2023 96216-Qhvj Destruction, 06-1304/01/2023 75963-Obrt Destruction, 06-1310/16/2021 01418-Euge Destruction, 06-1312/17/2021 50499-Xcrp Destruction, 06-1301/29/2022 15240-Zjwv Destruction, 06-1303/04/2022 94686-Wizo Destruction, 06-1304/09/2022 71210-Ptpg Destruction, 06-1305/20/2022 01816-Yztu Destruction, 06-1307/01/2022 64701-Lxcm Destruction, 06-1307/25/2020 11553-Mfci Destruction, 06-1308/21/2020 13083-Iprh Destruction, 06-1309/12/2020 01566-Govd Destruction, 06-1310/03/2020 11543-Qzjk Destruction, 06-1310/24/2020 70559-Lypy Destruction, 06-1311/25/2020 72896-Xreb Destruction, 06-1312/19/2020 26374-Tysh Destruction, 06-1301/13/2021 55342-Syja Destruction, 06-1302/19/2021 26451-Dxzb Destruction, 06-1304/03/2021 66091-Fgqy Destruction, 06-1304/28/2021 39546-Ovnp Destruction, 06-1306/27/2020 05833-Qhua Destruction, 06-1309/09/2023 95333-Mdyc Destruction, 06-1311/03/2023 81783-Kesr Destruction, 06-1312/01/2023 62950-Faix Destruction, 06-1312/27/2023 84755-Mxki Destruction, 06-1301/26/2024 47610-Egxa Destruction, 06-1302/24/2024 64231-Qocy Destruction, 06-1303/27/2024 37388-Invi Destruction, 06-1304/24/2024 37882-Lxzb Destruction, 06-1305/29/2024 57637-Ciek Destruction, 06-1306/28/2024 14871-Rixg Destruction, 06-1307/31/2024 91426-Nnlp Destruction, 06-1308/31/2024 29134-Nusn Destruction, 06-1310/04/2024 47830-Btjd Destruction, 06-1311/09/2024 72349-Rerg Destruction, 06-1312/04/2024 87813-Vzsj Destruction, 06-1303/13/2025 Next Appt Details Provider Name:Jerry Terrazas , 05/11/2025 01:45:00 PM, [address] [place] [address], [phone], Insurance Providers Payer Name Payer Address Payer Phone Subscriber Number Group Number Insured Name Patient Relationship to Insured Coverage Start Date Coverage End Date [facility] [address] [place] [address] [id number] Yisel Mejias Self - patient is the insured Medical (General) History Medical History History ICD Code Anxiety Back,Hip,and Knee pain Broken bones Chicken pox Depression Headaches Warts Surgical History Surgery Date(Month/Year) hysterectomy 2005 lumpectomy 2019 lumpectomy 12/2022 colonoscopy 07/2024 Hospitalization History Reason Date(Month/Year) [facility] Endoscopy 08/12/2023 Espitia- small bowel obstruction 10/04- 022 Espitia- bowel obstruction 08/2021
--- OUTSIDE RECORDS SUMMARY | 2025-05-03 21:56 | XMS_ITS | Patient Health Record ---
Author Organization [facility] Address [address] [place] [address] Care Team Providers Care Almond Huller Name Role Phone Amanda (RETIRED) Samuel PAK Primary Care Provide r Unavailable Markie Ng Jr Unavailable [phone] Reason For Referral No Information Medications Medication [...] Status Risk Notes Problem Colon cancer screening (427279746) Colon cancer screening (Z12.11) Active confirmed Problem Pre-procedure evaluation check (542066185) Encounter for other preprocedural examination (Z01.818) Active confirmed Plan Of Treatment Future Test Test Name Order Date COLONOSCOPY 02/23/2019 Insurance Providers Payer Name Payer Address Payer Phone Subscriber Number Group Number Insured Name Patient Relationship to Insured Coverage Start Date Coverage End Date [employer] [address] [place] [address] [id number] GARCIA RUSSELL Self - patient is the insured Medical (General) History Medical History History ICD Code anxiety/depression breast cancer/radiation therapy Surgical History Surgery Date(Month/Year) lumpectomy 01/2019 partial hysterectomy
--- OUTSIDE RECORDS SUMMARY | 2025-05-03 21:56 | XMS_ITS | Clinical Summary ---
Author Organization [facility] Address [address] [place] [phone] Phone Care Team Providers Care Pluck Separator Name Role Phone Samuel Patel MD Primary [...] every 6 (six) hours as needed. PARTIAL FILL:[id number] Active Active Problems Problem Noted Date Diagnosed Date DCIS (ductal carcinoma in situ) of breast 2018 Cancer Staging:Pathologic: pT1mi, pN0(sn), cM0, ER: Negative, DC: Negative - Signed by Jong Guy MD [...] PPO CIGNA PPO CIGNA PPO Care Teams Pluck Separator Relationship Specialty Start Date End Date Samuel Patel MD [address] [place] [address] [place] [address] PCP - General Internal Medicine 03/03/19 Additional Source Comments The information contained in this document represents components of the legal health record. It is not the complete legal health record.[facility]
--- OUTSIDE RECORDS SUMMARY | 2025-05-03 21:56 | XMS_ITS | Encounter Summary ---
Author Organization [facility] Address [address] [place] [phone] Phone Care Team Providers Care Piccolo Mechanic Name Role Phone Samuel Patel MD Primary Care Provider Reason for Referral * - Closed Specialty Diagnoses / Procedures Referred By Contac t Referred To Contact Procedures NM Other Outside (No Interpretation) System, Provider Not In, PhD [facility] [address] [place] [address] Referral ID Status Reason Start Date Expiration Date Visits Re quested Visits Authorized [id number] Closed 03/06/2019 03/05/2020 1 1 Encounter Details Date Type Department Care Team (Late st Contact Info) Description 03/06/2019 Ancillary Orders [facility],Outside Imaging [address] [place], [place] [id number] System, Provider Not In, PhD [employer] [address] [place] [address] Social History Tobacco Use Types Packs/Day Years [...] on filedocumented in this encounter Care Teams Piccolo Mechanic Relationship Specialty Start Date End Date Samuel Patel MD [address] [place] [address] [place] [address] PCP - General Internal Medicine 03/03/19 documented as of this encounter Additional Source Comments The information contained in this document represents components of the legal health record. It is not the complete legal health record.[facility]
== END 2025-05-03 16:13 | disposition home or self-care (01) ==
PROVIDERS: Emergency Provider Emergency Medicine; PCP Physician Assistant
DX: F07.81 Postconcussional syndrome (principal); W22.09XA Striking against other stationary object, initial encounter; Y93.89 Activity, other specified; Y92.89 Other specified places as the place of occurrence of the external cause; Y99.0 Civilian activity done for income or pay
CPT/HCPCS: 99283

== ENCOUNTER 2025-05-07 13:47 | Outpatient (REF) | payer BC, SELFPAY ==
--- OUTSIDE RECORDS SUMMARY | 2024-12-11 10:30 | XMS_ITS ---
Author Organization [facility] Address [address] [place] [address] Care Team Providers Care Waste Water Or Water Plant Operator Name Role Phone Nan Alejandro Primary Care Provider Unavailabl Jerry Miller Unavailable [phone] Encounters Encounter Location Date [facility] [address] 12/11/2024 Jerry Terrazas Plan Of Treatment Next Appt Details Provider Name:Jerry Terrazas , 05/11/2025 01:45:00 PM, [address] [place], [address], Progress Notes * Yisel URSSELLDOB:[birth year] (55 yo F)Acc No.[id number]:12/11/2024 Progress Notes Patient: Yisel MEDINA Provider: Ania Terrazas DPM :1970 A ge:54 Y S ex:Female Date:12/11/2024 Address:[address] [place] [address] Pcp:Nan Alejandro Subjective: * Chief Complaints: * [...] 12/11/2024 Generated for Nneka west/Swetha/Alondra on: 1 07/08/2024 11:44 PM EST
--- OUTSIDE RECORDS SUMMARY | 2025-01-03 10:30 | XMS_ITS ---
Author Organization [facility] Address [address] [place] [address] Care Team Providers Care Valve Steamer Name Role Phone Nan Alejandro Primary Care Provider Unavailabl Jerry Miller Unavailable [phone] Encounters Encounter Location Date [facility] [address] 01/03/2025 Jerry Terrazas Plan Of Treatment Next Appt Details Provider Name:Jerry Terrazas , 05/11/2025 01:45:00 PM, [address] [place], [address], Progress Notes * Yisel RUSSELLDOB:[birth year] (55 yo F)Acc No.[id number]:01/03/2025 Progress Notes Patient: Yisel MEDINA Provider: Ania Terrazas DPM :1970 A ge:54 Y S ex:Female Date:01/03/2025 Address:[address] [place] [address] Pcp:Nan Alejandro Subjective: * Chief Complaints: * * Medical History: Objective: * Vitals: Assessment: Plan: * Treatment: * Images: * The named appointment provid er may or may not be the originator of this progress note, and it is not deemed complete until electronically signed by the appointment provider. Sign off status: Pending * Provider: Ania Terrazas DPM Date: 0 01/03/2025 Generated for Nneka west/Swetha/Alondra on: 1 07/08/2024 11:45 PM EST
[2025-05-07 14:47] LABS: MANUAL DIFF FLAG NO
[2025-05-07 15:32] LABS: Hematocrit 42.8 % (37.0-47.0); Hemoglobin 14.6 g/dl (12.0-16.0); Imm Gran Abs Auto 0.02 X10*3/uL (0.00-0.03); Imm Gran Pct Auto 0.2 % (0.0-0.4); Lymphocytes Absolute Auto 3.1 X10*3/uL (1.2-4.9); Mean Corpuscular HGB Conc 34.1 g/dl (31.0-35.0); Mean Corpuscular Hemoglobin 31.8 pg (27.0-33.0); Mean Corpuscular Volume 93.2 fL (80.0-98.0); NRBC Abs Auto 0.000 X10*3/uL (0.0-0.012); NRBC Pct Auto 0.0 /100WBC (0.0-0.2); Platelet Count 347 X10*3/uL (160-400); Red Blood Count 4.59 X10*6/uL (4.20-5.50); White Blood Count 8.7 X10*3/uL (4.8-10.8)
[2025-05-07 16:08] LABS: Anion Gap 13 (12-20); Blood Urea Nitrogen 12 mg/dL (9-16); Calcium 9.1 mg/dL (8.4-10.2); Carbon Dioxide 23 mmol/L (22-29); Chloride 110 mmol/L (96-108); Estimated Glomerular Filt Rate > 60; Potassium 3.9 mmol/L (3.3-5.1); Sodium 142 mmol/L (135-145); Uric Acid 3.8 mg/dL (2.4-5.7)
--- OUTSIDE RECORDS SUMMARY | 2025-05-07 23:44 | XMS_ITS | Patient Health Record ---
[facility] Address [address] [facility] [address] Care Team Providers Care Plant General Manager Name Role Phone Nan Alejandro Primary Care Provider Jerry Parks Unavailable [phone] Allergies No Known Allergies Reason For Referral [...] W/U Status Risk Notes Problem Plantar wart (21335045) Plantar wart (B07.0) Active confirmed Chronic Problem Onychomycosis (671371796) Tinea unguium (B35.1) Active confirmed Vital Signs Heart Rate 73 /min 11/09/2024 Blood pressure diastolic 71 mm Hg 03/13/2025 Height 5ft 2in in 03/13/2025 Blood pressure systolic 120 mm Hg 03/13/2025 Weight 120 lbs 03/13/2025 BMI 21.95 kg/m2 03/13/2025 Procedures Procedure Date Ordered Date Performed Result Body Sit e 27398-Ykpa Destruction, -05/29/2024 N/A 60968-Vslq Destruction, 06-1306/28/2024 N/A 74485-Qxng Destruction, 06-1307/31/2024 N/A 40957-Cgje Destruction, 06-1308/31/2024 N/A 66916-Nqhe Destruction, 06-1310/04/2024 N/A 15650-Nsnh Destruction, 06-1311/09/2024 N/A 63460-Bvog Destruction, 06-1312/04/2024 N/A 38873-Vibj Destruction, 06-1303/13/2025 N/A Encounters Encounter Location Date Provider [facility] [address] 05/29/2024 Jerry Mk Right foot pain M79.671 ; Plantar wart B07.0 and Left foot pain M79.672 [facility] [address] 06/28/2024 Jerry Mk Right foot pain M79.671 ; Plantar wart B07.0 ; Left foot pain M79.672 and Tinea pedis of both feet B35.[address] [facility] [address] 07/31/2024 Jerry Mk Right foot pain M79.671 ; Plantar wart B07.0 ; Left foot pain M79.672 and Tinea pedis of both feet B35.3 [facility] [address] [place] [address] 08/31/2024 Jerry Mk Right foot pain M79.671 ; Plantar wart B07.0 and Left foot pain M79.[address] [address] 10/04/2024 Jerry Mk Right foot pain M79.671 ; Plantar wart B07.0 and Left foot pain M79.[address] [address] 11/09/2024 Jerry Mk Right foot pain M79.671 ; Plantar wart B07.0 and Left foot pain M79.[address] [address] 12/04/2024 Jerry Mk Right foot pain M79.671 ; Plantar wart B07.0 ; Left foot pain M79.672 ; Pain in left ankle and joints of left foot M25.572 ; Bursitis of left foot M77.52 ; Hallux valgus (acquired), left foot M20.12 and Hallux limitus of left foot M20.5X2 [address] [address] 03/13/2025 Jerry Mk Right foot pain M79.671 ; Plantar wart B07.0 and Left foot pain M79.[address] [address] 05/29/2024 [facility] Mk [address] [address] [facility] [address] [address] 11/09/2024 [facility] [address] [address] 01/01/2025 Jerry Terrazas Assessments Encounter Date Diagnosis [...] X ray : Foot, left 3V 12/01/2023 95106-JSSEUFA NAIL, 6 OR MORE 08/05/2023 57816-LXVMBHX NAIL, 6 OR MORE 04/03/2021 21060-LTJYAZP NAIL, 6 OR MORE 07/25/2020 68740-SLDWIDV NAIL, 6 OR MORE 09/11/2021 29953-DIEGEPH NAIL, 6 OR MORE 07/01/2022 25939-ESDNNZP NAIL, 6 OR MORE 06/18/2021 28211-AQHOAYL NAIL, 6 OR MORE 04/01/2023 57295-Exrb Destruction, 1-14 05/03/2023 26159-Zhdz Destruction, -14 06/03/2023 49815-Rbsu Destruction, 1-14 07/05/2023 94728-Vzgf Destruction, -14 08/05/2023 62120-Gono Destruction, -14 06/18/2021 74262-Nanu Destruction, -14 08/07/2021 58157-Mvts Destruction, -14 09/11/2021 27336-Fdhq Destruction, -14 07/30/2022 96769-Mzly Destruction, -14 08/31/2022 61731-Ryob Destruction, -14 10/12/2022 46813-Yimf Destruction, -14 11/16/2022 08389-Ksbr Destruction, 1-14 12/14/2022 51214-Mfec Destruction, -14 01/21/2023 05350-Ueyl Destruction, 1-14 02/24/2023 50546-Kulm Destruction, 06-1304/01/2023 45072-Iaxz Destruction, 06-1310/16/2021 46316-Bivz Destruction, 06-1312/17/2021 48742-Nyed Destruction, 06-1301/29/2022 48870-Bfhh Destruction, 06-1303/04/2022 55029-Pdef Destruction, 06-1304/09/2022 12510-Xqbu Destruction, 06-1305/20/2022 92216-Sobt Destruction, 06-1307/01/2022 04246-Tebe Destruction, 06-1307/25/2020 99892-Zvjz Destruction, 06-1308/21/2020 94390-Lpjt Destruction, 06-1309/12/2020 00420-Veue Destruction, 06-1310/03/2020 02663-Fbno Destruction, 06-1310/24/2020 60733-Blam Destruction, 06-1311/25/2020 09361-Muif Destruction, 06-1312/19/2020 50350-Ihcv Destruction, 06-1301/13/2021 80548-Mjly Destruction, 06-1302/19/2021 56469-Ulgm Destruction, 06-1304/03/2021 41085-Datb Destruction, 06-1304/28/2021 89411-Osan Destruction, 06-1306/27/2020 82521-Dpfs Destruction, 06-1309/09/2023 26033-Qgng Destruction, 06-1311/03/2023 50550-Gedv Destruction, 06-1312/01/2023 01095-Tnfd Destruction, 06-1312/27/2023 54519-Vurd Destruction, 06-1301/26/2024 89836-Oqmm Destruction, 06-1302/24/2024 57384-Bzqs Destruction, 06-1303/27/2024 84950-Qbfx Destruction, 06-1304/24/2024 38553-Vqeg Destruction, 06-1305/29/2024 74585-Fpmn Destruction, 06-1306/28/2024 15404-Ypco Destruction, 06-1307/31/2024 88743-Tojb Destruction, 06-1308/31/2024 47332-Lgyz Destruction, 06-1310/04/2024 27048-Powe Destruction, 06-1311/09/2024 30227-Jnye Destruction, 06-1312/04/2024 90935-Naiu Destruction, 06-1303/13/2025 Next Appt Details Provider Name:Jerry Terrazas , 05/11/2025 01:45:00 PM, [address] [place] [address], [phone], Insurance Providers Payer Name Payer Address Payer Phone Subscriber Number Group Number Insured Name Patient Relationship to Insured Coverage Start Date Coverage End Date [facility] [address] [place] [address] [id number] Yisel Mejias Self - patient is the insured Medical (General) History Medical History History ICD Code Anxiety Back,Hip,and Knee pain Broken bones Chicken pox Depression Headaches Warts Surgical History Surgery Date(Month/Year) hysterectomy 2005 lumpectomy 2019 lumpectomy 12/2022 colonoscopy 07/2024 Hospitalization History Reason Date(Month/Year) [facility] Endoscopy 08/12/2023 Espitia- small bowel obstruction 10/04- 022 Espitia- bowel obstruction 08/2021
--- OUTSIDE RECORDS SUMMARY | 2025-05-07 23:45 | XMS_ITS | Patient Health Record ---
Author Organization [facility] Address [address] [place] [address] Care Team Providers Care Meat Process Worker Name Role Phone Amanda (RETIRED) Samuel PAK [...] Status Risk Notes Problem Colon cancer screening (497851180) Colon cancer screening (Z12.11) Active confirmed Problem Pre-procedure evaluation check (434293100) Encounter for other preprocedural examination (Z01.818) Active confirmed Plan Of Treatment Future Test Test Name Order Date COLONOSCOPY 02/23/2019 Insurance Providers Payer Name Payer Address Payer Phone Subscriber Number Group Number Insured Name Patient Relationship to Insured Coverage Start Date Coverage End Date [employer] [address] [place] [address] [phone] [id number] GARCIA RUSSELL Self - patient is the insured Medical (General) History Medical History History ICD Code anxiety/depression breast cancer/radiation therapy Surgical History Surgery Date(Month/Year) lumpectomy 01/2019 partial hysterectomy
== END 2025-05-07 13:48 | disposition home or self-care (01) ==
LOC: HO.LAB 13:47
PROVIDERS: PCP Physician Assistant; Visit Provider Physician Assistant
DX: M25.471 Effusion, right ankle (principal)
CPT/HCPCS: 36415; 80048; 84550; 85025

== ENCOUNTER 2025-05-07 13:47 | Outpatient (AMB) | payer BC, SELFPAY ==
--- NOTE | 2025-05-07 13:51 | MHC.PC.OV ---
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: No Accompanied by: Self / Same As Patient Allergies No Known Allergies Allergy (Verified 05/07/25 13:51) Tobacco use date assessed: 05/07/25 Dental Screening Dental Screen Date: 05/07/25 Did you have a dental visit in the last 12 months?: Yes Did you have a dental problem in the last 6 months where you did not have access to dental care?: No Was dental information given to patient?: Patient has dentist HPI HPI Comments History of Present Illness Details 54-year-old female with history of mood disorder, Schatzki's ring, hiatal hernia, DCIS presenting to the office today for management of chronic conditions and ER follow up. Depression/anxiety- Reports stability on fluvoxamine 150 mg daily. No SI/HI. 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 Not currently on any hormonal therapy. S/p right breast lumpectomy. Underwent adjuvant radiation therapy at [facility] in 2019. Following annually for screening mammograms Schatzki's ring/hiatal hernia-on pantoprazole 40 mg daily. No dysphagia or globus sensation. Following with Gastroenterology Concerns: [facility] ER visits x2 on 05/02 and 05/03. She reports while working, she hit her head on a machine. She did not fall or lose consciousness. Not on any blood thinners. However when she hit her head rapidly extended backwards and is also experiencing some neck pain as well. She is able to move her neck without difficulty. After the incident, she states she was not feeling right and had significant anxiety. 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 In the ED, CT of the head was negative for any acute abnormality. Chronic changes were noted consistent with age related atrophy. CT of the cervical spine showed multilevel degenerative changes but no acute fracture or trauma related thesis. 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 She does report longstanding neck pain and is experiencing some paresthesias in the hands bilaterally. There is also pain in the right shoulder and x-ray was negative for any acute injury. Diagnosed with mild concussion. She does have ongoing mild headache described as tension as well as the pain in the cervical spine and paresthesias. No nausea or vomiting. Right ankle pain-ongoing 2 weeks. There has been a redness of the area with some pain to touch. She does find her socks and shoes irritating. She has no difficulty with ambulation. Denies any known injury. She is able to ambulate but endorses a tightness. Health maintenance: Last screening mammogram 04/2024 without evidence of malignancy Last colonoscopy 07/2024 with 10 year follow-up advised. No evidence of malignancy. Dr. Rubio Pap smear is not indicated ROS: See HPI EXAM: Constitutional - Awake and Alert, No apparent distress Eyes - PERRL Cardiovascular - S1S2, RRR, No edema Respiratory - Normal lung expansion, Normal respiratory effort, No respiratory distress, CTA bilaterally Extremities - no calf tenderness bilaterally, no swelling MSK- dusky erythema over the right lateral malleolus with mild swelling compared to the left ankle. There is full range of motion. No warmth or induration. No fluctuance or skin breaks. Midline tenderness of the cervical spine and right paraspinal area Skin - Warm/Dry Neurological - Alert & oriented x3. Decreases sensation of the hands bilaterally. 5/5 strength. Negative tinnells test Psychological - Appropriate affect [facility] Medical History History of colitis Duodenitis Hiatal hernia Schatzki's ring Gastritis Partial obstruction of small intestine Depression Anxiety Surgical History History of esophagogastroduodenoscopy (EGD) Status post right breast lumpectomy (01/25/23) History of colonoscopy (08/23/24) History of left breast biopsy (02/02/19) Hx of hysterectomy (2005) Hx of lumpectomy (02/13/19) Family History Father Mesothelioma Emphysema lung Maternal Grandmother Heart attack Paternal Aunt Aneurysm Social History Household Members: Significant Other Housing: House Are you a primary youth care specialist to a significant other at home: No Do you presently have visiting nurse or other home services: No Alcohol intake: former Patient Tobacco Use Status: Current everyday Tobacco user Tobacco use type: Cigar Cigarette Packs Per Day: 1 Cigarettes Per Day: 2 e-Cigarette/Vaping Use: Never Used Substance Use Type: Marijuana Current occupational status: employed 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 Cognitive needs: No Hearing needs: No Vision needs: Yes (RX glasses) Questionnaire Thrive Questionnaire Date Thrive assessed: 11/27/24 XOCHITL-7 AMB Questionnaire XOCHITL-7 Date XOCHITL - 7 assessed: 11/27/24 Source: Developed by Drs. Ashwin Hunter, Gail Burgess, Alejandro Schilling and colleagues, with an educational mimi from [employer] (formerly [employer]). Physical exam (Primary Care) Vital Signs: Last Vital Signs Temp 97.9 F 05/07/25 13:54 Pulse 83 05/07/25 13:54 Resp 16 05/07/25 13:54 BP 98/66 05/07/25 13:54 Pulse Ox 98 05/07/25 13:54 Oxygen Delivery Method Room Air 05/07/25 13:54 BMI result Body Mass Index 22.9 Tobacco/Smoking Status: Tobacco use Status Tobacco use date assessed 05/07/25 05/07/25 13:57 Patient Tobacco Use Status Current everyday Tobacco 05/07/25 13:57 Tobacco use type Cigar 05/07/25 13:57 e-Cigarette/Vaping Use Never Used 05/07/25 13:57 Thrive Assessment: Date of Thrive Assessment Date Thrive assessed 11/27/24 05/07/25 13:57 Coding Level of Care Code Est Pt Level 5 (81171) Complex visit Add On G2211 Diagnoses Mild concussion S06.0XAA Right ankle swelling M25.471 Ossification of posterior longitudinal ligament M48.8X9 Time Spent (min) 50 Assessment & Plan Assessment & Plan (1) Mild concussion: Code(s): S06.0XAA - Concussion with loss of consciousness status unknown, initial encounter Category: Medical Plan: Reviewed head CT without any significant acute findings. Can use ibuprofen or Tylenol as needed for headaches. Recommend cognitive rest. Discussed mild symptoms would likely resolve in no longer than several weeks. Given mild symptoms, she is cleared to return to work without restrictions, except minimizing screen time (2) Right ankle swelling: Code(s): M25.471 - Effusion, right ankle Category: Medical Plan: Etiology unclear. No significant tenderness on exam and full range of motion. There is no warmth or significant erythema to suggest an infection. We will check uric acid level to rule out gout however there is no warmth and no prior history. Unlikely to be tendonitis or bursitis given absence of ongoing pain. Autoimmune disease possible but also seems less likely. Doubt tick bourne illness. Possible an irritant dermatitis related to she is in socks. Uric acid level ordered along with BMP and CBC. (3) Ossification of posterior longitudinal ligament: Code(s): M48.8X9 - Other specified spondylopathies, site unspecified Category: Medical Plan: MRI of the brain is ordered and referred to neurosurgery for further evaluation management Orders: Orders Basic Metabolic Panel 05/07/25 M25.471 - Effusion, right ankle Uric Acid 05/07/25 M25.471 - Effusion, right ankle MR cervical spine wo con Today G89.29 - Other chronic pain, M48.8X9 - Other specified spondylopathies, site unspecified, M54.2 - Cervicalgia, R20.2 - Paresthesia of skin Complete Blood Count Auto Diff 05/07/25 M25.471 - Effusion, right ankle Referrals Neuro Spine Referral G89.29 - Other chronic pain, M48.8X9 - Other specified spondylopathies, site unspecified, M54.2 - Cervicalgia, R20.2 - Paresthesia of skin Patient Instructions: Follow-up in the office in 6 months. Labs to be completed today. Referred for MRI of the cervical spine as well as referral to Neurosurgery.
[2025-05-07 13:54] VITALS: BP 98/66; PULSE 83; RESP 16; TEMP 36.6; O2SAT 98; BMI 22.9
--- OUTSIDE RECORDS SUMMARY | 2025-05-07 22:33 | XMS_ITS | Encounter Summary ---
Author Organization [facility] Address [address] [place] [address] Phone Care Team Providers Care Office Support Assistant Name Role Phone Samuel Patel MD Primary Care Provider Reason for Referral * - Closed Specialty Diagnoses / Procedures Referred By Contac t Referred To Contact Procedures NM Other Outside (No Interpretation) System, Provider Not In, PhD [facility] [address] [place] [address] Referral ID Status Reason Start Date Expiration Date Visits Re quested Visits Authorized [id number] Closed 03/06/2019 03/05/2020 1 1 Encounter Details Date Type Department Care Team (Late st Contact Info) Description 03/06/2019 Ancillary Orders [facility],Outside Imaging [address] [place], [place] [id number] System, Provider Not In, [facility] [address] [place] [address] Social History Tobacco Use Types Packs/Day Years [...] on filedocumented in this encounter Care Teams Office Support Assistant Relationship Specialty Start Date End Date Samuel Patel MD [address] [place] [address] [place] [id number] PCP - General Internal Medicine 03/03/19 documented as of this encounter Additional Source Comments The information contained in this document represents components of the legal health record. It is not the complete legal health record.[facility]
--- OUTSIDE RECORDS SUMMARY | 2025-05-07 22:33 | XMS_ITS | Clinical Summary ---
Author Organization [facility] Address [address] [place] [address] Phone Care Team Providers Care Finance Specialist Name Role Phone Samuel Patel MD [...] every 6 (six) hours as needed. PARTIAL FILL:[id number] Active Active Problems Problem Noted Date Diagnosed Date DCIS (ductal carcinoma in situ) of breast 2018 Cancer Staging:Pathologic: pT1mi, pN0(sn), cM0, ER: Negative, MS: Negative - Signed by Jong Guy MD [...] PPO CIGNA PPO CIGNA PPO Care Teams Finance Specialist Relationship Specialty Start Date End Date Samuel Patel MD [address] [place] [address] [place] [address] PCP - General Internal Medicine 03/03/19 Additional Source Comments The information contained in this document represents components of the legal health record. It is not the complete legal health record.[facility]
== END 2025-05-07 14:26 | disposition home or self-care (01) ==
PROVIDERS: PCP Physician Assistant; Visit Provider Physician Assistant
DX: S06.0XAA Concussion with loss of consciousness status unknown, initial encounter (principal); M25.471 Effusion, right ankle; M48.8X9 Other specified spondylopathies, site unspecified